=== PATIENT | female | born 1940 | race Caucasian/White ===

== ENCOUNTER 2018-09-13 04:52 | Inpatient (IN) | payer MEDICARE, OTHER ==
[~2018-09-13] VITALS: Ht 152.4 cm; Wt 89.9 kg
[~2018-09-13 04:52] MED LIST: ALEN70TA5 ORAL; AMLO-145 ORAL; ASPI-903 PO; ATEN100T ORAL; ATEN50TA PO; ATOR40TA68 PO; BISA5TAB6 PO; CELE100C85; CLON-230; CLON-379 PO; DULO60CA59 ORAL; ESCI10TA; HYDR-3601 PO; HYDR25TA6 PO; KETO30VI IV; LISI-471 PO; LISI40TA3 ORAL; LUBI24CA7 PO; OSC500D PO; POLY17PO6 PO
[2018-09-13 04:57] VITALS: Ht 152.4 cm; Wt 89.9 kg
[2018-09-13] MEDS ORDERED: ONDANSETRON 4 MG INJ IV STA ×2 (05:02→08:42)
[2018-09-13] MEDS ORDERED: morphine 2 MG INJ IV STA (05:02)
--- NOTE | 2018-09-13 06:36 | ERD ---
ER Documentation Chief Complaint Chief Complaint bib ra from home for lower back pain, s/p fall this morning HPI 77-year-old female who presents to the emergency room complaining of paraspinal diffuse lumbar back pain. The patient lives at home alone and at night she goes to the bathroom regularly. She did not use her cane which is normal for her ambulation. The patient states that she fell to the ground. She occasionally loses her balance and this felt similar. She denies hitting her head or losing consciousness. The patient had bruised her left forearm and fell onto her lumbar back. The patient denies any prodrome of headache chest pain or shortness of breath. Patient is describing moderate throbbing intermittent paraspinal lumbar back pain. No numbness or tingling. She denies any neck pain. No significant pain to the left elbow. ROS All systems reviewed and are negative except as per history of present illness. Medications Home Meds Reported Medications Lisinopril* (Lisinopril*) 40 Mg Tablet, 1 TAB ORAL DAILY 09/13/18 Hydrochlorothiazide* (Hydrochlorothiazide*) 25 Mg Tab, 25 MG PO DAILY, #30 TAB 09/13/18 Duloxetine Hcl* (Duloxetine Hcl*) 60 Mg Capsule.dr, 1 CAP ORAL DAILY 09/13/18 Clonidine Hcl* (Clonidine Hcl*) 0.1 Mg Tab, 0.1 MG PO Q8 PRN for q8, TAB FOR HTN 09/13/18 Calcium Carbonate/Vitamin D3 (Oyster Shell Calcium + D Cplt) 1 Each Tablet, 1 TAB PO DAILY, TAB 09/13/18 Atorvastatin* (Atorvastatin*) 40 Mg Tablet, 40 MG PO QHS, #30 TAB 09/13/18 Atenolol* (Atenolol*) 100 Mg Tablet, 1 TAB ORAL DAILY 09/13/18 Aspirin* (Aspirin* Chew) 81 Mg Tab.chew, 81 MG PO DAILY, TAB.CHEW 09/13/18 Amlodipine Besylate* (Amlodipine Besylate*) 5 Mg Tablet, 1 TAB ORAL DAILY 09/13/18 Alendronate Sodium* (Fosamax*) 70 Mg Tablet, 1 TAB ORAL weekly on Thursday09/13/18 Discontinued Reported Medications Celecoxib* (Celebrex*) 100 Mg Capsule 06/01/09 Clonidine Hcl (Clonidine Hcl) 0.1 Mg Tablet 06/01/09 Escitalopram Oxalate* (Lexapro*) 10 Mg Tablet 06/01/09 Allergies Allergies: Coded Allergies: No Known Allergy (Verified Allergy, Unknown, 06/26/06) PMhx/Soc History of Surgery: Yes (CARDIAC) Anesthesia Reaction: No Hx Neurological Disorder: No Hx Respiratory Disorders: No Hx Cardiac Disorders: Yes (HTN) Hx Psychiatric Problems: No Hx Miscellaneous Medical Probl: Yes (ARTHRITIS) Hx Alcohol Use: No Hx Substance Use: No Hx Tobacco Use: No Smoking Status: Never smoker FmHx Family History: No diabetes Physical Exam Vitals Vital Signs Date Temp Pulse Resp B/P (MAP) Pulse Ox O2 O2 Flow FiO2 Time Delivery Rate 09/13/18 73 17 141/58 96 Room Air 06:58 (85) 09/13/18 98.8 88 19 150/82 100 Room Air 04:57 (104) 09/13/18 98.8 87 19 154/81 100 04:57 (105) Physical Exam Airway is intact Bilateral breath sounds Strong distal pulses No obvious deficits General: Well developed, well nourished, no acute distress Head: Normocephalic, atraumatic Eyes: Pupils equally reactive, EOM intact ENT: Moist mucous membranes Neck: Supple, no lymphadenopathy, No midline tenderness, deformities, step-offs to the cervical spine, full active and passive range of motion without midline pain. Respiratory: Lungs clear bilaterally, no distress, no chest wall tenderness, no crepitus Cardiovascular: RRR, no murmurs, rubs, or gallops Abdominal: Soft, non-tender, non-distended, no peritoneal signs, pelvis is stable : Deferred MSK: No edema, no unilateral swelling, 5/5 strength, no midline tenderness deformities or step-offs to the thoracolumbar spine, there is reproducible soft tissue tenderness to the paraspinal lumbar muscles. Some subtle bruising just distal to the olecranon process of the left upper extremity without bony abnormalities. Normal internal and external rotation of the upper extremity. Normal flexion and extension, pronation and supination. Neurovascular intact distally. Neurologic: Alert and oriented, moving all extremities, normal speech, no focal weakness, no cerebellar signs Skin: No ecchymoses or bruising to the chest or abdomen Psych: Normal mood Result Diagram: 09/13/18 0510 09/13/18 05 Results 24 hrs Laboratory Tests Test 09/13/18 05:10 White Blood Count 8.8 10^3/ul Red Blood Count 4.56 10^6/ul Hemoglobin 12.8 g/dl Hematocrit 40.5 % Mean Corpuscular Volume 88.8 fl Mean Corpuscular Hemoglobin 28.1 pg Mean Corpuscular Hemoglobin Concent 31.6 g/dl Red Cell Distribution Width 12.9 % Platelet Count 249 10^3/UL Mean Platelet Volume 8.6 fl Immature Granulocytes % 1.300 % Neutrophils % 61.7 % Lymphocytes % 26.7 % Monocytes % 9.0 % Eosinophils % 0.8 % Basophils % 0.5 % Nucleated Red Blood Cells % 0.0 /100WBC Immature Granulocytes # 0.110 10^3/ul Neutrophils # 5.4 10^3/ul Lymphocytes # 2.3 10^3/ul Monocytes # 0.8 10^3/ul Eosinophils # 0.1 10^3/ul Basophils # 0.0 10^3/ul Nucleated Red Blood Cells # 0.0 10^3/ul Sodium Level 142 mmol/L Potassium Level 4.3 mmol/L Chloride Level 102 mmol/L Carbon Dioxide Level 30 mmol/L Anion Gap 10 Blood Urea Nitrogen 18 mg/dl Creatinine 0.72 mg/dl Est Glomerular Filtrat Rate mL/min mL/min Glucose Level 125 mg/dl Calcium Level 9.9 mg/dl Total Bilirubin 0.8 mg/dl Direct Bilirubin 0.00 mg/dl Indirect Bilirubin 0.8 mg/dl Aspartate Amino Transf (AST/SGOT) 24 IU/L Alanine Aminotransferase (ALT/SGPT) 21 IU/L Alkaline Phosphatase 66 IU/L Troponin I < 0.012 ng/ml Total Protein 7.6 g/dl Albumin 4.4 g/dl Globulin 3.20 g/dl Albumin/Globulin Ratio 1.37 Lipase 86 U/L Current Medications Medications Dose Sig/Lauryn Start Time Status Last (Trade) Ordered Route PRN Stop Time Admin Dose Reason Admin Morphine 2 mg ONCE STAT 09/13/18 DC 09/13/18 Sulfate IV 05:02 05:10 (morphine) 09/13/18 05:03 Ondansetron 4 mg ONCE STAT 09/13/18 DC 09/13/18 HCl (Zofran IV 05:02 05:10 Inj) 09/13/18 05:03 Morphine 4 mg ONCE STAT 09/13/18 DC 09/13/18 Sulfate IV 08:42 08:47 (morphine) 09/13/18 08:43 Ondansetron 4 mg ONCE STAT 09/13/18 DC 09/13/18 HCl (Zofran IV 08:42 08:47 Inj) 09/13/18 08:43 Ondansetron 4 mg BRIDGE ORDER 09/13/18 HCl (Zofran PRN IV 09:00 Inj) NAUSEA/VOMITI 09/14/18 08:59 NG 650 mg ER BRIDGE 09/13/18 Acetaminophen PRN PO 09:00 (Tylenol .MILD PAIN 09/14/18 08:59 Tab) 1-3 OR TEMP Procedures/MDM EKG, MONITORS, & DIAGNOSTIC IMAGING: CXR: IMPRESSION: 1. No radiographic evidence for acute cardiopulmonary disease 2. Left basilar discoid atelectasis and hemidiaphragmatic elevation 3. Mild cardiomegaly and atherosclerotic vascular disease 4. Status post median sternotomy XR L Spine: IMPRESSION: 1. Indeterminate age T12 anterior superior compression fracture. Consider MR to further evaluate. 2. Grade 1 spondylolisthesis of L4 and L5 without definite evidence for spondylolysis on plain film. Recommend additional imaging 3. Atherosclerotic vascular disease CT L Spine: IMPRESSION: 1. Partially imaged probable acute mild superior endplate compression fracture of T12 with less than 20% height loss. No retropulsion. No central canal compromise. 2. Lumbar vertebral body heights are maintained. 3. Severe discogenic disease and degenerative grade 1 anterolisthesis at L4-L5, as described above. 4. Right pars interarticularis defect at L5-S1 with no spondylolisthesis. 5. Mild lumbar spondylosis/degenerative enthesopathy in the remainder of the lumbar spine, as described above. RPTAT: [facility] CT T Spine IMPRESSION: Acute appearing, mild compression fracture of the superior endplate of T12 vertebral body with less than 20% height loss, no significant retropulsion, and no evidence of extension into the posterior elements. Moderate spondylosis in the remainder of the thoracic spine, as above. RPTAT:AAJJ LAB INTERPRETATION: I reviewed the laboratory testing and it shows no evidence of acute process MEDICAL DECISION MAKING: The patient's fall seems very mechanical and consistent with falls in the past. She does live alone but is able to care for activities of daily living, has frequent visitors throughout the day. She did not use her cane in the evening which is the likely etiology of her fall. The patient had no prodrome of headache chest pain or shortness of breath to suggest more serious etiology such as syncope stroke or ACS. Patient is only really complaining of lumbar back pain. She has a small contusion of the left upper extremity without bony abnormalities, no indication for x-ray imaging. No head trauma or loss of consciousness. Patient is very clear about this. No indication for CT imaging of the brain. She does not take anticoagulation medication. The patient does not meet high-risk criteria and based on NEXUS cervical spine criteria there is no indication for cervical spine imaging at this time. I do believe dedicated imaging of the lumbar spine would be appropriate. The overnight physician ordered x-ray imaging but I believe given the patient's age and body habitus this would be insufficient. CT imaging of the lumbar spine has been ordered. ER COURSE: * Patient was given pain control medication. * Patient is still having bouts of exacerbation of pain. The patient has a T12 compression fracture less than 50%. While outpatient management would be possible the patient lives in a walk up apartment. She is having difficulty ambulating in the emergency room despite a walker. For these reasons inpatient hospitalization for pain control, PT and possible outpatient PT placement would be reasonable. CONSULTATION: None DISPOSITION PLAN: Accepting care team and consultations: I discussed the current laboratory data, diagnostic imaging and emergency care provided. Admitting team: Dr. Serrano Admitting team indication: Insurance directed Departure Diagnosis: Primary Impression: T12 compression fracture Encounter type: initial encounter Qualified Codes: S22.080A - Wedge compression fracture of t11-T12 vertebra, initial encounter for closed fracture Condition: ASHLEY Cade MD Sep 13, 2018 06:36
[2018-09-13] MEDS ORDERED: morphine 4 MG/ML VIAL IV STA (08:42)
[2018-09-13] MEDS ORDERED: ACETAMINOPHEN 325 MG TAB PO PRN (09:00)
[2018-09-13] MEDS ORDERED: ONDANSETRON 4 MG INJ IV PRN (09:00)
--- NOTE | 2018-09-13 09:56 | HP ---
Date/Time of Note Date/Time of Note DATE: 09/13/18 TIME: 09:56 Assessment/Plan VTE Prophylaxis Pharmacological prophylaxis: LMWH Lines/Catheters IV [facility]from [facility] Saline Lock Assessment/Plan Hospital Course 77-year-old female with comorbidities including CAD status post coronary artery bypass grafting, hypertension, dyslipidemia, osteoporosis, osteoarthritis, and obesity who had an unwitnessed fall at home with imaging studies showing mild compression fracture of the superior endplate of T12 vertebral body, who will be admitted to inpatient setting for further treatment and evaluation. 1. Acute T12 vertebral body fracture. Continue pain control. Physical therapy evaluation. 2. Status post fall. Etiology unclear. Obtain brain CT scan to rule out any acute intracranial findings. Physical therapy evaluation. Fall precautions. 3. Hypertension. Resume antihypertensives (decreased dosing to ensure that hypotension is not causing the fall; patient has prior history of falls). 4. CAD, status post coronary artery bypass grafting. Resume aspirin. Resume beta-blockers and FAN inhibitors. 5. Dyslipidemia. Resume statins. 6. Osteoporosis. Resume calcium and vitamin D supplements. 7. Obesity. BMI more than 38 kg/m. Plan: The patient will be admitted to inpatient medical surgical floor. The patient will be started on a low-cholesterol diet. The patient will be started on DVT prophylaxis. The patient will remain a full code. Activities will be with assist . The rest of the patient's management will be based on the clinical course and the results of diagnostic studies. Based on the patient's clinical presentation, she most probably requires at least 1 midnight's stay for further management and evaluation of her clinical presentation. The patient was seen in collaboration with Dr. Serrano. Result Diagram: 09/13/18 0510 09/13/18 0510 Results 24hrs Laboratory Tests Test 09/13/18 05:10 White Blood Count 8.8 Red Blood Count 4.56 Hemoglobin 12.8 Hematocrit 40.5 Mean Corpuscular Volume 88.8 Mean Corpuscular Hemoglobin 28.1 L Mean Corpuscular Hemoglobin Concent 31.6 L Red Cell Distribution Width 12.9 Platelet Count 249 Mean Platelet Volume 8.6 Immature Granulocytes % 1.300 H Neutrophils % 61.7 Lymphocytes % 26.7 Monocytes % 9.0 Eosinophils % 0.8 Basophils % 0.5 Nucleated Red Blood Cells % 0.0 Immature Granulocytes # 0.110 H Neutrophils # 5.4 Lymphocytes # 2.3 Monocytes # 0.8 Eosinophils # 0.1 Basophils # 0.0 Nucleated Red Blood Cells # 0.0 Sodium Level 142 Potassium Level 4.3 Chloride Level 102 Carbon Dioxide Level 30 Anion Gap 10 Blood Urea Nitrogen 18 Creatinine 0.72 Est Glomerular Filtrat Rate mL/min Glucose Level 125 Calcium Level 9.9 Total Bilirubin 0.8 Direct Bilirubin 0.00 Indirect Bilirubin 0.8 Aspartate Amino Transf (AST/SGOT) 24 Alanine Aminotransferase (ALT/SGPT) 21 Alkaline Phosphatase 66 Troponin I < 0.012 Total Protein 7.6 Albumin 4.4 Globulin 3.20 Albumin/Globulin Ratio 1.37 Lipase 86 HPI/ROS Admit Date/Time Admit Date/Time Hx of Present Illness Reason for admission: Back pain, status post fall. This is a 77-year-old female with past medical history of CAD, S/P CABG, hypert ension, dyslipidemia, obesity, osteoporosis, and osteoarthritis. The patient lives alone in her apartment. The patient sustained a fall that was unwitnessed. As per the patient, this happened because she "lost her balance." The patient denied any loss of consciousness, palpitations, or dizziness. The patient fell on her back with impact to the back and to the left forearm. The patient denied hitting her head. The patient was complaining of throbbing back pain and left elbow pain following the fall. The patient denied any numbness or tingling. After the fall, the patient was unable to get up from the floor and she managed to crawl on the floor to reach the telephone to call her daughter. Later, paramedics were called and the patient was brought to the emergency room. The patient denied any urinary incontinence. In the emergency room, the patient underwent imaging studies of the thoracic spine CT showing acute appearing, mild compression fracture of the superior endplate of T12 vertebral body with less than 20% height loss with no significant retropulsion. She was treated with IV morphine in the emergency room. ROS Constitutional: no complaints Eyes: no complaints ENT: no complaints Respiratory: no complaints Cardiovascular: no complaints Gastrointestinal: no complaints Genitourinary: other (Nocturia) Musculoskeletal: back pain, bone/joint pain Skin: no complaints Neurologic: no complaints Endocrine: no complaints Lymphatic: no complaints Psychological: no complaints Immunologic: no complaints PMH/Family/Social Past Medical History 1. Hypertension. 2. CAD. 3. Dyslipidemia. 4. Obesity. 5. Osteoporosis. 6. Osteoarthritis. Medications Current Medications Ondansetron HCl (Zofran Inj) 4 mg BRIDGE ORDER PRN IV NAUSEA/VOMITING; Start 09/13/18 at 09:00; Stop 09/14/18 at 08:59 Acetaminophen (Tylenol Tab) 650 mg ER BRIDGE PRN PO .MILD PAIN 1-3 OR TEMP; Start 09/13/18 at 09:00; Stop 09/14/18 at 08:59 Coded Allergies: No Known Allergy (Verified Allergy, Unknown, 06/26/06) Past Surgical History 1. CABG. 2. Appendectomy. Social History Lives at home by herself. Alcohol Use: none Smoking Status: Never smoker Drug Use: none Exam/Review of Systems Vital Signs Vitals Vital Signs Date Temp Pulse Resp B/P (MAP) Pulse Ox O2 O2 Flow FiO2 Time Delivery Rate 09/13/18 67 17 141/74 95 Room Air 09:18 (96) 09/13/18 98.8 04:57 Exam Exam General: Obese, 77 year-old female lying in bed in no apparent distress. HEENT: Normocephalic, atraumatic. Eyes: Anicteric sclerae, conjunctivae clear. ENT: Nasal septum midline, oral mucosa moist. Neck: Short and obese. Respiratory: Bilaterally diminished breath sounds. No use of accessory muscles of respiration. No adventitious breath sounds. Cardiovascular: S1, S2 heard. Sternotomy scar. Regular rate and rhythm. Abdomen: Soft, nontender, and nondistended. Bowel sounds positive in all 4 quadrants. Genitourinary: Deferred. Extremities: No cyanosis, no clubbing, no edema. Peripheral pulses palpable. Tenderness in the left elbow area. Neurologic: Cranial nerves II through XII grossly intact. The patient is awake, alert, and oriented. Additional Comments Thoracic Spine CT IMPRESSION: Acute appearing, mild compression fracture of the superior endplate of T12 vertebral body with less than 20% height loss, no significant retropulsion, and no evidence of extension into the posterior elements. Moderate spondylosis in the remainder of the thoracic spine. CXR IMPRESSION: 1. No radiographic evidence for acute cardiopulmonary disease 2. Left basilar discoid atelectasis and hemidiaphragmatic elevation 3. Mild cardiomegaly and atherosclerotic vascular disease 4. Status post median sternotomy MACIDO,DENG BUSINESS CONTINUITY MANAGEMENT DIRECTOR Sep 13, 2018 09:56
[2018-09-13 10:00] VITALS: BP 155/67; PULSE 70; RESP 20
[2018-09-13] MEDS ORDERED: NACL 0.9% 3 ML SYG IV SCH (10:00)
--- NOTE | 2018-09-13 10:37 | CONDCODE ---
Medicare Criteria-> INP to OBS Patient still in hospital: Yes Medicare Inp->Obs Criteria met: Yes I personally scribed for DENG AMEZCUA NP ([facility] on 09/13/18 at 10:37. Electronically submitted by Zeinab Martinez ([facility] DENG AMEZCUA NP Sep 13, 2018 10:37
[2018-09-13] MEDS: CALCIUM/VITAMIN D (500/200) TAB PO SCH (10:48)
[2018-09-13] MEDS: LISINOPRIL 20 MG TAB PO SCH (10:48)
[2018-09-13] MEDS: AMLODIPINE 2.5 MG TAB PO SCH (10:48)
[2018-09-13] MEDS: HYDROCHLOROTHIAZIDE 25 MG TAB PO SCH (10:48)
[2018-09-13] MEDS: ASPIRIN 81 MG TAB PO SCH (10:49)
[2018-09-13] MEDS: HYDROCODONE/APAP (5/325) TAB PO PRN ×2 (10:52→16:54)
[2018-09-13] MEDS ORDERED: NAPROXEN 500 MG TAB PO PRN (11:00)
[2018-09-13] MEDS: ENOXAPARIN 40 MG/0.4 ML SYG SC SCH (11:00)
[2018-09-13] MEDS ORDERED: hydrALAzine 20 MG INJ IV PRN (11:00)
[2018-09-13] MEDS: DULOXETINE 30 MG CAP DR PO SCH (12:02)
[2018-09-13] MEDS: ATENOLOL 25 MG TAB PO SCH ×2 (12:03→20:35)
[2018-09-13 14:25] VITALS: BP 109/55; PULSE 71; RESP 18
[2018-09-13] MEDS: ONDANSETRON 4 MG INJ IV PRN (16:15)
[2018-09-13] MEDS: morphine 2 MG INJ IV PRN ×2 (16:15→21:17)
[2018-09-13] MEDS: BISACODYL (EC) 5 MG TAB PO PRN (16:54)
[2018-09-13 19:42] VITALS: BP 151/68; PULSE 84; RESP 18
[2018-09-13 19:45] VITALS: BP 114/55; PULSE 68; RESP 18
[2018-09-13] MEDS: POLYETHYLENE GLYCOL 17 GM PACKET PO SCH (20:34)
[2018-09-13] MEDS: ATORVASTATIN 40 MG TAB PO SCH (20:35)
[2018-09-14] VITALS (7 sets, daily range): BP systolic 126–177; BP diastolic 7–77; PULSE 84–92; RESP 18–20
[2018-09-14] MEDS: ONDANSETRON 4 MG INJ IV PRN ×3 (02:47→16:37)
[2018-09-14] MEDS: ACETAMINOPHEN 325 MG TAB PO PRN ×3 (02:56→22:25)
[2018-09-14] MEDS: HYDROCHLOROTHIAZIDE 25 MG TAB PO SCH (06:53)
--- NOTE | 2018-09-14 08:05 | PN ---
Date/Time of Note Date/Time of Note DATE: 09/14/18 TIME: 08:02 Assessment/Plan VTE Prophylaxis Risk score (from Nsg)>0 risk: 5 SCD applied (from Nsg): Yes Pharmacological prophylaxis: LMWH Lines/Catheters IV Catheter Type (from Nrsg): Saline Lock Assessment/Plan Hospital Course SUBJECTIVE: Constipated. OBJECTIVE: Physical Exam General: Obese, 77 year-old female lying in bed in no apparent distress. HEENT: Normocephalic, atraumatic. Eyes: Anicteric sclerae, conjunctivae clear. ENT: Nasal septum midline, oral mucosa moist. Neck: Short and obese. Respiratory: Bilaterally diminished breath sounds. No use of accessory muscles of respiration. No adventitious breath sounds. Cardiovascular: S1, S2 heard. Sternotomy scar. Regular rate and rhythm. Abdomen: Soft, nontender, and nondistended. Bowel sounds positive in all 4 quadrants. Genitourinary: Deferred. Extremities: No cyanosis, no clubbing, no edema. Peripheral pulses palpable. Tenderness in the left elbow area. Neurologic: Cranial nerves II through XII grossly intact. The patient is awake, alert, and oriented. Labs & Vitals per chart ASSESSMENT & PLAN 77-year-old female with comorbidities including CAD status post coronary artery bypass grafting, hypertension, dyslipidemia, osteoporosis, osteoarthritis, and obesity who had an unwitnessed fall at home with imaging studies showing mild compression fracture of the superior endplate of T12 vertebral body, who was admitted to inpatient setting for further treatment and evaluation. 1. Acute T12 vertebral body fracture. Continue pain control. Physical therapy evaluation. 2. Status post fall. Etiology unclear. Brain CT scan negative for any stroke. Physical therapy evaluation. Fall precautions. 3. Hypertension. Continue antihypertensives (decreased dosing to ensure that hypotension is not causing the fall; patient has prior history of falls). 4. CAD, status post coronary artery bypass grafting. Continue aspirin. Continue beta-blockers and FAN inhibitors. 5. Dyslipidemia. Continue statins. 6. Osteoporosis. Continue calcium and vitamin D supplements. 7. Obesity. BMI more than 38 kg/m. 8. Fluids, electrolytes, and nutrition. Low-cholesterol diet. 9. DVT prophylaxis. Subcutaneous Lovenox. 10. Plan. Continue pain control. Await physical therapy evaluation. Discharge disposition based on physical therapy evaluation. The patient was seen in collaboration with Dr. Serrano. Result Diagram: 09/14/18 0446 09/14/18 0446 Results 24hrs Laboratory Tests Test 09/13/18 20:00 09/14/18 04:46 Urine Color YELLOW Urine Clarity CLEAR Urine pH 7.0 Urine Specific [place] 1.013 Urine Ketones NEGATIVE Urine Nitrite NEGATIVE Urine Bilirubin NEGATIVE Urine Urobilinogen NEGATIVE Urine Leukocyte Esterase NEGATIVE Urine Microscopic RBC 3 Urine Microscopic WBC 0 Urine Bacteria FEW A Urine Hemoglobin 1+ H Urine Glucose NEGATIVE Urine Total Protein NEGATIVE White Blood Count 13.2 #H Red Blood Count 4.82 Hemoglobin 13.4 Hematocrit 43.0 Mean Corpuscular Volume 89.2 Mean Corpuscular Hemoglobin 27.8 L Mean Corpuscular Hemoglobin Concent 31.2 L Red Cell Distribution Width 12.7 Platelet Count 318 # Mean Platelet Volume 8.7 Immature Granulocytes % 0.900 H Neutrophils % 73.1 Lymphocytes % 20.3 Monocytes % 5.4 Eosinophils % 0.1 Basophils % 0.2 Nucleated Red Blood Cells % 0.0 Immature Granulocytes # 0.120 H Neutrophils # 9.7 H Lymphocytes # 2.7 Monocytes # 0.7 Eosinophils # 0.0 Basophils # 0.0 Nucleated Red Blood Cells # 0.0 Sodium Level 136 Potassium Level 3.6 Chloride Level 91 #L Carbon Dioxide Level 32 H Anion Gap 13 Blood Urea Nitrogen 13 Creatinine 0.70 Est Glomerular Filtrat Rate mL/min Glucose Level 168 Calcium Level 10.2 Phosphorus Level 4.9 Magnesium Level 1.7 Total Bilirubin 0.8 Direct Bilirubin 0.00 Indirect Bilirubin 0.8 Aspartate Amino Transf (AST/SGOT) 27 Alanine Aminotransferase (ALT/SGPT) 20 Alkaline Phosphatase 72 Total Protein 8.1 Albumin 4.9 Globulin 3.20 Albumin/Globulin Ratio 1.53 Triglycerides Level 139 Cholesterol Level 167 LDL Cholesterol, Calculated 86 HDL Cholesterol 53 Cholesterol/HDL Ratio 3.1 Exam/Review of Systems Exam Vitals Vital Signs Date Temp Pulse Resp B/P (MAP) Pulse Ox O2 O2 Flow FiO2 Time Delivery Rate 09/14/18 97.9 89 18 159/70 93 02:00 (99) 09/13/18 Room Air 10:00 Results Results 24hrs Laboratory Tests Test 09/13/18 20:00 09/14/18 04:46 Urine Color YELLOW Urine Clarity CLEAR Urine pH 7.0 Urine Specific [place] 1.013 Urine Ketones NEGATIVE Urine Nitrite NEGATIVE Urine Bilirubin NEGATIVE Urine Urobilinogen NEGATIVE Urine Leukocyte Esterase NEGATIVE Urine Microscopic RBC 3 Urine Microscopic WBC 0 Urine Bacteria FEW A Urine Hemoglobin 1+ H Urine Glucose NEGATIVE Urine Total Protein NEGATIVE White Blood Count 13.2 #H Red Blood Count 4.82 Hemoglobin 13.4 Hematocrit 43.0 Mean Corpuscular Volume 89.2 Mean Corpuscular Hemoglobin 27.8 L Mean Corpuscular Hemoglobin Concent 31.2 L Red Cell Distribution Width 12.7 Platelet Count 318 # Mean Platelet Volume 8.7 Immature Granulocytes % 0.900 H Neutrophils % 73.1 Lymphocytes % 20.3 Monocytes % 5.4 Eosinophils % 0.1 Basophils % 0.2 Nucleated Red Blood Cells % 0.0 Immature Granulocytes # 0.120 H Neutrophils # 9.7 H Lymphocytes # 2.7 Monocytes # 0.7 Eosinophils # 0.0 Basophils # 0.0 Nucleated Red Blood Cells # 0.0 Sodium Level 136 Potassium Level 3.6 Chloride Level 91 #L Carbon Dioxide Level 32 H Anion Gap 13 Blood Urea Nitrogen 13 Creatinine 0.70 Est Glomerular Filtrat Rate mL/min Glucose Level 168 Calcium Level 10.2 Phosphorus Level 4.9 Magnesium Level 1.7 Total Bilirubin 0.8 Direct Bilirubin 0.00 Indirect Bilirubin 0.8 Aspartate Amino Transf (AST/SGOT) 27 Alanine Aminotransferase (ALT/SGPT) 20 Alkaline Phosphatase 72 Total Protein 8.1 Albumin 4.9 Globulin 3.20 Albumin/Globulin Ratio 1.53 Triglycerides Level 139 Cholesterol Level 167 LDL Cholesterol, Calculated 86 HDL Cholesterol 53 Cholesterol/HDL Ratio 3.1 Medications Medication Current Medications IV Flush (NS 3 ml) 3 ml PER PROTOCOL IV ; Start 09/13/18 at 10:00 Ondansetron HCl (Zofran Inj) 4 mg Q6H PRN IV NAUSEA/VOMITING Last administered on 09/14/18at 02:47; Admin Dose 4 MG; Start 09/13/18 at 10:00 Acetaminophen (Tylenol Tab) 650 mg Q6H PRN PO .PAIN 1-3 OR TEMP Last administered on 09/14/18at 02:56; Admin Dose 650 MG; Start 09/13/18 at 10:00 Acetaminophen/ Hydrocodone Bitart ([place] (5/325)) 1 tab Q6H PRN PO .MOD PAIN 4- 6 Last administered on 09/13/18at 16:54; Admin Dose 1 TAB; Start 09/13/18 at 10:00 Morphine Sulfate (morphine) 2 mg Q4H PRN IV .SEVERE PAIN 7-10 Last administered on 09/13/18 21:17; Admin Dose 2 MG; Start 09/13/18 at 10:00 Enoxaparin Sodium (Lovenox) 40 mg DAILY SC Last administered on 09/13/18 11:00; Admin Dose 40 MG; Start 09/13/18 at 10:00 Aspirin (Aspirin) 81 mg DAILY PO Last administered on 09/13/18 10:49; Admin Dose 81 MG; Start 09/13/18 at 10:00 Atorvastatin Calcium (Lipitor) 40 mg QHS PO Last administered on 09/13/18 20:35; Admin Dose 40 MG; Start 09/13/18 at 21:00 Calcium/Vitamin D (Oyster Shell/ Vit-D (500/200)) 1 tab DAILY PO Last administered on 09/13/18 10:48; Admin Dose 1 TAB; Start 09/13/18 at 10:00 Hydrochlorothiazide (Hydrochlorothiazide) 25 mg DAILY@0600 PO Last administered on 09/14/18 06:53; Admin Dose 25 MG; Start 09/13/18 at 10:00 Amlodipine Besylate (Norvasc) 2.5 mg DAILY PO Last administered on 09/13/18 10:48; Admin Dose 2.5 MG; Start 09/13/18 at 10:00 Lisinopril (Zestril) 20 mg DAILY PO Last administered on 09/13/18 10:48; Admin Dose 20 MG; Start 09/13/18 at 10:00 Atenolol (Tenormin) 25 mg BID PO Last administered on 09/13/18 20:35; Admin Dose 25 MG; Start 09/13/18 at 11:00 Hydralazine HCl (Apresoline) 10 mg Q6H PRN IV SbP>160; Start 09/13/18 at 11:00 Duloxetine HCl (Cymbalta) 60 mg DAILY PO Last administered on 09/13/18at 12:02; Admin Dose 60 MG; Start 09/13/18 at 11:00 Naproxen (Naprosyn) 500 mg Q8H PRN PO MILD PAIN LEVEL 1-3; Start 09/13/18 at 11:00 Polyethylene Glycol (Miralax) 17 gm BID PO Last administered on 09/13/18at 20:34; Admin Dose 17 GM; Start 09/13/18 at 21:00 Bisacodyl (Dulcolax) 10 mg DAILY PRN PO CONSTIPATION Last administered on 09/13at 16:54; Admin Dose 10 MG; Start 09/13/18 at 16:30 DENG AMEZCUA NP Sep 14, 2018 08:05
[2018-09-14] MEDS: morphine 2 MG INJ IV PRN (08:54)
[2018-09-14] MEDS: CALCIUM/VITAMIN D (500/200) TAB PO SCH (08:56)
[2018-09-14] MEDS: ATENOLOL 25 MG TAB PO SCH ×2 (08:57→20:28)
[2018-09-14] MEDS: DULOXETINE 30 MG CAP DR PO SCH (08:57)
[2018-09-14] MEDS: AMLODIPINE 2.5 MG TAB PO SCH (08:58)
[2018-09-14] MEDS: LISINOPRIL 20 MG TAB PO SCH (08:58)
[2018-09-14] MEDS: ASPIRIN 81 MG TAB PO SCH (08:58)
[2018-09-14] MEDS: POLYETHYLENE GLYCOL 17 GM PACKET PO SCH ×2 (08:58→20:27)
[2018-09-14] MEDS: ENOXAPARIN 40 MG/0.4 ML SYG SC SCH (09:01)
[2018-09-14] MEDS ORDERED: MAGNESIUM CITRATE 300 ML BTL PO ONE (11:00)
[2018-09-14] MEDS: KETOROLAC 30 MG INJ IV PRN (12:04)
[2018-09-14] MEDS ORDERED: NA PHOSPHATE/BIPHOS 133 ML ENEMA PR ONE (14:00)
[2018-09-14] MEDS: FAMOTIDINE 20 MG TAB PO SCH (20:27)
[2018-09-14] MEDS: ATORVASTATIN 40 MG TAB PO SCH (20:27)
[2018-09-15 02:24] VITALS: BP 125/60; PULSE 75; RESP 18
[2018-09-15] MEDS: HYDROCHLOROTHIAZIDE 25 MG TAB PO SCH (06:37)
[2018-09-15] MEDS: morphine 2 MG INJ IV PRN (06:37)
[2018-09-15] MEDS: ONDANSETRON 4 MG INJ IV PRN (06:38)
[2018-09-15 07:58] VITALS: BP 122/72; PULSE 81; RESP 18
[2018-09-15] MEDS: ASPIRIN 81 MG TAB PO SCH (08:43)
[2018-09-15] MEDS: DULOXETINE 30 MG CAP DR PO SCH (08:43)
[2018-09-15] MEDS: FAMOTIDINE 20 MG TAB PO SCH ×2 (08:44→21:37)
[2018-09-15] MEDS: ATENOLOL 25 MG TAB PO SCH (08:44)
[2018-09-15] MEDS: AMLODIPINE 2.5 MG TAB PO SCH (08:45)
[2018-09-15] MEDS: LISINOPRIL 20 MG TAB PO SCH (08:45)
[2018-09-15] MEDS: POLYETHYLENE GLYCOL 17 GM PACKET PO SCH ×2 (08:46→21:42)
[2018-09-15] MEDS: ENOXAPARIN 40 MG/0.4 ML SYG SC SCH (08:50)
[2018-09-15] MEDS: CALCIUM/VITAMIN D (500/200) TAB PO SCH (08:54)
[2018-09-15] MEDS: SOD CHLORIDE 0.9% 1,000 ML IV SCH (09:20)
--- NOTE | 2018-09-15 10:01 | PN ---
Date/Time of Note Date/Time of Note DATE: 09/15/18 TIME: 10:00 Assessment/Plan VTE Prophylaxis Risk score (from Nsg)>0 risk: 5 SCD applied (from Nsg): Yes Pharmacological prophylaxis: LMWH Lines/Catheters IV Catheter Type (from Nrsg): Saline Lock Urinary Cath still in place: No Assessment/Plan Hospital Course SUBJECTIVE: Complains of abdominal pain. OBJECTIVE: Physical Exam General: Obese, 77 year-old female lying in bed in no apparent distress. HEENT: Normocephalic, atraumatic. Eyes: Anicteric sclerae, conjunctivae clear. ENT: Nasal septum midline, oral mucosa moist. Neck: Short and obese. Respiratory: Bilaterally diminished breath sounds. No use of accessory muscles of respiration. No adventitious breath sounds. Cardiovascular: S1, S2 heard. Sternotomy scar. Regular rate and rhythm. Abdomen: Distended. Diffuse tenderness. Genitourinary: Deferred. Extremities: No cyanosis, no clubbing, no edema. Peripheral pulses palpable. Tenderness in the left elbow area. Neurologic: Cranial nerves II through XII grossly intact. The patient is awake, alert, and oriented. Labs & Vitals per chart ASSESSMENT & PLAN 77-year-old female with comorbidities including CAD status post coronary artery bypass grafting, hypertension, dyslipidemia, osteoporosis, osteoarthritis, and obesity who had an unwitnessed fall at home with imaging studies showing mild compression fracture of the superior endplate of T12 vertebral body, who was admitted to inpatient setting for further treatment and evaluation. 1. Acute T12 vertebral body fracture. Continue pain control. Physical therapy evaluation. 2. Status post fall. Etiology unclear. Brain CT scan negative for any stroke. Physical therapy evaluation. Fall precautions. 3. Hypertension. Continue antihypertensives (decreased dosing to ensure that hypotension is not causing the fall; patient has prior history of falls). 4. Abdominal pain with KUB suggesting adynamic ileus. Keep the patient n.p.o. Obtain CT scan of the abdomen and pelvis (known history of diverticulosis and diverticulitis). Obtain general surgery consult. 5. CAD, status post coronary artery bypass grafting. Continue aspirin. Continue beta-blockers and FAN inhibitors. 6. Dyslipidemia. Continue statins. 7. Osteoporosis. Continue calcium and vitamin D supplements. 8. Obesity. BMI more than 38 kg/m. 9. Fluids, electrolytes, and nutrition. N.p.o. except for medications. 10. DVT prophylaxis. Subcutaneous Lovenox. 11. Plan. Continue pain control. Keep the patient n.p.o. Obtain surgical consult. Obtain abdominal CT scan. Plan of care was explained to the patient's daughter over the phone. The patient was seen in collaboration with Dr. Serrano. Result Diagram: 09/15/1844009/15/181 Results 24hrs Laboratory Tests Test 09/15/18 04:41 White Blood Count 9.3 # Red Blood Count 4.61 Hemoglobin 12.8 Hematocrit 40.0 Mean Corpuscular Volume 86.8 Mean Corpuscular Hemoglobin 27.8 L Mean Corpuscular Hemoglobin Concent 32.0 Red Cell Distribution Width 12.8 Platelet Count 266 Mean Platelet Volume 8.8 Immature Granulocytes % 0.400 Neutrophils % 65.1 Lymphocytes % 23.5 Monocytes % 10.0 Eosinophils % 0.8 Basophils % 0.2 Nucleated Red Blood Cells % 0.0 Immature Granulocytes # 0.040 H Neutrophils # 6.0 Lymphocytes # 2.2 Monocytes # 0.9 Eosinophils # 0.1 Basophils # 0.0 Nucleated Red Blood Cells # 0.0 Sodium Level 135 Potassium Level 3.5 Chloride Level 92 L Carbon Dioxide Level 35 H Anion Gap 8 Blood Urea Nitrogen 18 Creatinine 0.79 Est Glomerular Filtrat Rate mL/min Glucose Level 124 # Calcium Level 9.6 Phosphorus Level 3.9 Magnesium Level 2.1 Exam/Review of Systems Exam Vitals Vital Signs Date Temp Pulse Resp B/P (MAP) Pulse Ox O2 O2 Flow FiO2 Time Delivery Rate 09/15/18 98.3 81 18 122/72 99 Room Air 07:58 (89) Intake and Output 09/14/18 09/14/18 09/15/18 1515:00 23:00 07:00 IntakeIntake Total 200 ml BalanceBalance 200 ml Results Results 24hrs Laboratory Tests Test 09/15/18 04:41 White Blood Count 9.3 # Red Blood Count 4.61 Hemoglobin 12.8 Hematocrit 40.0 Mean Corpuscular Volume 86.8 Mean Corpuscular Hemoglobin 27.8 L Mean Corpuscular Hemoglobin Concent 32.0 Red Cell Distribution Width 12.8 Platelet Count 266 Mean Platelet Volume 8.8 Immature Granulocytes % 0.400 Neutrophils % 65.1 Lymphocytes % 23.5 Monocytes % 10.0 Eosinophils % 0.8 Basophils % 0.2 Nucleated Red Blood Cells % 0.0 Immature Granulocytes # 0.040 H Neutrophils # 6.0 Lymphocytes # 2.2 Monocytes # 0.9 Eosinophils # 0.1 Basophils # 0.0 Nucleated Red Blood Cells # 0.0 Sodium Level 135 Potassium Level 3.5 Chloride Level 92 L Carbon Dioxide Level 35 H Anion Gap 8 Blood Urea Nitrogen 18 Creatinine 0.79 Est Glomerular Filtrat Rate mL/min Glucose Level 124 # Calcium Level 9.6 Phosphorus Level 3.9 Magnesium Level 2.1 Medications Medication Current Medications IV Flush (NS 3 ml) 3 ml PER PROTOCOL IV ; Start 09/13/18 at 10:00 Ondansetron HCl (Zofran Inj) 4 mg Q6H PRN IV NAUSEA/VOMITING Last administered on 09/15/18 06:38; Admin Dose 4 MG; Start 09/13/18 at 10:00 Acetaminophen (Tylenol Tab) 650 mg Q6H PRN PO .PAIN 1-3 OR TEMP Last administered on 09/14/18 22:25; Admin Dose 650 MG; Start 09/13/18 at 10:00 Acetaminophen/ Hydrocodone Bitart ([place] (5/325)) 1 tab Q6H PRN PO .MOD PAIN 4- 6 Last administered on 09/13/18 16:54; Admin Dose 1 TAB; Start 09/13/18 at 10:00 Morphine Sulfate (morphine) 2 mg Q4H PRN IV .SEVERE PAIN 7-10 Last administered on 09/15/18 06:37; Admin Dose 2 MG; Start 09/13/18 at 10:00 Enoxaparin Sodium (Lovenox) 40 mg DAILY SC Last administered on 09/15/18 08:50; Admin Dose 40 MG; Start 09/13/18 at 10:00 Aspirin (Aspirin) 81 mg DAILY PO Last administered on 09/15/18 08:43; Admin Dose 81 MG; Start 09/13/18 at 10:00 Atorvastatin Calcium (Lipitor) 40 mg QHS PO Last administered on 09/14/18 20:27; Admin Dose 40 MG; Start 09/13/18 at 21:00 Calcium/Vitamin D ([place]/ Vit-D (500/200)) 1 tab DAILY PO Last administered on 09/15/18 08:54; Admin Dose 1 TAB; Start 09/13/18 at 10:00 Hydrochlorothiazide (Hydrochlorothiazide) 25 mg DAILY@0600 PO Last administered on 09/15/18 06:37; Admin Dose 25 MG; Start 09/13/18 at 10:00 Amlodipine Besylate (Norvasc) 2.5 mg DAILY PO Last administered on 09/15/18 08:45; Admin Dose 2.5 MG; Start 09/13/18 at 10:00 Lisinopril (Zestril) 20 mg DAILY PO Last administered on 09/15/18 08:45; Admin Dose 20 MG; Start 09/13/18 at 10:00 Atenolol (Tenormin) 25 mg BID PO Last administered on 09/15/18 08:44; Admin Dose 25 MG; Start 09/13/18 at 11:00 Hydralazine HCl (Apresoline) 10 mg Q6H PRN IV SbP>160 Last administered on 09/14/18 16:26; Admin Dose 10 MG; Start 09/13/18 at 11:00 Duloxetine HCl (Cymbalta) 60 mg DAILY PO Last administered on 09/15/18 08:43; Admin Dose 60 MG; Start 09/13/18 at 11:00 Polyethylene Glycol (Miralax) 17 gm BID PO Last administered on 09/15/18 0 8:46; Admin Dose 17 GM; Start 09/13/18 at 21:00 Bisacodyl (Dulcolax) 10 mg DAILY PRN PO CONSTIPATION Last administered on 09/13/18 16:54; Admin Dose 10 MG; Start 09/13/18 at 16:30 Ketorolac Tromethamine (Toradol) 30 mg Q6H PRN IV PAIN LEVEL 1-3 Last administered on 09/14/18 12:04; Admin Dose 30 MG; Start 09/14/18 at 10:00; Stop 09/16/18 at 10:00 Famotidine (Pepcid) 20 mg BID PO Last administered on 09/15/18 08:44; Admin Dose 20 MG; Start 09/14/18 at 21:00 Sodium Chloride 1,000 ml @ 60 mls/hr [id number] IV Last administered on 09/15/18 09:20; Admin Dose 60 MLS/HR; Start 09/15/18 at 09:30 DENG AMEZCUA NP Sep 15, 2018 10:01
--- NOTE | 2018-09-15 11:08 | CONS ---
Assessment/Plan Assessment/Plan Hospital Course (Demo Recall) 1. Abdominal pain with concern for adynamic ileus; KUB with noted gas throughout small bowel and colon without evidence of obstruction, however + flatus and active bowel sounds; Minimal nausea -Maintain n.p.o. for now -We will start simethicone -Encourage ambulation -Limit narcotic medications -CT abdomen pending 2. T12 vertebral body fracture status post fall: -Pain control preferably with nonnarcotics -Fall precautions -Continue physical therapy 3. Hypertension, CAD history -Medical management -Highly encouraged weight loss 4.Obesity BMI: 39 -diet and exercise optimization -encourage weight loss 5. Osteoarthritis, Osteoporosis: -Medical management Thank you. Patient seen and examined in collaboration with Dr. Isac Figueredo. Consultation Date/Type/Reason Admit Date/Time Date of Consultation: Sep 15, 2018 Type of Consult Surgical Reason for Consultation Abdominal pain, ileus Requesting Provider: DENG AMEZCUA NP Date/Time of Note DATE: 09/15/18 TIME: 10:54 Hx of Present Illness Manjit Antunez is a 77-year-old woman with multiple comorbidities who presented after an unwitnessed fall at home and was found to have mild compression fracture of the superior endplate of T12 vertebral body. Reportedly, she had lost her balance and sustained a fall. She is currently in house receiving physical therapy. No recent reports of fevers, chills, congested cough, chest pain, palpitations, nausea, vomiting, diarrhea, seizure, rash, dizziness, neurologic symptoms. While in-house, she began to have abdominal pain. Abdominal imaging noted gas throughout small bowel and colon concerning for adynamic ileus without evidence of complete small bowel obstruction. She reports having had her last bowel movement 2 days ago. She is currently passing flatus. General surgery was asked to evaluate. 12 point review of systems was reviewed and is negative except for as stated in HPI Past Medical History Hypertension CAD Dyslipidemia Obesity Osteoporosis Osteoarthritis Home Meds Reported Medications Lisinopril* (Lisinopril*) 40 Mg Tablet, 1 TAB ORAL DAILY 09/13/18 Hydrochlorothiazide* (Hydrochlorothiazide*) 25 Mg Tab, 25 MG PO DAILY, #30 TAB 09/13/18 Duloxetine Hcl* (Duloxetine Hcl*) 60 Mg Capsule.dr, 1 CAP ORAL DAILY 09/13/18 Clonidine Hcl* (Clonidine Hcl*) 0.1 Mg Tab, 0.1 MG PO Q8 PRN for q8, TAB FOR HTN 09/13/18 Calcium Carbonate/Vitamin D3 (Oyster Shell Calcium + D Cplt) 1 Each Tablet, 1 TAB PO DAILY, TAB 09/13/18 Atorvastatin* (Atorvastatin*) 40 Mg Tablet, 40 MG PO QHS, #30 TAB 09/13/18 Atenolol* (Atenolol*) 100 Mg Tablet, 1 TAB ORAL DAILY 09/13/18 Aspirin* (Aspirin* Chew) 81 Mg Tab.chew, 81 MG PO DAILY, TAB.CHEW 09/13/18 Amlodipine Besylate* (Amlodipine Besylate*) 5 Mg Tablet, 1 TAB ORAL DAILY 09/13/18 Alendronate Sodium* (Fosamax*) 70 Mg Tablet, 1 TAB ORAL weekly on Thursday09/13/18 Discontinued Reported Medications Celecoxib* (Celebrex*) 100 Mg Capsule 06/01/09 Clonidine Hcl (Clonidine Hcl) 0.1 Mg Tablet 06/01/09 Escitalopram Oxalate* (Lexapro*) 10 Mg Tablet 06/01/09 Medications Current Medications IV Flush (NS 3 ml) 3 ml PER PROTOCOL IV ; Start 09/13/18 at 10:00 Ondansetron HCl (Zofran Inj) 4 mg Q6H PRN IV NAUSEA/VOMITING Last administered on 09/15/18at 06:38; Admin Dose 4 MG; Start 09/13/18 at 10:00 Acetaminophen (Tylenol Tab) 650 mg Q6H PRN PO .PAIN 1-3 OR TEMP Last administered on 09/14/18at 22:25; Admin Dose 650 MG; Start 09/13/18 at 10:00 Acetaminophen/ Hydrocodone Bitart ([place] (5/325)) 1 tab Q6H PRN PO .MOD PAIN 4- 6 Last administered on 09/13/18at 16:54; Admin Dose 1 TAB; Start 09/13/18 at 10:00 Morphine Sulfate (morphine) 2 mg Q4H PRN IV .SEVERE PAIN 7-10 Last administered on 09/15/18at 06:37; Admin Dose 2 MG; Start 09/13/18 at 10:00 Enoxaparin Sodium (Lovenox) 40 mg DAILY SC Last administered on 09/15/18at 08:50; Admin Dose 40 MG; Start 09/13/18 at 10:00 Aspirin (Aspirin) 81 mg DAILY PO Last administered on 09/15/18 08:43; Admin Dose 81 MG; Start 09/13/18 at 10:00 Atorvastatin Calcium (Lipitor) 40 mg QHS PO Last administered on 09/14/18 20:27; Admin Dose 40 MG; Start 09/13/18 at 21:00 Calcium/Vitamin D (Oyster Shell/ Vit-D (500/200)) 1 tab DAILY PO Last administered on 09/15/18 08:54; Admin Dose 1 TAB; Start 09/13/18 at 10:00 Hydrochlorothiazide (Hydrochlorothiazide) 25 mg DAILY@0600 PO Last administered on 09/15/18 06:37; Admin Dose 25 MG; Start 09/13/18 at 10:00 Amlodipine Besylate (Norvasc) 2.5 mg DAILY PO Last administered on 09/15/18 08:45; Admin Dose 2.5 MG; Start 09/13/18 at 10:00 Lisinopril (Zestril) 20 mg DAILY PO Last administered on 09/15/18 08:45; Admin Dose 20 MG; Start 09/13/18 at 10:00 Hydralazine HCl (Apresoline) 10 mg Q6H PRN IV SbP>160 Last administered on 09/14/18 16:26; Admin Dose 10 MG; Start 09/13/18 at 11:00 Duloxetine HCl (Cymbalta) 60 mg DAILY PO Last administered on 09/15/18 08:43; Admin Dose 60 MG; Start 09/13/18 at 11:00 Polyethylene Glycol (Miralax) 17 gm BID PO Last administered on 09/15/18 08:46; Admin Dose 17 GM; Start 09/13/18 at 21:00 Bisacodyl (Dulcolax) 10 mg DAILY PRN PO CONSTIPATION Last administered on 09/13/18 16:54; Admin Dose 10 MG; Start 09/13/18 at 16:30 Ketorolac Tromethamine (Toradol) 30 mg Q6H PRN IV PAIN LEVEL 1-3 Last administ ered on 09/14/18 12:04; Admin Dose 30 MG; Start 09/14/18 at 10:00; Stop 09/16/18 at 10:00 Famotidine (Pepcid) 20 mg BID PO Last administered on 09/15/18at 08:44; Admin Dose 20 MG; Start 09/14/18 at 21:00 Sodium Chloride 1,000 ml @ 60 mls/hr [id number] IV Last administered on 09/15/18at 09:20; Admin Dose 60 MLS/HR; Start 09/15/18 at 09:30 Atenolol (Tenormin) 50 mg BID PO ; Start 09/15/18 at 21:00 Allergies: Coded Allergies: No Known Allergy (Verified Allergy, Unknown, 06/26/06) Past Surgical History CABG Appendectomy Family History Significant Family History: no pertinent family hx Social History Alcohol Use: none Smoking Status: Never smoker Drug Use: none Exam/Review of Systems Exam Vitals Vital Signs Date Temp Pulse Resp B/P (MAP) Pulse Ox O2 O2 Flow FiO2 Time Delivery Rate 09/15/18 98.3 81 18 122/72 99 Room Air 07:58 (89) Intake and Output 09/14/18 09/14/18 09/15/18 1515:00 23:00 07:00 IntakeIntake Total 200 ml BalanceBalance 200 ml Constitutional: alert, oriented, well developed Psych: nl mood/affect, anxiety (Minimal) Head: normocephalic, atraumatic Eyes: nl conjunctiva, nl lids, nl sclera ENMT: nl external ears & nose, nl nasal mucosa & septum, mucosa pink and moist Neck: supple, non-tender; No jvd Respiratory: normal air movement; No congested cough Cardiovascular: regular rate and rhythm, nl pulses; No edema Gastrointestinal: soft, bowel sounds (X4 quads quadrants), distended (Moderate), other (+ Flatus; rectal exam: Good rectal tone, no noted impacted stool); No rebound or guarding, No tender Genitourinary - Female: nl external genitalia Musculoskeletal: nl extremities to inspection, nl gait and stance Extremities: normal pulses Neurological: nl mental status, nl speech; No nl strength (Generalized weakness) Skin: nl turgor; No rash or lesions Lymph: nl lymph nodes Results Result Diagram: 09/15/181 09/15/18 0441 Results 24hrs Laboratory Tests Test 09/15/18 04:41 White Blood Count 9.3 # Red Blood Count 4.61 Hemoglobin 12.8 Hematocrit 40.0 Mean Corpuscular Volume 86.8 Mean Corpuscular Hemoglobin 27.8 L Mean Corpuscular Hemoglobin Concent 32.0 Red Cell Distribution Width 12.8 Platelet Count 266 Mean Platelet Volume 8.8 Immature Granulocytes % 0.400 Neutrophils % 65.1 Lymphocytes % 23.5 Monocytes % 10.0 Eosinophils % 0.8 Basophils % 0.2 Nucleated Red Blood Cells % 0.0 Immature Granulocytes # 0.040 H Neutrophils # 6.0 Lymphocytes # 2.2 Monocytes # 0.9 Eosinophils # 0.1 Basophils # 0.0 Nucleated Red Blood Cells # 0.0 Sodium Level 135 Potassium Level 3.5 Chloride Level 92 L Carbon Dioxide Level 35 H Anion Gap 8 Blood Urea Nitrogen 18 Creatinine 0.79 Est Glomerular Filtrat Rate mL/min Glucose Level 124 # Calcium Level 9.6 Phosphorus Level 3.9 Magnesium Level 2.1 Medications Medication Current Medications IV Flush (NS 3 ml) 3 ml PER PROTOCOL IV ; Start 09/13/18 at 10:00 Ondansetron HCl (Zofran Inj) 4 mg Q6H PRN IV NAUSEA/VOMITING Last administered on 09/15/18 06:38; Admin Dose 4 MG; Start 09/13/18 at 10:00 Acetaminophen (Tylenol Tab) 650 mg Q6H PRN PO .PAIN 1-3 OR TEMP Last administered on 09/14/18at 22:25; Admin Dose 650 MG; Start 09/13/18 at 10:00 Acetaminophen/ Hydrocodone Bitart ([place] (5/325)) 1 tab Q6H PRN PO .MOD PAIN 4- 6 Last administered on 09/13/18 16:54; Admin Dose 1 TAB; Start 09/13/18 at 10:00 Morphine Sulfate (morphine) 2 mg Q4H PRN IV .SEVERE PAIN 7-10 Last administered on 09/15/18 06:37; Admin Dose 2 MG; Start 09/13/18 at 10:00 Enoxaparin Sodium (Lovenox) 40 mg DAILY SC Last administered on 09/15/18 08:50; Admin Dose 40 MG; Start 09/13/18 at 10:00 Aspirin (Aspirin) 81 mg DAILY PO Last administered on 09/15/18 08:43; Admin Dose 81 MG; Start 09/13/18 at 10:00 Atorvastatin Calcium (Lipitor) 40 mg QHS PO Last administered on 09/14/18 20 :27; Admin Dose 40 MG; Start 09/13/18 at 21:00 Calcium/Vitamin D (Oyster Shell/ Vit-D (500/200)) 1 tab DAILY PO Last administered on 09/15/18 08:54; Admin Dose 1 TAB; Start 09/13/18 at 10:00 Hydrochlorothiazide (Hydrochlorothiazide) 25 mg DAILY@0600 PO Last administered on 09/15/18 06:37; Admin Dose 25 MG; Start 09/13/18 at 10:00 Amlodipine Besylate (Norvasc) 2.5 mg DAILY PO Last administered on 09/15/18 08:45; Admin Dose 2.5 MG; Start 09/13/18 at 10:00 Lisinopril (Zestril) 20 mg DAILY PO Last administered on 09/15/18 08:45; Admin Dose 20 MG; Start 09/13/18 at 10:00 Hydralazine HCl (Apresoline) 10 mg Q6H PRN IV SbP>160 Last administered on 09/14/18 16:26; Admin Dose 10 MG; Start 09/13/18 at 11:00 Duloxetine HCl (Cymbalta) 60 mg DAILY PO Last administered on 09/15/18 08:43; Admin Dose 60 MG; Start 09/13/18 at 11:00 Polyethylene Glycol (Miralax) 17 gm BID PO Last administered on 09/15/18 08:46; Admin Dose 17 GM; Start 09/13/18 at 21:00 Bisacodyl (Dulcolax) 10 mg DAILY PRN PO CONSTIPATION Last administered on 09/13/18 16:54; Admin Dose 10 MG; Start 09/13/18 at 16:30 Ketorolac Tromethamine (Toradol) 30 mg Q6H PRN IV PAIN LEVEL 1-3 Last administered on 09/14/18 12:04; Admin Dose 30 MG; Start 09/14/18 at 10:00; Stop 09/16/18 at 10:00 Famotidine (Pepcid) 20 mg BID PO Last administered on 09/15/18 08:44; Admin Dose 20 MG; Start 09/14/18 at 21:00 Sodium Chloride 1,000 ml @ 60 mls/hr [id number] IV Last administered on 09/15/18at 09:20; Admin Dose 60 MLS/HR; Start 09/15/18 at 09:30 Atenolol (Tenormin) 50 mg BID PO ; Start 09/15/18 at 21:00 LAUREN ZHONG NP Sep 15, 2018 11:05
[2018-09-15] MEDS ORDERED: IOHEXOL 300MG/ML 150 ML BTL ONE (12:21)
[2018-09-15] MEDS ORDERED: SOD CHLORIDE 0.9% 100 ML ONE (12:21)
[2018-09-15] MEDS: BISACODYL (EC) 5 MG TAB PO PRN (13:03)
[2018-09-15] MEDS: KETOROLAC 30 MG INJ IV PRN (13:10)
[2018-09-15 15:26] VITALS: BP 121/79; PULSE 82; RESP 18
[2018-09-15 19:53] VITALS: BP 153/70; PULSE 81; RESP 17
[2018-09-15] MEDS: ATORVASTATIN 40 MG TAB PO SCH (21:37)
[2018-09-15] MEDS: ATENOLOL 50 MG TAB PO SCH (21:38)
[2018-09-16] MEDS: KETOROLAC 30 MG INJ IV PRN (00:53)
[2018-09-16 02:03] VITALS: BP 148/71; PULSE 80; RESP 18
[2018-09-16 06:20] VITALS: BP 130/60; PULSE 76; RESP 16
[2018-09-16] MEDS: HYDROCHLOROTHIAZIDE 25 MG TAB PO SCH (06:21)
[2018-09-16] MEDS: SOD CHLORIDE 0.9% 1,000 ML IV SCH ×3 (06:22→22:16)
[2018-09-16 07:19] VITALS: BP 132/74; PULSE 78; RESP 18
[2018-09-16] MEDS: POLYETHYLENE GLYCOL 17 GM PACKET PO SCH ×2 (08:56→21:18)
[2018-09-16] MEDS: DULOXETINE 30 MG CAP DR PO SCH (08:56)
[2018-09-16] MEDS: FAMOTIDINE 20 MG TAB PO SCH ×2 (08:56→21:18)
[2018-09-16] MEDS: CALCIUM/VITAMIN D (500/200) TAB PO SCH (08:56)
[2018-09-16] MEDS: ASPIRIN 81 MG TAB PO SCH (08:56)
[2018-09-16] MEDS: ATENOLOL 50 MG TAB PO SCH ×2 (08:57→21:19)
[2018-09-16] MEDS: LISINOPRIL 20 MG TAB PO SCH (08:57)
[2018-09-16] MEDS: AMLODIPINE 2.5 MG TAB PO SCH (08:57)
[2018-09-16] MEDS: ENOXAPARIN 40 MG/0.4 ML SYG SC SCH (08:58)
--- NOTE | 2018-09-16 10:07 | PN ---
Date/Time of Note Date/Time of Note DATE: 09/16/18 TIME: 10:02 Assessment/Plan VTE Prophylaxis Risk score (from Nsg)>0 risk: 5 SCD applied (from Nsg): Yes Pharmacological prophylaxis: LMWH Lines/Catheters IV Catheter Type (from Nrsg): Peripheral IV Urinary Cath still in place: No Assessment/Plan Hospital Course SUBJECTIVE: Complains of minimal abdominal pain. No bowel movements. No nausea or vomiting. OBJECTIVE: Physical Exam General: Obese, 77 year-old female lying in bed in no apparent distress. HEENT: Normocephalic, atraumatic. Eyes: Anicteric sclerae, conjunctivae clear. ENT: Nasal septum midline, oral mucosa moist. Neck: Short and obese. Respiratory: Bilaterally diminished breath sounds. No use of accessory muscles of respiration. No adventitious breath sounds. Cardiovascular: S1, S2 heard. Sternotomy scar. Regular rate and rhythm. Abdomen: Soft. Bowel sounds positive in al four quadrants. Genitourinary: Deferred. Extremities: No cyanosis, no clubbing, no edema. Peripheral pulses palpable. Neurologic: Cranial nerves II through XII grossly intact. The patient is awake, alert, and oriented. Labs & Vitals per chart ASSESSMENT & PLAN 77-year-old female with comorbidities including CAD status post coronary artery bypass grafting, hypertension, dyslipidemia, osteoporosis, osteoarthritis, and obesity who had an unwitnessed fall at home with imaging studies showing mild compression fracture of the superior endplate of T12 vertebral body, who was admitted to inpatient setting for further treatment and evaluation. 1. Acute T12 vertebral body fracture. Continue pain control. Physical therapy follwoing. 2. Status post fall. Etiology unclear. Brain CT scan negative for any stroke. Physical therapy evaluation. Fall precautions. 3. Hypertension. Continue antihypertensives. 4. Abdominal pain with KUB suggesting adynamic ileus CT scan also suggesting the same. The patient is n.p.o from 09/15/2018. General surgery following. 5. CAD, status post coronary artery bypass grafting. Continue aspirin. Continue beta-blockers and FAN inhibitors. 6. Dyslipidemia. Continue statins. 7. Osteoporosis. Continue calcium and vitamin D supplements. 8. Obesity. BMI more than 38 kg/m. 9. Fluids, electrolytes, and nutrition. N.p.o. except for medications. 10. DVT prophylaxis. Subcutaneous Lovenox. 11. Plan. Continue pain control. Keep the patient n.p.o. Await further surgical recommendations. The patient was seen in collaboration with Dr. Serrano. Result Diagram: 09/16/180 09/16/180 Results 24hrs Laboratory Tests Test 09/16/18 04:40 White Blood Count 9.3 Red Blood Count 4.54 Hemoglobin 12.7 Hematocrit 39.7 Mean Corpuscular Volume 87.4 Mean Corpuscular Hemoglobin 28.0 L Mean Corpuscular Hemoglobin Concent 32.0 Red Cell Distribution Width 12.8 Platelet Count 259 Mean Platelet Volume 8.8 Immature Granulocytes % 0.500 H Neutrophils % 61.0 Lymphocytes % 27.0 Monocytes % 10.2 Eosinophils % 1.0 Basophils % 0.3 Nucleated Red Blood Cells % 0.0 Immature Granulocytes # 0.050 H Neutrophils # 5.7 Lymphocytes # 2.5 Monocytes # 1.0 H Eosinophils # 0.1 Basophils # 0.0 Nucleated Red Blood Cells # 0.0 Sodium Level 138 Potassium Level 3.9 Chloride Level 97 Carbon Dioxide Level 32 H Anion Gap 9 Blood Urea Nitrogen 19 Creatinine 0.75 Est Glomerular Filtrat Rate mL/min Glucose Level 109 Calcium Level 9.6 Phosphorus Level 3.9 Magnesium Level 2.1 Total Bilirubin 0.9 Direct Bilirubin 0.00 Indirect Bilirubin 0.9 Aspartate Amino Transf (AST/SGOT) 24 Alanine Aminotransferase (ALT/SGPT) 22 Alkaline Phosphatase 57 Total Protein 6.9 # Albumin 3.9 # Globulin 3.00 Albumin/Globulin Ratio 1.30 Exam/Review of Systems Exam Vitals Vital Signs Date Temp Pulse Resp B/P (MAP) Pulse Ox O2 O2 Flow FiO2 Time Delivery Rate 09/16/18 98.3 78 18 132/74 95 Room Air 07:19 (93) Intake and Output 09/15/18 09/15/18 09/16/18 1515:00 23:00 07:00 IntakeIntake Total 420 ml 820 ml BalanceBalance 420 ml 820 ml Results Results 24hrs Laboratory Tests Test 09/16/18 04:40 White Blood Count 9.3 Red Blood Count 4.54 Hemoglobin 12.7 Hematocrit 39.7 Mean Corpuscular Volume 87.4 Mean Corpuscular Hemoglobin 28.0 L Mean Corpuscular Hemoglobin Concent 32.0 Red Cell Distribution Width 12.8 Platelet Count 259 Mean Platelet Volume 8.8 Immature Granulocytes % 0.500 H Neutrophils % 61.0 Lymphocytes % 27.0 Monocytes % 10.2 Eosinophils % 1.0 Basophils % 0.3 Nucleated Red Blood Cells % 0.0 Immature Granulocytes # 0.050 H Neutrophils # 5.7 Lymphocytes # 2.5 Monocytes # 1.0 H Eosinophils # 0.1 Basophils # 0.0 Nucleated Red Blood Cells # 0.0 Sodium Level 138 Potassium Level 3.9 Chloride Level 97 Carbon Dioxide Level 32 H Anion Gap 9 Blood Urea Nitrogen 19 Creatinine 0.75 Est Glomerular Filtrat Rate mL/min Glucose Level 109 Calcium Level 9.6 Phosphorus Level 3.9 Magnesium Level 2.1 Total Bilirubin 0.9 Direct Bilirubin 0.00 Indirect Bilirubin 0.9 Aspartate Amino Transf (AST/SGOT) 24 Alanine Aminotransferase (ALT/SGPT) 22 Alkaline Phosphatase 57 Total Protein 6.9 # Albumin 3.9 # Globulin 3.00 Albumin/Globulin Ratio 1.30 Medications Medication Current Medications IV Flush (NS 3 ml) 3 ml PER PROTOCOL IV ; Start 09/13/18 at 10:00 Ondansetron HCl (Zofran Inj) 4 mg Q6H PRN IV NAUSEA/VOMITING Last administered on 09/15/18 06:38; Admin Dose 4 MG; Start 09/13/18 at 10:00 Acetaminophen (Tylenol Tab) 650 mg Q6H PRN PO .PAIN 1-3 OR TEMP Last administered on 09/14/18 22:25; Admin Dose 650 MG; Start 09/13/18 at 10:00 Acetaminophen/ Hydrocodone Bitart ([place] (5/325)) 1 tab Q6H PRN PO .MOD PAIN 4- 6 Last administered on 09/13/18 16:54; Admin Dose 1 TAB; Start 09/13/18 at 10:00 Morphine Sulfate (morphine) 2 mg Q4H PRN IV .SEVERE PAIN 7-10 Last administered on 09/15/18 06:37; Admin Dose 2 MG; Start 09/13/18 at 10:00 Enoxaparin Sodium (Lovenox) 40 mg DAILY SC Last administered on 09/16/18 08:58; Admin Dose 40 MG; Start 09/13/18 at 10:00 Aspirin (Aspirin) 81 mg DAILY PO Last administered on 09/16/18 08:56; Admin Dose 81 MG; Start 09/13/18 at 10:00 Atorvastatin Calcium (Lipitor) 40 mg QHS PO Last administered on 09/15/18 21:37; Admin Dose 40 MG; Start 09/13/18 at 21:00 Calcium/Vitamin D ([place]/ Vit-D (500/200)) 1 tab DAILY PO Last administered on 09/16/18 08:56; Admin Dose 1 TAB; Start 09/13/18 at 10:00 Hydrochlorothiazide (Hydrochlorothiazide) 25 mg DAILY@0600 PO Last administered on 09/16/18 06:21; Admin Dose 25 MG; Start 09/13/18 at 10:00 Amlodipine Besylate (Norvasc) 2.5 mg DAILY PO Last administered on 09/16/18 08:57; Admin Dose 2.5 MG; Start 09/13/18 at 10:00 Lisinopril (Zestril) 20 mg DAILY PO Last administered on 09/16/18 08:57; Admin Dose 20 MG; Start 09/13/18 at 10:00 Hydralazine HCl (Apresoline) 10 mg Q6H PRN IV SbP>160 Last administered on 16:26; Admin Dose 10 MG; Start 09/13/18 at 11:00 Duloxetine HCl (Cymbalta) 60 mg DAILY PO Last administered on 09/16/18 08:56; Admin Dose 60 MG; Start 09/13/18 at 11:00 Polyethylene Glycol (Miralax) 17 gm BID PO Last administered on 09/16/18 08:56; Admin Dose 17 GM; Start 09/13/18 at 21:00 Bisacodyl (Dulcolax) 10 mg DAILY PRN PO CONSTIPATION Last administered on 09/15/18 13:03; Admin Dose 10 MG; Start 09/13/18 at 16:30 Famotidine (Pepcid) 20 mg BID PO Last administered on 09/16/18 08:56; Admin Dose 20 MG; Start 09/14/18 at 21:00 Sodium Chloride 1,000 ml @ 60 mls/hr [id number] IV Last administered on 09/16/18 06:22; Admin Dose 60 MLS/HR; Start 09/15/18 at 09:30 Atenolol (Tenormin) 50 mg BID PO Last administered on 09/16/18at 08:57; Admin Dose 50 MG; Start 09/15/18 at 21:00 Simethicone (Mylicon) 160 mg Q6 PO Last administered on 09/16/18at 06:16; Admin Dose 160 MG; Start 09/15/18 at 12:00 DENG AMEZCUA NP Sep 16, 2018 10:07
[2018-09-16] MEDS: HYDROCODONE/APAP (5/325) TAB PO PRN (12:12)
[2018-09-16 15:37] VITALS: BP 147/76; PULSE 77; RESP 18
--- NOTE | 2018-09-16 16:59 | PN ---
Date/Time of Note Date/Time of Note DATE: 09/16/18 TIME: 16:56 Assessment/Plan Lines/Catheters IV Catheter Type (from Nrs): Peripheral IV [place] in Place (from Nrs): No Assessment/Plan Chief Complaint/Hosp Course 1. Abdominal pain with concern for adynamic ileus; KUB with noted gas throughout small bowel and colon without evidence of obstruction, however + fla tus and active bowel sounds; abdominal pain much improved, nausea resolved; no BM; CT noted -Okay to trial clears -Continue simethicone -Encourage ambulation -Limit narcotic medications -GI consult for chronic constipation 2. T12 vertebral body fracture status post fall: -Pain control preferably with nonnarcotics -Fall precautions -Continue physical therapy 3. Hypertension, CAD history -Medical management -Highly encouraged weight loss 4.Obesity BMI: 39 -diet and exercise optimization -encourage weight loss 5. Osteoarthritis, Osteoporosis: -Medical management Thank you. Patient seen and examined in collaboration with Dr. Isac Figueredo. Subjective 24 Hr Interval Summary Feels much better. Abdominal pain much improved. Continues to have flatus. No bowel movement as of yet. No fevers, chills, sob, congested cough, cp, palpitations, ramirez, dizziness, nausea, vomiting, diarrhea, dysuria. CT noted. Exam/Review of Systems Vital Signs Vitals Vital Signs Date Temp Pulse Resp B/P (MAP) Pulse Ox O2 O2 Flow FiO2 Time Delivery Rate 09/16/18 98.3 77 18 147/76 99 Room Air 15:37 (99) Intake and Output 09/15/18 09/15/18 09/16/18 1414:59 22:59 06:59 IntakeIntake Total 420 ml 820 ml BalanceBalance 420 ml 820 ml Exam Free Text/Dictation Constitutional: alert, oriented, well developed Psych: nl mood/affect, anxiety (Minimal) Head: normocephalic, atraumatic Eyes: nl conjunctiva, nl lids, nl sclera ENMT: nl external ears & nose, nl nasal mucosa & septum, mucosa pink and moist Neck: supple, non-tender; No jvd Respiratory: normal air movement; No congested cough Cardiovascular: regular rate and rhythm, nl pulses; No edema Gastrointestinal: soft, bowel sounds (X4 quads quadrants), nondistended, other (+ Flatus; rectal exam: Good rectal tone, no noted impacted stool); No rebound or guarding, No tender Genitourinary - Female: nl external genitalia Musculoskeletal: nl extremities to inspection, nl gait and stance Extremities: normal pulses Neurological: nl mental status, nl speech; No nl strength (Generalized weakness) Skin: nl turgor; No rash or lesions Lymph: nl lymph nodes Results Result Diagram: 09/16/18 0440 09/16/18 0440 LAUREN ZHONG NP Sep 16, 2018 16:59
[2018-09-16] MEDS ORDERED: KETOROLAC 30 MG INJ IV STA (18:29)
[2018-09-16 19:56] VITALS: BP 166/72; PULSE 71; RESP 20
[2018-09-16] MEDS: ATORVASTATIN 40 MG TAB PO SCH (21:18)
[2018-09-17 02:52] VITALS: BP 156/70; PULSE 77; RESP 17
[2018-09-17] MEDS: HYDROCODONE/APAP (5/325) TAB PO PRN ×2 (03:46→22:10)
[2018-09-17] MEDS: HYDROCHLOROTHIAZIDE 25 MG TAB PO SCH (06:13)
[2018-09-17 07:19] VITALS: BP 138/78; PULSE 72; RESP 18
[2018-09-17] MEDS: ONDANSETRON 4 MG INJ IV PRN (08:43)
[2018-09-17] MEDS: POLYETHYLENE GLYCOL 17 GM PACKET PO SCH ×2 (08:44→21:00)
[2018-09-17] MEDS: ASPIRIN 81 MG TAB PO SCH (08:44)
[2018-09-17] MEDS: FAMOTIDINE 20 MG TAB PO SCH ×2 (08:44→21:25)
[2018-09-17] MEDS: BISACODYL (EC) 5 MG TAB PO PRN (08:44)
[2018-09-17] MEDS: CALCIUM/VITAMIN D (500/200) TAB PO SCH (08:44)
[2018-09-17] MEDS: morphine 2 MG INJ IV PRN (08:44)
[2018-09-17] MEDS: DULOXETINE 30 MG CAP DR PO SCH (08:44)
[2018-09-17] MEDS: AMLODIPINE 2.5 MG TAB PO SCH (08:48)
[2018-09-17] MEDS: ATENOLOL 50 MG TAB PO SCH ×2 (08:48→21:25)
[2018-09-17] MEDS: LISINOPRIL 20 MG TAB PO SCH (08:48)
[2018-09-17] MEDS: ENOXAPARIN 40 MG/0.4 ML SYG SC SCH (08:51)
--- NOTE | 2018-09-17 09:14 | PN ---
Date/Time of Note Date/Time of Note DATE: 09/17/18 TIME: 09:12 Assessment/Plan VTE Prophylaxis Risk score (from Nsg)>0 risk: 4 SCD applied (from Nsg): Yes Pharmacological prophylaxis: LMWH Lines/Catheters IV Catheter Type (from Nrsg): Peripheral IV Urinary Cath still in place: No Assessment/Plan Hospital Course SUBJECTIVE: No bowel movements. Continues to have abdominal pain. OBJECTIVE: Physical Exam General: Obese, 77 year-old female lying in bed in no apparent distress. HEENT: Normocephalic, atraumatic. Eyes: Anicteric sclerae, conjunctivae clear. ENT: Nasal septum midline, oral mucosa moist. Neck: Short and obese. Respiratory: Bilaterally diminished breath sounds. No use of accessory muscles of respiration. No adventitious breath sounds. Cardiovascular: S1, S2 heard. Sternotomy scar. Regular rate and rhythm. Abdomen: Soft. Bowel sounds positive in al four quadrants. Genitourinary: Deferred. Extremities: No cyanosis, no clubbing, no edema. Peripheral pulses palpable. Neurologic: Cranial nerves II through XII grossly intact. The patient is awake, alert, and oriented. Labs & Vitals per chart ASSESSMENT & PLAN 77-year-old female with comorbidities including CAD status post coronary artery bypass grafting, hypertension, dyslipidemia, osteoporosis, osteoarthritis, and obesity who had an unwitnessed fall at home with imaging studies showing mild compression fracture of the superior endplate of T12 vertebral body, who was admitted to inpatient setting for further treatment and evaluation. 1. Acute T12 vertebral body fracture. Continue pain control. Physical therapy following. 2. Status post fall. Etiology unclear. Brain CT scan negative for any stroke. Physical therapy evaluation. Fall precautions. 3. Hypertension. Continue antihypertensives. 4. Abdominal pain with KUB suggesting adynamic ileus CT scan also suggesting the same. The patient is n.p.o from 09/15/2018. Started clears on 09/16/2018. General surgery following. Start prokinetics. Obtain gastroenterology consult. 5. CAD, status post coronary artery bypass grafting. Continue aspirin. Continue beta-blockers and FAN inhibitors. 6. Dyslipidemia. Continue statins. 7. Osteoporosis. Continue calcium and vitamin D supplements. 8. Obesity. BMI more than 38 kg/m. 9. Fluids, electrolytes, and nutrition. N.p.o. except for medications. 10. DVT prophylaxis. Subcutaneous Lovenox. 11. Plan. Continue pain control. Await further surgical recommendations. Obtain gastroenterology evaluation. The patient was seen in collaboration with Dr. Serrano. Result Diagram: 09/17/18 0432 09/17/18 0431 Results 24hrs Laboratory Tests Test 09/17/18 04:31 09/17/18 04:32 Sodium Level 136 Potassium Level 3.6 Chloride Level 99 Carbon Dioxide Level 32 H Anion Gap 5 Blood Urea Nitrogen 14 Creatinine 0.66 Est Glomerular Filtrat Rate mL/min Glucose Level 108 Calcium Level 9.0 Phosphorus Level 3.4 Magnesium Level 2.0 Total Bilirubin 0.7 Direct Bilirubin 0.00 Indirect Bilirubin 0.7 Aspartate Amino Transf (AST/SGOT) 21 Alanine Aminotransferase (ALT/SGPT) 23 Alkaline Phosphatase 50 Total Protein 6.6 Albumin 3.6 Globulin 3.00 Albumin/Globulin Ratio 1.20 White Blood Count 8.3 Red Blood Count 4.22 Hemoglobin 11.8 L Hematocrit 37.1 Mean Corpuscular Volume 87.9 Mean Corpuscular Hemoglobin 28.0 L Mean Corpuscular Hemoglobin Concent 31.8 L Red Cell Distribution Width 12.7 Platelet Count 255 Mean Platelet Volume 8.8 Immature Granulocytes % 0.700 H Neutrophils % 58.9 Lymphocytes % 26.4 Monocytes % 12.0 H Eosinophils % 1.8 Basophils % 0.2 Nucleated Red Blood Cells % 0.0 Immature Granulocytes # 0.060 H Neutrophils # 4.9 Lymphocytes # 2.2 Monocytes # 1.0 H Eosinophils # 0.2 Basophils # 0.0 Nucleated Red Blood Cells # 0.0 Exam/Review of Systems Exam Vitals Vital Signs Date Temp Pulse Resp B/P (MAP) Pulse Ox O2 O2 Flow FiO2 Time Delivery Rate 09/17/18 98.1 72 18 138/78 96 07:19 (98) 09/17/18 Nasal 02:52 Cannula Intake and Output 09/16/18 09/16/18 09/17/18 1515:00 23:00 07:00 IntakeIntake Total 1710 ml 500 ml BalanceBalance 1710 ml 500 ml Results Results 24hrs Laboratory Tests Test 09/17/18 04:31 09/17/18 04:32 Sodium Level 136 Potassium Level 3.6 Chloride Level 99 Carbon Dioxide Level 32 H Anion Gap 5 Blood Urea Nitrogen 14 Creatinine 0.66 Est Glomerular Filtrat Rate mL/min Glucose Level 108 Calcium Level 9.0 Phosphorus Level 3.4 Magnesium Level 2.0 Total Bilirubin 0.7 Direct Bilirubin 0.00 Indirect Bilirubin 0.7 Aspartate Amino Transf (AST/SGOT) 21 Alanine Aminotransferase (ALT/SGPT) 23 Alkaline Phosphatase 50 Total Protein 6.6 Albumin 3.6 Globulin 3.00 Albumin/Globulin Ratio 1.20 White Blood Count 8.3 Red Blood Count 4.22 Hemoglobin 11.8 L Hematocrit 37.1 Mean Corpuscular Volume 87.9 Mean Corpuscular Hemoglobin 28.0 L Mean Corpuscular Hemoglobin Concent 31.8 L Red Cell Distribution Width 12.7 Platelet Count 255 Mean Platelet Volume 8.8 Immature Granulocytes % 0.700 H Neutrophils % 58.9 Lymphocytes % 26.4 Monocytes % 12.0 H Eosinophils % 1.8 Basophils % 0.2 Nucleated Red Blood Cells % 0.0 Immature Granulocytes # 0.060 H Neutrophils # 4.9 Lymphocytes # 2.2 Monocytes # 1.0 H Eosinophils # 0.2 Basophils # 0.0 Nucleated Red Blood Cells # 0.0 Medications Medication Current Medications IV Flush (NS 3 ml) 3 ml PER PROTOCOL IV ; Start 09/13/18 at 10:00 Ondansetron HCl (Zofran Inj) 4 mg Q6H PRN IV NAUSEA/VOMITING Last administered on 09/17/18 08:43; Admin Dose 4 MG; Start 09/13/18 at 10:00 Acetaminophen (Tylenol Tab) 650 mg Q6H PRN PO .PAIN 1-3 OR TEMP Last administered on 09/14/18 22:25; Admin Dose 650 MG; Start 09/13/18 at 10:00 Acetaminophen/ Hydrocodone Bitart ([place] (5/325)) 1 tab Q6H PRN PO .MOD PAIN 4- 6 Last administered on 09/17/18 03:46; Admin Dose 1 TAB; Start 09/13/18 at 10:00 Morphine Sulfate (morphine) 2 mg Q4H PRN IV .SEVERE PAIN 7-10 Last administered on 09/17/18 08:44; Admin Dose 2 MG; Start 09/13/18 at 10:00 Enoxaparin Sodium (Lovenox) 40 mg DAILY SC Last administered on 09/17/18 08:51; Admin Dose 40 MG; Start 09/13/18 at 10:00 Aspirin (Aspirin) 81 mg DAILY PO Last administered on 09/17/18 08:44; Admin Dose 81 MG; Start 09/13/18 at 10:00 Atorvastatin Calcium (Lipitor) 40 mg QHS PO Last administered on 09/16/18 21:18; Admin Dose 40 MG; Start 09/13/18 at 21:00 Calcium/Vitamin D (Oyster Shell/ Vit-D (500/200)) 1 tab DAILY PO Last administered on 09/17/18 08:44; Admin Dose 1 TAB; Start 09/13/18 at 10:00 Hydrochlorothiazide (Hydrochlorothiazide) 25 mg DAILY@0600 PO Last administered on 09/17/18 06:13; Admin Dose 25 MG; Start 09/13/18 at 10:00 Amlodipine Besylate (Norvasc) 2.5 mg DAILY PO Last administered on 09/17/18 08:48; Admin Dose 2.5 MG; Start 09/13/18 at 10:00 Lisinopril (Zestril) 20 mg DAILY PO Last administered on 09/17/18 08:48; Admin Dose 20 MG; Start 09/13/18 at 10:00 Hydralazine HCl (Apresoline) 10 mg Q6H PRN IV SbP>160 Last administered on 09/14/18 16:26; Admin Dose 10 MG; Start 09/13/18 at 11:00 Duloxetine HCl (Cymbalta) 60 mg DAILY PO Last administered on 09/17/18 08:44; Admin Dose 60 MG; Start 09/13/18 at 11:00 Polyethylene Glycol (Miralax) 17 gm BID PO Last administered on 09/17/18 08:44; Admin Dose 17 GM; Start 09/13/18 at 21:00 Bisacodyl (Dulcolax) 10 mg DAILY PRN PO CONSTIPATION Last administered on 09/17/18 08:44; Admin Dose 10 MG; Start 09/13/18 at 16:30 Famotidine (Pepcid) 20 mg BID PO Last administered on 09/17/18 08:44; Admin Dose 20 MG; Start 09/14/18 at 21:00 Sodium Chloride 1,000 ml @ 60 mls/hr [id number] IV Last administered on 7/25/19at 22:16; Admin Dose 60 MLS/HR; Start 09/15/18 at 09:30 Atenolol (Tenormin) 50 mg BID PO Last administered on 09/17/18at 08:48; Admin Dose 50 MG; Start 09/15/18 at 21:00 Simethicone (Mylicon) 160 mg Q6 PO Last administered on 09/17/18at 06:12; Admin Dose 160 MG; Start 09/15/18 at 12:00 DENG AMEZCUA NP Sep 17, 2018 09:14
[2018-09-17] MEDS: KETOROLAC 30 MG INJ IV PRN ×2 (11:01→18:28)
[2018-09-17] MEDS: METOCLOPRAMIDE 10 MG INJ IV SCH ×2 (11:53→17:18)
--- NOTE | 2018-09-17 12:16 | CONS ---
Assessment/Plan Assessment/Plan Assessment/Plan (Daily) Assessment: Constipation chronic on acute Ileus CAD status post coronary artery bypass grafting Hypertension Dyslipidemia Osteoporosis Osteoarthritis Obesity Plan: Start Amitiza twice daily Magnesium citrate 300 mL Lactulose 60 mL every 2 hours x4 Continue clear liquid diet Patient seen in collaboration with Dr. Melton Consultation Date/Type/Reason Admit Date/Time Date of Consultation: Sep 17, 2018 Type of Consult GI Reason for Consultation Constipation Date/Time of Note DATE: 09/17/18 TIME: 12:08 Hx of Present Illness This is a 77-year-old female with a history of coronary artery disease status post bypass, hypertension, hyperlipidemia, osteoporosis, osteoarthritis and obesity who was admitted after suffering a fall. GI was consulted for consti pation management. Patient states she had no bowel movements for the past 6 days. She is currently on clear liquid diet. Imaging shows hypodynamic ileus. Patient states she had colonoscopy done 3 years ago. No history of EGD. Currently patient denies nausea, vomiting, hematemesis, hematochezia or diarrhea. The plan is to order Amitiza twice daily for management of chronic constipation. For acute constipation will order lactulose 60 mg q. 2 hours x 4 and magnesium citrate 300 mL. Continue clear liquid diet. Gastrointestinal: no complaints (See HPI) Past Medical History Medical History: coronary artery disease, high cholesterol, hypertension Home Meds Reported Medications Lisinopril* (Lisinopril*) 40 Mg Tablet, 1 TAB ORAL DAILY 09/13/18 Hydrochlorothiazide* (Hydrochlorothiazide*) 25 Mg Tab, 25 MG PO DAILY, #30 TAB 09/13/18 Duloxetine Hcl* (Duloxetine Hcl*) 60 Mg Capsule., 1 CAP ORAL DAILY 09/13/18 Clonidine Hcl* (Clonidine Hcl*) 0.1 Mg Tab, 0.1 MG PO Q8 PRN for q8, TAB FOR HTN 09/13/18 Calcium Carbonate/Vitamin D3 (Oyster Shell Calcium + D Cplt) 1 Each Tablet, 1 TAB PO DAILY, TAB 09/13/18 Atorvastatin* (Atorvastatin*) 40 Mg Tablet, 40 MG PO QHS, #30 TAB 09/13/18 Atenolol* (Atenolol*) 100 Mg Tablet, 1 TAB ORAL DAILY 09/13/18 Aspirin* (Aspirin* Chew) 81 Mg Tab.chew, 81 MG PO DAILY, TAB.CHEW 09/13/18 Amlodipine Besylate* (Amlodipine Besylate*) 5 Mg Tablet, 1 TAB ORAL DAILY 09/13/18 Alendronate Sodium* (Fosamax*) 70 Mg Tablet, 1 TAB ORAL weekly on Thursday09/13/18 Discontinued Reported Medications Celecoxib* (Celebrex*) 100 Mg Capsule 06/01/09 Clonidine Hcl (Clonidine Hcl) 0.1 Mg Tablet 06/01/09 Escitalopram Oxalate* (Lexapro*) 10 Mg Tablet 06/01/09 Medications Current Medications IV Flush (NS 3 ml) 3 ml PER PROTOCOL IV ; Start 09/13/18 at 10:00 Ondansetron HCl (Zofran Inj) 4 mg Q6H PRN IV NAUSEA/VOMITING Last administered on 09/17/18 08:43; Admin Dose 4 MG; Start 09/13/18 at 10:00 Acetaminophen (Tylenol Tab) 650 mg Q6H PRN PO .PAIN 1-3 OR TEMP Last administered on 09/14/18 22:25; Admin Dose 650 MG; Start 09/13/18 at 10:00 Acetaminophen/ Hydrocodone Bitart ([place] (5/325)) 1 tab Q6H PRN PO .MOD PAIN 4- 6 Last administered on 09/17/18 03:46; Admin Dose 1 TAB; Start 09/13/18 at 10:0 0 Morphine Sulfate (morphine) 2 mg Q4H PRN IV .SEVERE PAIN 7-10 Last administered on 09/17/18 08:44; Admin Dose 2 MG; Start 09/13/18 at 10:00 Enoxaparin Sodium (Lovenox) 40 mg DAILY SC Last administered on 09/17/18 08:51; Admin Dose 40 MG; Start 09/13/18 at 10:00 Aspirin (Aspirin) 81 mg DAILY PO Last administered on 09/17/18 08:44; Admin Dose 81 MG; Start 09/13/18 at 10:00 Atorvastatin Calcium (Lipitor) 40 mg QHS PO Last administered on 09/16/18 21:18; Admin Dose 40 MG; Start 09/13/18 at 21:00 Calcium/Vitamin D (Oyster Shell/ Vit-D (500/200)) 1 tab DAILY PO Last administered on 09/17/18 08:44; Admin Dose 1 TAB; Start 09/13/18 at 10:00 Hydrochlorothiazide (Hydrochlorothiazide) 25 mg DAILY@0600 PO Last administered on 09/17/18 06:13; Admin Dose 25 MG; Start 09/13/18 at 10:00 Amlodipine Besylate (Norvasc) 2.5 mg DAILY PO Last administered on 09/17/18 08:48; Admin Dose 2.5 MG; Start 09/13/18 at 10:00 Lisinopril (Zestril) 20 mg DAILY PO Last administered on 09/17/18 08:48; Admin Dose 20 MG; Start 09/13/18 at 10:00 Hydralazine HCl (Apresoline) 10 mg Q6H PRN IV SbP>160 Last administered on 09/14/18 16:26; Admin Dose 10 MG; Start 09/13/18 at 11:00 Duloxetine HCl (Cymbalta) 60 mg DAILY PO Last administered on 09/17/18 08:44; Admin Dose 60 MG; Start 09/13/18 at 11:00 Polyethylene Glycol (Miralax) 17 gm BID PO Last administered on 09/17/18 08:44; Admin Dose 17 GM; Start 09/13/18 at 21:00 Bisacodyl (Dulcolax) 10 mg DAILY PRN PO CONSTIPATION Last administered on 08/24 08:44; Admin Dose 10 MG; Start 09/13/18 at 16:30 Famotidine (Pepcid) 20 mg BID PO Last administered on 09/17/18 08:44; Admin Dose 20 MG; Start 09/14/18 at 21:00 Sodium Chloride 1,000 ml @ 60 mls/hr [id number] IV Last administered on 09/16/18 22:16; Admin Dose 60 MLS/HR; Start 09/15/18 at 09:30 Atenolol (Tenormin) 50 mg BID PO Last administered on 09/17/18 08:48; Admin Dose 50 MG; Start 09/15/18 at 21:00 Simethicone (Mylicon) 160 mg Q6 PO Last administered on 09/17/18 11:01; Admin Dose 160 MG; Start 09/15/18 at 12:00 Ketorolac Tromethamine (Toradol) 30 mg Q6H PRN IV PAIN LEVEL 1-3 Last administered on 09/17/18at 11:01; Admin Dose 30 MG; Start 09/17/18 at 09:30; Stop 09/20/18 at 09:29 Metoclopramide HCl (Reglan) 5 mg Q6 IV Last administered on 09/17/18at 11:53; Admin Dose 5 MG; Start 09/17/18 at 12:00 Allergies: Coded Allergies: No Known Allergy (Verified Allergy, Unknown, 06/26/06) Social History Alcohol Use: none Smoking Status: Never smoker Drug Use: none Exam/Review of Systems Exam Vitals Vital Signs Date Temp Pulse Resp B/P (MAP) Pulse Ox O2 O2 Flow FiO2 Time Delivery Rate 09/17/18 98.1 72 18 138/78 96 07:19 (98) 09/17/18 Nasal 02:52 Cannula Intake and Output 09/16/18 09/16/18 09/17/18 1515:00 23:00 07:00 IntakeIntake Total 1710 ml 500 ml BalanceBalance 1710 ml 500 ml Exam PHYSICAL EXAMINATION: GENERAL: Well developed, well nourished, obese, alert & oriented x 3, in no acute distress SKIN: No lesions, no stigmata chronic liver disease, no evidence of bleeding diathesis LYMPHATIC: No palpable lymphadenopathy. HEAD: Normocephalic, atraumatic, no tenderness. EYES: Pupils equal reactive to light and accommodation, full extraocular movements, sclera clear, non-icteric, no discharge. EARS/NOSE AND THROAT: Ears normal, nose normal, oropharynx normal, oral membranes well hydrated without lesions. NECK: Supple, no masses, thyroid normal, JVP within normal limits, carotids normal without bruits. CHEST: Inspection within normal limits. CARDIOVASCULAR: Heart: Regular rate and rhythm, no murmurs, gallops or rubs. Peripheral pulses present within normal limits, no cyanosis, clubbing or edemas. No pulsatile abdominal mass RESPIRATORY: Lungs clear to auscultation and percussion, no wheezing, no rubs GASTROINTESTINAL AND LIVER: Abdomen: Soft, non tenderness, mildly distended, no hernias, no masses, no organomegaly, no ascites, no guarding, no rebound tenderness, normoactive bowel sounds. Rectal: Deferred. GENITOURINARY: Female genitalia within normal limits. EXTREMITIES: No cyanosis, clubbing or edema. Results Result Diagram: 09/17/18 0432 09/17/18 0431 Results 24hrs Laboratory Tests Test 09/17/18 04:31 09/17/18 04:32 Sodium Level 136 Potassium Level 3.6 Chloride Level 99 Carbon Dioxide Level 32 H Anion Gap 5 Blood Urea Nitrogen 14 Creatinine 0.66 Est Glomerular Filtrat Rate mL/min Glucose Level 108 Calcium Level 9.0 Phosphorus Level 3.4 Magnesium Level 2.0 Total Bilirubin 0.7 Direct Bilirubin 0.00 Indirect Bilirubin 0.7 Aspartate Amino Transf (AST/SGOT) 21 Alanine Aminotransferase (ALT/SGPT) 23 Alkaline Phosphatase 50 Total Protein 6.6 Albumin 3.6 Globulin 3.00 Albumin/Globulin Ratio 1.20 White Blood Count 8.3 Red Blood Count 4.22 Hemoglobin 11.8 L Hematocrit 37.1 Mean Corpuscular Volume 87.9 Mean Corpuscular Hemoglobin 28.0 L Mean Corpuscular Hemoglobin Concent 31.8 L Red Cell Distribution Width 12.7 Platelet Count 255 Mean Platelet Volume 8.8 Immature Granulocytes % 0.700 H Neutrophils % 58.9 Lymphocytes % 26.4 Monocytes % 12.0 H Eosinophils % 1.8 Basophils % 0.2 Nucleated Red Blood Cells % 0.0 Immature Granulocytes # 0.060 H Neutrophils # 4.9 Lymphocytes # 2.2 Monocytes # 1.0 H Eosinophils # 0.2 Basophils # 0.0 Nucleated Red Blood Cells # 0.0 Medications Medication Current Medications IV Flush (NS 3 ml) 3 ml PER PROTOCOL IV ; Start 09/13/18 at 10:00 Ondansetron HCl (Zofran Inj) 4 mg Q6H PRN IV NAUSEA/VOMITING Last administered on 09/17/18at 08:43; Admin Dose 4 MG; Start 09/13/18 at 10:00 Acetaminophen (Tylenol Tab) 650 mg Q6H PRN PO .PAIN 1-3 OR TEMP Last administered on 09/14/18at 22:25; Admin Dose 650 MG; Start 09/13/18 at 10:00 Acetaminophen/ Hydrocodone Bitart ([place] (5/325)) 1 tab Q6H PRN PO .MOD PAIN 4- 6 Last administered on 09/17/18at 03:46; Admin Dose 1 TAB; Start 09/13/18 at 10:00 Morphine Sulfate (morphine) 2 mg Q4H PRN IV .SEVERE PAIN 7-10 Last administered on 09/17/18 08:44; Admin Dose 2 MG; Start 09/13/18 at 10:00 Enoxaparin Sodium (Lovenox) 40 mg DAILY SC Last administered on 09/17/18 08:51; Admin Dose 40 MG; Start 09/13/18 at 10:00 Aspirin (Aspirin) 81 mg DAILY PO Last administered on 09/17/18 08:44; Admin Dose 81 MG; Start 09/13/18 at 10:00 Atorvastatin Calcium (Lipitor) 40 mg QHS PO Last administered on 09/16/18 21:18; Admin Dose 40 MG; Start 09/13/18 at 21:00 Calcium/Vitamin D (Oyster Shell/ Vit-D (500/200)) 1 tab DAILY PO Last administered on 09/17/18 08:44; Admin Dose 1 TAB; Start 09/13/18 at 10:00 Hydrochlorothiazide (Hydrochlorothiazide) 25 mg DAILY@0600 PO Last administered on 09/17/18 06:13; Admin Dose 25 MG; Start 09/13/18 at 10:00 Amlodipine Besylate (Norvasc) 2.5 mg DAILY PO Last administered on 09/17/18 08:48; Admin Dose 2.5 MG; Start 09/13/18 at 10:00 Lisinopril (Zestril) 20 mg DAILY PO Last administered on 09/17/18 08:48; Admin Dose 20 MG; Start 09/13/18 at 10:00 Hydralazine HCl (Apresoline) 10 mg Q6H PRN IV SbP>160 Last administered on 09/14/18 16:26; Admin Dose 10 MG; Start 09/13/18 at 11:00 Duloxetine HCl (Cymbalta) 60 mg DAILY PO Last administered on 09/17/18 08:44; Admin Dose 60 MG; Start 09/13/18 at 11:00 Polyethylene Glycol (Miralax) 17 gm BID PO Last administered on 09/17/18 08:44; Admin Dose 17 GM; Start 09/13/18 at 21:00 Bisacodyl (Dulcolax) 10 mg DAILY PRN PO CONSTIPATION Last administered on 09/17/18 08:44; Admin Dose 10 MG; Start 09/13/18 at 16:30 Famotidine (Pepcid) 20 mg BID PO Last administered on 09/17/18 08:44; Admin Dose 20 MG; Start 09/14/18 at 21:00 Sodium Chloride 1,000 ml @ 60 mls/hr [id number] IV Last administered on 09/16/18 22:16; Admin Dose 60 MLS/HR; Start 09/15/18 at 09:30 Atenolol (Tenormin) 50 mg BID PO Last administered on 09/17/18 08:48; Admin Dose 50 MG; Start 09/15/18 at 21:00 Simethicone (Mylicon) 160 mg Q6 PO Last administered on 09/17/18 11:01; Admin Dose 160 MG; Start 09/15/18 at 12:00 Ketorolac Tromethamine (Toradol) 30 mg Q6H PRN IV PAIN LEVEL 1-3 Last administered on 09/17/18 11:01; Admin Dose 30 MG; Start 09/17/18 at 09:30; Stop 09/20/18 at 09:29 Metoclopramide HCl (Reglan) 5 mg Q6 IV Last administered on 09/17/18 11:53; Admin Dose 5 MG; Start 09/17/18 at 12:00 SAVANNA JONES NP Sep 17, 2018 12:16
[2018-09-17] MEDS ORDERED: MAGNESIUM CITRATE 300 ML BTL PO ONE (12:30)
[2018-09-17] MEDS: LACTULOSE 30ML CUP PO SCH ×4 (13:10→19:00)
--- NOTE | 2018-09-17 13:45 | PN ---
Date/Time of Note Date/Time of Note DATE: 09/17/18 TIME: 13:43 Assessment/Plan Lines/Catheters IV Catheter Type (from Nrs): Peripheral IV [place] in Place (from Nrs): No Assessment/Plan Chief Complaint/Hosp Course 1. Abdominal pain with concern for adynamic ileus; KUB with noted gas throughout small bowel and colon without evidence of obstruction, however + fla tus and active bowel sounds; abdominal pain much improved, nausea resolved; no BM; CT noted -diet and bowel regimen per GI -Continue simethicone -Encourage ambulation -Limit narcotic medications 2. T12 vertebral body fracture status post fall: -Pain control preferably with nonnarcotics -Fall precautions -Continue physical therapy 3. Hypertension, CAD history -Medical management -Highly encouraged weight loss 4.Obesity BMI: 39 -diet and exercise optimization -encourage weight loss 5. Osteoarthritis, Osteoporosis: -Medical management Thank you. Patient seen and examined in collaboration with Dr. Isac Figueredo. Subjective 24 Hr Interval Summary Continues to have flatus but no bm. Some abdominal pain and back pain. Vomiting. No fevers, chills, sob, congested cough, cp, palpitations, ramirez, dizziness, d/dysuria. Exam/Review of Systems Vital Signs Vitals Vital Signs Date Temp Pulse Resp B/P (MAP) Pulse Ox O2 O2 Flow FiO2 Time Delivery Rate 09/17/18 98.1 72 18 138/78 96 07:19 (98) 09/17/18 Nasal 02:52 Cannula Intake and Output 09/16/18 09/16/18 09/17/18 1515:00 23:00 07:00 IntakeIntake Total 1710 ml 500 ml BalanceBalance 1710 ml 500 ml Exam Free Text/Dictation Constitutional: alert, oriented, well developed Psych: nl mood/affect, anxiety (Minimal) Head: normocephalic, atraumatic Eyes: nl conjunctiva, nl lids, nl sclera ENMT: nl external ears & nose, nl nasal mucosa & septum, mucosa pink and moist Neck: supple, non-tender; No jvd Respiratory: normal air movement; No congested cough Cardiovascular: regular rate and rhythm, nl pulses; No edema Gastrointestinal: soft, bowel sounds (X4 quads quadrants), nondistended, other (+ Flatus; rectal exam: Good rectal tone, no noted impacted stool); No rebound or guarding, No tender Genitourinary - Female: nl external genitalia Musculoskeletal: nl extremities to inspection, nl gait and stance Extremities: normal pulses Neurological: nl mental status, nl speech; No nl strength (Generalized weakness) Skin: nl turgor; No rash or lesions Lymph: nl lymph nodes Results Result Diagram: 09/17/18 0432 09/17/18 0431 LAUREN ZHONG NP Sep 17, 2018 13:45
[2018-09-17 16:04] VITALS: BP 131/70; PULSE 78; RESP 19
[2018-09-17] MEDS: SOD CHLORIDE 0.9% 1,000 ML IV SCH (17:18)
[2018-09-17 19:40] VITALS: BP 135/69; PULSE 77; RESP 18
[2018-09-17] MEDS: LUBIPROSTONE 24 MCG CAP PO SCH (21:00)
[2018-09-17] MEDS: ATORVASTATIN 40 MG TAB PO SCH (21:24)
[2018-09-18 02:02] VITALS: BP 151/65; PULSE 70; RESP 70
[2018-09-18] MEDS: HYDROCHLOROTHIAZIDE 25 MG TAB PO SCH (04:57)
[2018-09-18] MEDS: KETOROLAC 30 MG INJ IV PRN ×2 (04:57→23:13)
[2018-09-18] MEDS: METOCLOPRAMIDE 10 MG INJ IV SCH ×3 (04:57→12:00)
[2018-09-18] MEDS: SOD CHLORIDE 0.9% 1,000 ML IV SCH (06:14)
[2018-09-18 07:33] VITALS: BP 178/80; PULSE 73; RESP 20
[2018-09-18] MEDS: POLYETHYLENE GLYCOL 17 GM PACKET PO SCH ×2 (07:35→20:04)
[2018-09-18] MEDS: ATENOLOL 50 MG TAB PO SCH ×2 (07:35→20:08)
[2018-09-18] MEDS: AMLODIPINE 2.5 MG TAB PO SCH (07:35)
[2018-09-18] MEDS: DULOXETINE 30 MG CAP DR PO SCH (07:35)
[2018-09-18] MEDS: FAMOTIDINE 20 MG TAB PO SCH ×2 (07:36→20:06)
[2018-09-18] MEDS: LISINOPRIL 20 MG TAB PO SCH (07:36)
[2018-09-18] MEDS: LUBIPROSTONE 24 MCG CAP PO SCH ×2 (07:40→20:06)
[2018-09-18] MEDS: ASPIRIN 81 MG TAB PO SCH (08:38)
[2018-09-18] MEDS: ENOXAPARIN 40 MG/0.4 ML SYG SC SCH (08:38)
[2018-09-18] MEDS: CALCIUM/VITAMIN D (500/200) TAB PO SCH (08:43)
--- NOTE | 2018-09-18 09:08 | PN ---
Date/Time of Note Date/Time of Note DATE: 09/18/18 TIME: 09:04 Assessment/Plan VTE Prophylaxis Risk score (from Nsg)>0 risk: 5 SCD applied (from Nsg): Yes Pharmacological prophylaxis: LMWH Lines/Catheters IV Catheter Type (from Nrsg): Saline Lock Urinary Cath still in place: No Assessment/Plan Hospital Course SUBJECTIVE: Had multiple BMs yesterday. Currently on full liquids. Denies any abdominal pain. Complains of back pain. OBJECTIVE: Physical Exam General: Obese, 77 year-old female lying in bed in no apparent distress. HEENT: Normocephalic, atraumatic. Eyes: Anicteric sclerae, conjunctivae clear. ENT: Nasal septum midline, oral mucosa moist. Neck: Short and obese. Respiratory: Bilaterally diminished breath sounds. No use of accessory muscles of respiration. No adventitious breath sounds. Cardiovascular: S1, S2 heard. Sternotomy scar. Regular rate and rhythm. Abdomen: Soft. Bowel sounds positive in al four quadrants. Genitourinary: Deferred. Extremities: No cyanosis, no clubbing, no edema. Peripheral pulses palpable. Neurologic: Cranial nerves II through XII grossly intact. The patient is awake, alert, and oriented. Labs & Vitals per chart ASSESSMENT & PLAN 77-year-old female with comorbidities including CAD status post coronary artery bypass grafting, hypertension, dyslipidemia, osteoporosis, osteoarthritis, and obesity who had an unwitnessed fall at home with imaging studies showing mild compression fracture of the superior endplate of T12 vertebral body, who was admitted to inpatient setting for further treatment and evaluation. 1. Acute T12 vertebral body fracture. Continue pain control. Physical therapy following. 2. Status post fall. Etiology unclear. Brain CT scan negative for any stroke. Physical therapy evaluation. Fall precautions. 3. Hypertension. Continue antihypertensives. 4. Abdominal pain with KUB suggesting adynamic ileus CT scan also suggesting the same. The patient was kept n.p.o on 09/15/2018. Started clears on 09/16/2018. Started full liquids from 09/17/2018. General surgery and gastroenterology following. Continue prokinetics. 5. CAD, status post coronary artery bypass grafting. Continue aspirin. Continue beta-blockers and FAN inhibitors. 6. Dyslipidemia. Continue statins. 7. Osteoporosis. Continue calcium and vitamin D supplements. 8. Obesity. BMI more than 38 kg/m. 9. Fluids, electrolytes, and nutrition. Full liquids. 10. DVT prophylaxis. Subcutaneous Lovenox. 11. Plan. Continue pain control. Advance diet as tolerated. Discharge planning is to ARU once the patient is clinically stable. The patient was seen in collaboration with Dr. Haley. Result Diagram: 09/18/1843909/18/180 Results 24hrs Laboratory Tests Test 09/18/18 04:40 White Blood Count 7.6 Red Blood Count 4.47 Hemoglobin 12.4 Hematocrit 39.7 Mean Corpuscular Volume 88.8 Mean Corpuscular Hemoglobin 27.7 L Mean Corpuscular Hemoglobin Concent 31.2 L Red Cell Distribution Width 12.7 Platelet Count 249 Mean Platelet Volume 8.8 Immature Granulocytes % 0.500 H Neutrophils % 60.1 Lymphocytes % 25.3 Monocytes % 12.0 H Eosinophils % 1.7 Basophils % 0.4 Nucleated Red Blood Cells % 0.0 Immature Granulocytes # 0.040 H Neutrophils # 4.6 Lymphocytes # 1.9 Monocytes # 0.9 Eosinophils # 0.1 Basophils # 0.0 Nucleated Red Blood Cells # 0.0 Sodium Level 138 Potassium Level 3.7 Chloride Level 101 Carbon Dioxide Level 29 Anion Gap 8 Blood Urea Nitrogen 8 Creatinine 0.54 Est Glomerular Filtrat Rate mL/min Glucose Level 105 Calcium Level 8.8 Phosphorus Level 3.7 Magnesium Level 2.3 Total Bilirubin 0.8 Direct Bilirubin 0.00 Indirect Bilirubin 0.8 Aspartate Amino Transf (AST/SGOT) 19 Alanine Aminotransferase (ALT/SGPT) 21 Alkaline Phosphatase 46 Total Protein 6.5 Albumin 3.7 Globulin 2.80 Albumin/Globulin Ratio 1.32 Exam/Review of Systems Exam Vitals Vital Signs Date Temp Pulse Resp B/P (MAP) Pulse Ox O2 O2 Flow FiO2 Time Delivery Rate 09/18/18 98.3 73 20 178/80 93 Room Air 07:33 (112) Intake and Output 09/17/18 09/17/18 09/18/18 1515:00 23:00 07:00 IntakeIntake Total 280 ml 600 ml 1000 ml BalanceBalance 280 ml 600 ml 1000 ml Results Results 24hrs Laboratory Tests Test 09/18/18 04:40 White Blood Count 7.6 Red Blood Count 4.47 Hemoglobin 12.4 Hematocrit 39.7 Mean Corpuscular Volume 88.8 Mean Corpuscular Hemoglobin 27.7 L Mean Corpuscular Hemoglobin Concent 31.2 L Red Cell Distribution Width 12.7 Platelet Count 249 Mean Platelet Volume 8.8 Immature Granulocytes % 0.500 H Neutrophils % 60.1 Lymphocytes % 25.3 Monocytes % 12.0 H Eosinophils % 1.7 Basophils % 0.4 Nucleated Red Blood Cells % 0.0 Immature Granulocytes # 0.040 H Neutrophils # 4.6 Lymphocytes # 1.9 Monocytes # 0.9 Eosinophils # 0.1 Basophils # 0.0 Nucleated Red Blood Cells # 0.0 Sodium Level 138 Potassium Level 3.7 Chloride Level 101 Carbon Dioxide Level 29 Anion Gap 8 Blood Urea Nitrogen 8 Creatinine 0.54 Est Glomerular Filtrat Rate mL/min Glucose Level 105 Calcium Level 8.8 Phosphorus Level 3.7 Magnesium Level 2.3 Total Bilirubin 0.8 Direct Bilirubin 0.00 Indirect Bilirubin 0.8 Aspartate Amino Transf (AST/SGOT) 19 Alanine Aminotransferase (ALT/SGPT) 21 Alkaline Phosphatase 46 Total Protein 6.5 Albumin 3.7 Globulin 2.80 Albumin/Globulin Ratio 1.32 Medications Medication Current Medications IV Flush (NS 3 ml) 3 ml PER PROTOCOL IV ; Start 09/13/18 at 10:00 Ondansetron HCl (Zofran Inj) 4 mg Q6H PRN IV NAUSEA/VOMITING Last administered on 09/17/18at 08:43; Admin Dose 4 MG; Start 09/13/18 at 10:00 Acetaminophen (Tylenol Tab) 650 mg Q6H PRN PO .PAIN 1-3 OR TEMP Last administered on 09/14/18at 22:25; Admin Dose 650 MG; Start 09/13/18 at 10:00 Acetaminophen/ Hydrocodone Bitart ([place] (5/325)) 1 tab Q6H PRN PO .MOD PAIN 4- 6 Last administered on 09/17/18at 22:10; Admin Dose 1 TAB; Start 09/13/18 at 10:00 Morphine Sulfate (morphine) 2 mg Q4H PRN IV .SEVERE PAIN 7-10 Last administered on 09/17/18at 08:44; Admin Dose 2 MG; Start 09/13/18 at 10:00 Enoxaparin Sodium (Lovenox) 40 mg DAILY SC Last administered on 09/18/18 08:38; Admin Dose 40 MG; Start 09/13/18 at 10:00 Aspirin (Aspirin) 81 mg DAILY PO Last administered on 09/18/18 08:38; Admin Dose 81 MG; Start 09/13/18 at 10:00 Atorvastatin Calcium (Lipitor) 40 mg QHS PO Last administered on 09/17/18 21:24; Admin Dose 40 MG; Start 09/13/18 at 21:00 Calcium/Vitamin D (Oyster Shell/ Vit-D (500/200)) 1 tab DAILY PO Last administered on 09/18/18 08:43; Admin Dose 1 TAB; Start 09/13/18 at 10:00 Hydrochlorothiazide (Hydrochlorothiazide) 25 mg DAILY@0600 PO Last administered on 09/18/18 04:57; Admin Dose 25 MG; Start 09/13/18 at 10:00 Amlodipine Besylate (Norvasc) 2.5 mg DAILY PO Last administered on 09/18/18 07:35; Admin Dose 2.5 MG; Start 09/13/18 at 10:00 Lisinopril (Zestril) 20 mg DAILY PO Last administered on 09/18/18 07:36; Admin Dose 20 MG; Start 09/13/18 at 10:00 Hydralazine HCl (Apresoline) 10 mg Q6H PRN IV SbP>160 Last administered on 09/14/18 16:26; Admin Dose 10 MG; Start 09/13/18 at 11:00 Duloxetine HCl (Cymbalta) 60 mg DAILY PO Last administered on 09/18/18 07:35; Admin Dose 60 MG; Start 09/13/18 at 11:00 Polyethylene Glycol (Miralax) 17 gm BID PO Last administered on 09/17/18 08:44; Admin Dose 17 GM; Start 09/13/18 at 21:00 Bisacodyl (Dulcolax) 10 mg DAILY PRN PO CONSTIPATION Last administered on 09/17/18 08:44; Admin Dose 10 MG; Start 09/13/18 at 16:30 Famotidine (Pepcid) 20 mg BID PO Last administered on 09/18/18 07:36; Admin Dose 20 MG; Start 09/14/18 at 21:00 Atenolol (Tenormin) 50 mg BID PO Last administered on 09/18/18 07:35; Admin Dose 50 MG; Start 09/15/18 at 21:00 Simethicone (Mylicon) 160 mg Q6 PO Last administered on 09/18/18at 04:56; Admin Dose 160 MG; Start 09/15/18 at 12:00 Ketorolac Tromethamine (Toradol) 30 mg Q6H PRN IV PAIN LEVEL 1-3 Last administered on 09/18/18at 04:57; Admin Dose 30 MG; Start 09/17/18 at 09:30; St op 09/20/18 at 09:29 Metoclopramide HCl (Reglan) 5 mg Q6 IV Last administered on 09/18/18at 04:57; Ad min Dose 5 MG; Start 09/17/18 at 12:00 Lubiprostone (Amitiza) 24 mcg BID PO ; Start 09/17/18 at 21:00 DENG AMEZCUA NP Sep 18, 2018 09:08
[2018-09-18 10:00] VITALS: BP 143/72
[2018-09-18] MEDS: morphine 2 MG INJ IV PRN ×2 (11:21→20:09)
[2018-09-18 14:00] VITALS: BP 142/69; PULSE 73; RESP 18
[2018-09-18] MEDS: HYDROCODONE/APAP (5/325) TAB PO PRN (14:55)
--- NOTE | 2018-09-18 15:57 | PN ---
Date/Time of Note Date/Time of Note DATE: 09/18/18 TIME: 15:53 Assessment/Plan VTE Prophylaxis Risk score (from Ns)>0 risk: 5 SCD applied (from Ns): Yes Pharmacological prophylaxis: heparin Lines/Catheters IV Catheter Type (from Nrs): Saline Lock Urinary Cath still in place: No Assessment/Plan Assessment/Plan Assessment: Constipation chronic on acute, improving Ileus CAD status post coronary artery bypass grafting Hypertension Dyslipidemia Osteoporosis Osteoarthritis Obesity Plan: Continue Amitiza twice daily Hold laxatives for diarrhea Advance to regular diet Patient seen in collaboration with Dr. Melton Subjective: Patient states she had multiple bowel movements and feels relieved. Denies abdominal pain, tolerating diet. Continue bowel regimen, hold for diarrhea. Result Diagram: 09/18/1843909/18/18439 Results 24hrs Laboratory Tests Test 09/18/18 04:40 White Blood Count 7.6 Red Blood Count 4.47 Hemoglobin 12.4 Hematocrit 39.7 Mean Corpuscular Volume 88.8 Mean Corpuscular Hemoglobin 27.7 L Mean Corpuscular Hemoglobin Concent 31.2 L Red Cell Distribution Width 12.7 Platelet Count 249 Mean Platelet Volume 8.8 Immature Granulocytes % 0.500 H Neutrophils % 60.1 Lymphocytes % 25.3 Monocytes % 12.0 H Eosinophils % 1.7 Basophils % 0.4 Nucleated Red Blood Cells % 0.0 Immature Granulocytes # 0.040 H Neutrophils # 4.6 Lymphocytes # 1.9 Monocytes # 0.9 Eosinophils # 0.1 Basophils # 0.0 Nucleated Red Blood Cells # 0.0 Sodium Level 138 Potassium Level 3.7 Chloride Level 101 Carbon Dioxide Level 29 Anion Gap 8 Blood Urea Nitrogen 8 Creatinine 0.54 Est Glomerular Filtrat Rate mL/min Glucose Level 105 Calcium Level 8.8 Phosphorus Level 3.7 Magnesium Level 2.3 Total Bilirubin 0.8 Direct Bilirubin 0.00 Indirect Bilirubin 0.8 Aspartate Amino Transf (AST/SGOT) 19 Alanine Aminotransferase (ALT/SGPT) 21 Alkaline Phosphatase 46 Total Protein 6.5 Albumin 3.7 Globulin 2.80 Albumin/Globulin Ratio 1.32 CC: ELIEZER MELTON MD ; Exam/Review of Systems Exam Vitals Vital Signs Date Temp Pulse Resp B/P (MAP) Pulse Ox O2 O2 Flow FiO2 Time Delivery Rate 09/18/18 98.3 73 18 142/69 90 Room Air 14:00 (93) Intake and Output 09/17/18 09/17/18 09/18/18 1515:00 23:00 07:00 IntakeIntake Total 280 ml 600 ml 1000 ml BalanceBalance 280 ml 600 ml 1000 ml Results Results 24hrs Laboratory Tests Test 09/18/18 04:40 White Blood Count 7.6 Red Blood Count 4.47 Hemoglobin 12.4 Hematocrit 39.7 Mean Corpuscular Volume 88.8 Mean Corpuscular Hemoglobin 27.7 L Mean Corpuscular Hemoglobin Concent 31.2 L Red Cell Distribution Width 12.7 Platelet Count 249 Mean Platelet Volume 8.8 Immature Granulocytes % 0.500 H Neutrophils % 60.1 Lymphocytes % 25.3 Monocytes % 12.0 H Eosinophils % 1.7 Basophils % 0.4 Nucleated Red Blood Cells % 0.0 Immature Granulocytes # 0.040 H Neutrophils # 4.6 Lymphocytes # 1.9 Monocytes # 0.9 Eosinophils # 0.1 Basophils # 0.0 Nucleated Red Blood Cells # 0.0 Sodium Level 138 Potassium Level 3.7 Chloride Level 101 Carbon Dioxide Level 29 Anion Gap 8 Blood Urea Nitrogen 8 Creatinine 0.54 Est Glomerular Filtrat Rate mL/min Glucose Level 105 Calcium Level 8.8 Phosphorus Level 3.7 Magnesium Level 2.3 Total Bilirubin 0.8 Direct Bilirubin 0.00 Indirect Bilirubin 0.8 Aspartate Amino Transf (AST/SGOT) 19 Alanine Aminotransferase (ALT/SGPT) 21 Alkaline Phosphatase 46 Total Protein 6.5 Albumin 3.7 Globulin 2.80 Albumin/Globulin Ratio 1.32 Medications Medication Current Medications IV Flush (NS 3 ml) 3 ml PER PROTOCOL IV ; Start 09/13/18 at 10:00 Ondansetron HCl (Zofran Inj) 4 mg Q6H PRN IV NAUSEA/VOMITING Last administered on 09/17/18at 08:43; Admin Dose 4 MG; Start 09/13/18 at 10:00 Acetaminophen (Tylenol Tab) 650 mg Q6H PRN PO .PAIN 1-3 OR TEMP Last administered on 09/14/18at 22:25; Admin Dose 650 MG; Start 09/13/18 at 10:00 Acetaminophen/ Hydrocodone Bitart ([place] (5/325)) 1 tab Q6H PRN PO .MOD PAIN 4- 6 Last administered on 09/18/18at 14:55; Admin Dose 1 TAB; Start 09/13/18 at 10:00 Morphine Sulfate (morphine) 2 mg Q4H PRN IV .SEVERE PAIN 7-10 Last administered on 09/18/18 11:21; Admin Dose 2 MG; Start 09/13/18 at 10:00 Enoxaparin Sodium (Lovenox) 40 mg DAILY SC Last administered on 09/18/18 08:38; Admin Dose 40 MG; Start 09/13/18 at 10:00 Aspirin (Aspirin) 81 mg DAILY PO Last administered on 09/18/18 08:38; Admin Dose 81 MG; Start 09/13/18 at 10:00 Atorvastatin Calcium (Lipitor) 40 mg QHS PO Last administered on 09/17/18 21:24; Admin Dose 40 MG; Start 09/13/18 at 21:00 Calcium/Vitamin D (Oyster Shell/ Vit-D (500/200)) 1 tab DAILY PO Last administered on 09/18/18 08:43; Admin Dose 1 TAB; Start 09/13/18 at 10:00 Hydrochlorothiazide (Hydrochlorothiazide) 25 mg DAILY@0600 PO Last administered on 09/18/18 04:57; Admin Dose 25 MG; Start 09/13/18 at 10:00 Lisinopril (Zestril) 20 mg DAILY PO Last administered on 09/18/18 07:36; Admin Dose 20 MG; Start 09/13/18 at 10:00 Hydralazine HCl (Apresoline) 10 mg Q6H PRN IV SbP>160 Last administered on 09/14/18 16:26; Admin Dose 10 MG; Start 09/13/18 at 11:00 Duloxetine HCl (Cymbalta) 60 mg DAILY PO Last administered on 09/18/18 07:35; Admin Dose 60 MG; Start 09/13/18 at 11:00 Polyethylene Glycol (Miralax) 17 gm BID PO Last administered on 09/17/18 08:44; Admin Dose 17 GM; Start 09/13/18 at 21:00 Bisacodyl (Dulcolax) 10 mg DAILY PRN PO CONSTIPATION Last administered on 09/17/18 08:44; Admin Dose 10 MG; Start 09/13/18 at 16:30 Famotidine (Pepcid) 20 mg BID PO Last administered on 09/18/18 07:36; Admin Dose 20 MG; Start 09/14/18 at 21:00 Atenolol (Tenormin) 50 mg BID PO Last administered on 09/18/18 07:35; Admin Dose 50 MG; Start 09/15/18 at 21:00 Simethicone (Mylicon) 160 mg Q6 PO Last administered on 09/18/18 04:56; Admin Dose 160 MG; Start 09/15/18 at 12:00 Ketorolac Tromethamine (Toradol) 30 mg Q6H PRN IV PAIN LEVEL 1-3 Last administered on 09/18/18 04:57; Admin Dose 30 MG; Start 09/17/18 at 09:30; Stop 09/20/18 at 09:29 Metoclopramide HCl (Reglan) 5 mg Q6 IV Last administered on 09/18/18 04:57; Admin Dose 5 MG; Start 09/17/18 at 12:00 Lubiprostone (Amitiza) 24 mcg BID PO ; Start 09/17/18 at 21:00 Amlodipine Besylate (Norvasc) 5 mg DAILY PO ; Start 09/19/18 at 09:00 CAROLIN BARNETT NP Sep 18, 2018 15:57
[2018-09-18 19:55] VITALS: BP 160/72; PULSE 70; RESP 20
[2018-09-18] MEDS: ATORVASTATIN 40 MG TAB PO SCH (20:06)
--- NOTE | 2018-09-18 22:26 | PN ---
Date/Time of Note Date/Time of Note DATE: 09/18/18 TIME: 22:21 Assessment/Plan Lines/Catheters IV Catheter Type (from Nrs): Saline Lock [place] in Place (from Nrs): No Assessment/Plan Chief Complaint/Hosp Course 1. Abdominal pain with concern for adynamic ileus; KUB with noted gas throughout small bowel and colon without evidence of obstruction. N/V resolved. +Flatus and BMs. -diet and bowel regimen per GI -simethicone -ambulation -limit narcotic medications 2. T12 vertebral body fracture status post fall: -Pain control preferably with nonnarcotics -Fall precautions -Continue physical therapy 3. Hypertension, CAD history -Medical management -Highly encouraged weight loss 4. Obesity BMI: 39 -diet and exercise optimization -encourage weight loss 5. Osteoarthritis, Osteoporosis: -Medical management Thank you Subjective 24 Hr Interval Summary Flatus and BM. Abdominal pain improved. Back pain. No n/v. No fevers, chills, sob, congested cough, cp, palpitations, ramirez, dizziness, dysuria. Exam/Review of Systems Vital Signs Vitals Vital Signs Date Temp Pulse Resp B/P (MAP) Pulse Ox O2 O2 Flow FiO2 Time Delivery Rate 09/18/18 97.4 70 20 160/72 93 19:55 (101) 09/18/18 Room Air 14:00 Intake and Output 09/17/18 09/17/18 09/18/18 1515:00 23:00 07:00 IntakeIntake Total 280 ml 600 ml 1000 ml BalanceBalance 280 ml 600 ml 1000 ml Exam Free Text/Dictation Constitutional: alert, oriented, well developed Psych: nl mood/affect, anxiety (Minimal) Head: normocephalic, atraumatic Eyes: nl conjunctiva, nl lids, nl sclera ENMT: nl external ears & nose, nl nasal mucosa & septum, mucosa pink and moist Neck: supple, non-tender; No jvd Respiratory: normal air movement; No congested cough Cardiovascular: regular rate and rhythm, nl pulses; No edema Gastrointestinal: soft, obese, nt, no rebound/guarding/rigidity No rebound or guarding, No tender Genitourinary - Female: nl external genitalia Musculoskeletal: nl extremities to inspection, nl gait and stance Extremities: normal pulses Neurological: nl mental status, nl speech; No nl strength (Generalized weakness) Skin: nl turgor; No rash or lesions Lymph: nl lymph nodes Results Result Diagram: 09/18/18 0440 09/18/18 0440 TRUDY KING MD Sep 18, 2018 22:26
[2018-09-19 02:40] VITALS: BP 166/74; PULSE 74; RESP 20
[2018-09-19 06:02] VITALS: BP 148/65; PULSE 63
[2018-09-19] MEDS: HYDROCHLOROTHIAZIDE 25 MG TAB PO SCH (06:05)
[2018-09-19] MEDS: KETOROLAC 30 MG INJ IV PRN (06:41)
[2018-09-19 07:45] VITALS: BP 158/71; PULSE 66; RESP 14
--- NOTE | 2018-09-19 08:39 | PDOCDIS ---
Discharge Instructions CONDITION [id number] Patient Condition: [id number] Stable HOME CARE INSTRUCTIONS: [id number] Diet Instructions: [id number] Low Fat /Cholesterol FOLLOW UP/APPOINTMENTS Follow-up Plan The patient being transferred to inpatient acute rehabilitation unit. DENG AMEZCUA NP Sep 19, 2018 08:39
--- NOTE | 2018-09-19 08:44 | DS ---
Date/Time of Note Date/Time of Note DATE: 09/19/18 TIME: 08:40 Discharge Summary Admission/Discharge Info Admit Date/Time Sep 14, 2018 at 13:37 Discharge Date/Time Discharge Diagnosis 1. Acute T12 vertebral body fracture. 2. Status post ground level fall. 3. Hypertension. 4. S/P ileus. 5. CAD, status post coronary artery bypass grafting. 6. Dyslipidemia. 7. Osteoporosis. 8. Obesity. BMI more than 38 kg/m. Patient Condition: Stable Consults 1. Isac Figueredo MD, General Surgery. 2. Gus Melton MD, Gastroenterology. Procedures CT Abdomen & Pelvis on 09/15/2018 IMPRESSION: 1. Moderate distension of the colon with air and fecal content along with mild gas distension of multiple loops of small bowel. These findings represent ileus. No bowel obstruction. 2. Colonic diverticulosis without CT evidence of acute diverticulitis. 3. Age indeterminate compression deformity of L1 with approximately 25% vertebral body height loss. Correlation with point tenderness is recommended. CT of the Lumbar Spine IMPRESSION: 1. Partially imaged probable acute mild superior endplate compression fracture of T12 with less than 20% height loss. No retropulsion. No central canal compromise. 2. Lumbar vertebral body heights are maintained. 3. Severe discogenic disease and degenerative grade 1 anterolisthesis at L4-L5, as described above. 4. Right pars interarticularis defect at L5-S1 with no spondylolisthesis. 5. Mild lumbar spondylosis/degenerative enthesopathy in the remainder of the lumbar spine, as described above. Hx of Present Illness Reason for admission: Back pain, status post fall. This is a 77-year-old female with past medical history of CAD, S/P CABG, hyp ertension, dyslipidemia, obesity, osteoporosis, and osteoarthritis. The patient lives alone in her apartment. The patient sustained a fall that was unwitnessed. As per the patient, this happened because she "lost her balance." The patient denied any loss of consciousness, palpitations, or dizziness. The patient fell on her back with impact to the back and to the left forearm. The patient denied hitting her head. The patient was complaining of throbbing back pain and left elbow pain following the fall. The patient denied any numbness or tingling. After the fall, the patient was unable to get up from the floor and she managed to crawl on the floor to reach the telephone to call her daughter. Later, paramedics were called and the patient was brought to the emergency room. The patient denied any urinary incontinence. In the emergency room, the patient underwent imaging studies of the thoracic spine CT showing acute appearing, mild compression fracture of the superior endplate of T12 vertebral body with less than 20% height loss with no significant retropulsion. She was treated with IV morphine in the emergency room. Hospital Course The patient was admitted to inpatient setting. She was started on adequate pain control. Physical therapy evaluation was ordered. A pa brace was put in place for help with pain control. The patient did not have any evidence of any focal neurologic deficits. The patient was continued with physical therapy. However, the patient needs further physical therapy before she can be safely discharged home. Therefore, a clinical decision was made to discharge this patient to inpatient acute rehabilitation unit for further rehabilitation prior to discharge. The etiology of the patient's fall at home was unclear. The patient underwent a brain CT scan that was negative for any stroke. The patient's antihypertensives were adjusted to avoid a any significant hypotension that might have caused the patient's fall. The patient's antihypertensives were adjusted a couple of times to obtain optimal blood pressure control. During the hospital course, she started complaining of abdominal pain and she had significant constipation. The patient underwent a KUB on 09/14/2018 that was showing adynamic ileus. Therefore, the patient was kept n.p.o. The patient also underwent a CT scan of the abdomen and pelvis on 09/15/2018 that was showing evidence of ileus but no evidence of any underlying bowel obstruction. Therefore, general surgery was involved the patient's care. The patient was kept n.p.o. for at least 24 hours. She was started on prokinetics and bowel regimen. She also received magnesium citrate, lactulose, and fleets enema with positive bowel movements. The patient was also started on Amitiza. The patient's abdominal pain and ileus resolved with the treatment strategy. The patient's diet was advanced as tolerated to a regular consistency diet without any significant gastrointestinal symptoms. The patient has history of CAD and she is status post coronary artery bypass grafting. She was maintained on aspirin. She was maintained on beta-blockers and FAN inhibitors. She has a history of dyslipidemia. She was maintained on statins. The patient has a history of osteoporosis. She was maintained on calcium and vitamin D supplements. The patient is also obese with a BMI of more than 38 kg/m. The patient was advised on lifestyle modification. The patient had a stable, but prolonged hospital course because of the ileus that prolonged the patient's hospital course. The patient is stable to be discharged to inpatient acute rehabilitation unit for further rehabilitation before the patient can be safely discharged home. At this time I would like to thank all the consultants for seeing the patient and providing clinical recommendations. The patient was seen in collaboration with Dr. Haley. Home Meds Active Scripts Polyethylene Glycol* (Miralax*) 17 Gm Powd.pack, 17 GM PO BID, #30 Prov:DENG AMEZCUA NP 09/19/18 Lubiprostone* (Amitiza*) 24 Mcg Capsule, 24 MCG PO BID, #30 CAP Prov:DENG AMEZCUA NP 09/19/18 Bisacodyl* (Bisacodyl*) 5 Mg Tablet., 10 MG PO DAILY PRN for CONSTIPATION for 7 Days Prov:DENG AMEZCUA NP 09/19/18 Ketorolac Tromethamine (Ketorolac Tromethamine) 30 Mg/1 Ml Vial, 30 MG IV Q6H PRN for PAIN LEVEL 1-3 for 1 Day, VIAL Prov:DENG AMEZCUA NP 09/19/18 Hydrocodone Bit-Acetaminophen (Hydrocodone Bit-APAP) 5-325MG Tablet, 1 TAB PO Q6H PRN for .MOD PAIN 4-6, #20 TAB Prov:DENG AMEZCUA NP 09/19/18 Lisinopril* (Lisinopril*) 20 Mg Tablet, 20 MG PO DAILY, #30 TAB Prov:DENG AMEZCUA NP 09/19/18 Atenolol* (Atenolol*) 50 Mg Tablet, 50 MG PO BID, #60 TAB Prov:DENG AMEZCUA NP 09/19/18 Reported Medications Hydrochlorothiazide* (Hydrochlorothiazide*) 25 Mg Tab, 25 MG PO DAILY, #30 TAB 09/13/18 Duloxetine Hcl* (Duloxetine Hcl*) 60 Mg Capsule.dr, 1 CAP ORAL DAILY 09/13/18 Calcium Carbonate/Vitamin D3 (Oyster Shell Calcium + D Cplt) 1 Each Tablet, 1 TAB PO DAILY, TAB 09/13/18 Atorvastatin* (Atorvastatin*) 40 Mg Tablet, 40 MG PO QHS, #30 TAB 09/13/18 Aspirin* (Aspirin* Chew) 81 Mg Tab.chew, 81 MG PO DAILY, TAB.CHEW 09/13/18 Amlodipine Besylate* (Amlodipine Besylate*) 5 Mg Tablet, 1 TAB ORAL DAILY 09/13/18 Alendronate Sodium* (Fosamax*) 70 Mg Tablet, 1 TAB ORAL weekly on Thursday09/13/18 Discontinued Reported Medications Lisinopril* (Lisinopril*) 40 Mg Tablet, 1 TAB ORAL DAILY 09/13/18 Clonidine Hcl* (Clonidine Hcl*) 0.1 Mg Tab, 0.1 MG PO Q8 PRN for q8, TAB FOR HTN 09/13/18 Atenolol* (Atenolol*) 100 Mg Tablet, 1 TAB ORAL DAILY 09/13/18 Celecoxib* (Celebrex*) 100 Mg Capsule 06/01/09 Clonidine Hcl (Clonidine Hcl) 0.1 Mg Tablet 06/01/09 Escitalopram Oxalate* (Lexapro*) 10 Mg Tablet 06/01/09 Follow-up Plan The patient being transferred to inpatient acute rehabilitation unit. Primary Care Provider Not On Staff Doctor Time spent on discharge: > 30 minutes DENG AMEZCUA NP Sep 19, 2018 08:44
[2018-09-19] MEDS: ATENOLOL 50 MG TAB PO SCH (08:53)
[2018-09-19] MEDS: LISINOPRIL 20 MG TAB PO SCH (08:53)
[2018-09-19] MEDS: FAMOTIDINE 20 MG TAB PO SCH (08:53)
[2018-09-19] MEDS: DULOXETINE 30 MG CAP DR PO SCH (08:53)
[2018-09-19] MEDS: CALCIUM/VITAMIN D (500/200) TAB PO SCH (08:53)
[2018-09-19] MEDS: LUBIPROSTONE 24 MCG CAP PO SCH (08:54)
[2018-09-19] MEDS: ASPIRIN 81 MG TAB PO SCH (08:54)
[2018-09-19] MEDS: POLYETHYLENE GLYCOL 17 GM PACKET PO SCH (08:54)
[2018-09-19] MEDS: ENOXAPARIN 40 MG/0.4 ML SYG SC SCH (08:58)
[2018-09-19] MEDS ORDERED: AMLODIPINE 5 MG TAB PO SCH (09:00)
--- NOTE | 2018-09-19 11:03 | PN ---
Date/Time of Note Date/Time of Note DATE: 09/19/18 TIME: 11:01 Assessment/Plan Lines/Catheters IV Catheter Type (from Nrs): Saline Lock [place] in Place (from Nrs): No Assessment/Plan Chief Complaint/Hosp Course 1. Abdominal pain with concern for adynamic ileus; KUB with noted gas throughout small bowel and colon without evidence of obstruction. N/V resolved. +Flatus and BMs. -diet and bowel regimen per GI -simethicone -ambulation -limit narcotic medications 2. T12 vertebral body fracture status post fall: -Pain control preferably with nonnarcotics -Fall precautions -Continue physical therapy 3. Hypertension, CAD history -Medical management -Highly encouraged weight loss 4. Obesity BMI: 39 -diet and exercise optimization -encourage weight loss 5. Osteoarthritis, Osteoporosis: -Medical management Thank you Subjective 24 Hr Interval Summary Flatus and BM. Abdominal pain improved. Back pain. No n/v. No fevers, chills, sob, congested cough, cp, palpitations, ramirez, dizziness, dysuria. Exam/Review of Systems Vital Signs Vitals Vital Signs Date Temp Pulse Resp B/P (MAP) Pulse Ox O2 O2 Flow FiO2 Time Delivery Rate 09/19/18 98.8 66 14 158/71 98 Room Air 07:45 (100) Intake and Output 09/18/18 09/18/18 09/19/18 1515:00 23:00 07:00 IntakeIntake Total 180 ml 1250 ml OutputOutput Total 400 ml BalanceBalance 180 ml 1250 ml -400 ml Exam Free Text/Dictation Constitutional: alert, oriented, well developed Psych: nl mood/affect, anxiety (Minimal) Head: normocephalic, atraumatic Eyes: nl conjunctiva, nl lids, nl sclera ENMT: nl external ears & nose, nl nasal mucosa & septum, mucosa pink and moist Neck: supple, non-tender; No jvd Respiratory: normal air movement; No congested cough Cardiovascular: regular rate and rhythm, nl pulses; No edema Gastrointestinal: soft, obese, nt, no rebound/guarding/rigidity No rebound or guarding, No tender Genitourinary - Female: nl external genitalia Musculoskeletal: nl extremities to inspection, nl gait and stance Extremities: normal pulses Neurological: nl mental status, nl speech; No nl strength (Generalized weakness) Skin: nl turgor; No rash or lesions Lymph: nl lymph nodes Results Result Diagram: 09/18/18 0440 09/18/18 0440 TRUDY KING MD Sep 19, 2018 11:03
[2018-09-19] MEDS: HYDROCODONE/APAP (5/325) TAB PO PRN (12:15)
--- NOTE | 2018-09-20 09:23 | RADRPT ---
Vent Rate: 69 bpm RR Interval: 872 msec ND Interval: 172 msec QRS Duration: 146 msec QT Interval: 451 msec QTC Interval: 483 msec P-R-T Avis: 64 - 44 - 8 degrees Sinus rhythm...normal P axis, V-rate 50- 99 Right bundle branch block...QRSd>120, terminal axis(90,270) Inferior infarct, old...Q >35mS, II III aVF Anterolateral infarct, age indeterminate...Q >35mS, flat/neg T, V3-V6,I,aVL Electronically Signed By: Issac Jung
== END 2018-09-19 13:57 | DRG 552 ==
LOC: E/R 04:52 → INTOOBSV 08:51 → MS1 08:51 → OBSVTOIN 09-14 13:37
PROVIDERS: ADMIT Internal Medicine; ATTEND Internal Medicine
DX: S22.089A Unspecified fracture of T11-T12 vertebra, initial encounter for closed fracture (principal); K56.7 Ileus, unspecified; E66.01 Morbid (severe) obesity due to excess calories; Z68.38 Body mass index [BMI] 38.0-38.9, adult; I10 Essential (primary) hypertension; E78.5 Hyperlipidemia, unspecified; I25.10 Atherosclerotic heart disease of native coronary artery without angina pectoris; M81.0 Age-related osteoporosis without current pathological fracture; E66.9 Obesity, unspecified; W01.0XXA Fall on same level from slipping, tripping and stumbling without subsequent striking against object, initial encounter; Y93.89 Activity, other specified; Y92.019 Unspecified place in single-family (private) house as the place of occurrence of the external cause; Y99.8 Other external cause status; Z95.1 Presence of aortocoronary bypass graft
CPT/HCPCS: 36415; 70450; 71045; 72100; 72128; 72131; 74018; 74177; 80048; 80053; 80061; 81001; 83036; 83690; 83735; 84100; 84439; 84443; 84484; 85025; 93005; 96374; 96375; 96376; 97110; 97116; 97161; 97530; G0378; J0360; J1650; J1885; J2270; J2405; J2765; J7030; L0456; L0472; Q9967

== ENCOUNTER 2018-09-19 14:21 | Inpatient (IN) | payer MEDICARE, OTHER ==
[~2018-09-19] VITALS: Ht 152.4 cm; Wt 89.9 kg
[~2018-09-19 14:21] MED LIST changes: -CELE100C85; -CLON-230; -ESCI10TA
[2018-09-19] MEDS ORDERED: KETOROLAC 30 MG INJ IV PRN (14:30)
[2018-09-19] MEDS ORDERED: HYDROCODONE/APAP (5/325) TAB PO PRN (14:30)
[2018-09-19 15:00] VITALS: BP 164/69; PULSE 75; RESP 16
[2018-09-19] MEDS ORDERED: BISACODYL (EC) 5 MG TAB PO PRN (15:00)
[2018-09-19] MEDS ORDERED: PENDING SANTYL ORDER FOR WOUND CARE XX PRN (15:00)
[2018-09-19] MEDS ORDERED: ACETAMINOPHEN 325 MG TAB PO PRN (15:00)
[2018-09-19] MEDS: KETOROLAC 30 MG INJ IV PRN (15:16)
[2018-09-19] MEDS: HYDROCODONE/APAP (5/325) TAB PO PRN ×2 (15:33→21:12)
[2018-09-19 20:00] VITALS: BP 150/67; PULSE 68; RESP 18
[2018-09-19] MEDS: ATORVASTATIN 40 MG TAB PO SCH (21:12)
[2018-09-19] MEDS: FAMOTIDINE 20 MG TAB PO SCH (21:12)
[2018-09-19] MEDS: LUBIPROSTONE 24 MCG CAP PO SCH (21:12)
[2018-09-19] MEDS: POLYETHYLENE GLYCOL 17 GM PACKET PO SCH (21:13)
[2018-09-19] MEDS: ATENOLOL 50 MG TAB PO SCH (21:13)
[2018-09-20 02:00] VITALS: BP 137/73; PULSE 70; RESP 18
[2018-09-20] MEDS: HYDROCODONE/APAP (5/325) TAB PO PRN ×3 (04:39→20:06)
[2018-09-20 07:00] VITALS: BP 192/86; PULSE 74; RESP 18
[2018-09-20] MEDS: KETOROLAC 30 MG INJ IV PRN (09:31)
[2018-09-20] MEDS: DULOXETINE 30 MG CAP DR PO SCH (09:39)
[2018-09-20] MEDS: POLYETHYLENE GLYCOL 17 GM PACKET PO SCH ×2 (09:39→20:06)
[2018-09-20] MEDS: FAMOTIDINE 20 MG TAB PO SCH ×2 (09:40→20:06)
[2018-09-20] MEDS: CALCIUM/VITAMIN D (500/200) TAB PO SCH (09:40)
[2018-09-20] MEDS: LUBIPROSTONE 24 MCG CAP PO SCH ×2 (09:40→20:06)
[2018-09-20] MEDS: ASPIRIN 81 MG TAB PO SCH (09:40)
[2018-09-20] MEDS: HYDROCHLOROTHIAZIDE 25 MG TAB PO SCH (09:40)
[2018-09-20] MEDS: LISINOPRIL 20 MG TAB PO SCH (09:41)
[2018-09-20] MEDS: AMLODIPINE 5 MG TAB PO SCH (09:42)
[2018-09-20] MEDS: ATENOLOL 50 MG TAB PO SCH ×2 (09:42→20:09)
[2018-09-20] MEDS: ENOXAPARIN 40 MG/0.4 ML SYG SC SCH (09:43)
[2018-09-20] MEDS ORDERED: BISACODYL 10 MG SUPP PR PRN (11:00)
[2018-09-20 14:00] VITALS: BP 140/65; PULSE 75; RESP 18
--- NOTE | 2018-09-20 15:38 | HP ---
Date/Time of Note Date/Time of Note DATE: 09/20/18 TIME: 15:38 Assessment/Plan VTE Prophylaxis Risk score (from Ns)>0 risk: 4 SCD applied (from [facility]): No SCD contraindicated: other Pharmacological prophylaxis: LMWH Lines/Catheters Urinary Cath still in place: No Assessment/Plan Hospital Course SUBJECTIVE: no acute episodes OBJECTIVE: Physical Exam General: Obese, no apparent distress. HEENT: Normocephalic, atraumatic. Eyes: Anicteric sclerae, conjunctivae clear. ENT: Nasal septum midline, oral mucosa moist. Neck: Short and obese. Respiratory: Bilaterally diminished breath sounds. No use of accessory muscles of respiration. No adventitious breath sounds. Cardiovascular: S1, S2 heard. Sternotomy scar. Regular rate and rhythm. Abdomen: Soft. Bowel sounds active in al four quadrants. Genitourinary: Deferred. Extremities: No cyanosis, no clubbing, no edema. Peripheral pulses palpable. Neurologic: Cranial nerves II through XII grossly intact. The patient is awake, alert, and oriented. ASSESSMENT & PLAN;77-year-old female w/CAD status post coronary artery bypass grafting, hypertension, dyslipidemia, osteoporosis, osteoarthritis, and obesity who had an unwitnessed fall,found to have mild compression fracture of the superior endplate of T12 vertebral body Mechanical fall w/Acute T12 vertebral body fracture. Pain control/PT/Rehab Hypertension -relatively stable. -Continue antihypertensives. CAD, status post coronary artery bypass grafting. -Continue aspirin/ beta-blockers/FAN inhibitors. Dyslipidemia. -Continue statins. Osteoporosis. -Continue calcium and vitamin D supplements. Obesity. -Lifestyle changes advised DVT prophylaxis. Subcutaneous Lovenox. Patient is stable enough to start rehab course at [facility] Approximately 60mins spent on this H&P The patient was seen in collaboration with Dr. Figueroa. Result Diagram: 09/20/18 0638 09/20/18 0638 Results 24hrs Laboratory Tests Test 09/19/18 16:10 09/20/18 06:38 Urine Color YELLOW Urine Clarity CLEAR Urine pH 7.0 Urine Specific [place] 1.009 Urine Ketones NEGATIVE Urine Nitrite NEGATIVE Urine Bilirubin NEGATIVE Urine Urobilinogen NEGATIVE Urine Leukocyte Esterase NEGATIVE Urine Microscopic RBC 2 Urine Microscopic WBC 0 Urine Squamous Epithelial Cells FEW Urine Bacteria FEW A Urine Hemoglobin 1+ H Urine Glucose NEGATIVE Urine Total Protein NEGATIVE White Blood Count 8.1 Red Blood Count 4.49 Hemoglobin 12.6 Hematocrit 39.1 Mean Corpuscular Volume 87.1 Mean Corpuscular Hemoglobin 28.1 L Mean Corpuscular Hemoglobin Concent 32.2 Red Cell Distribution Width 12.4 Platelet Count 279 Mean Platelet Volume 8.8 Immature Granulocytes % 0.400 Neutrophils % 57.7 Lymphocytes % 29.1 Monocytes % 10.6 Eosinophils % 1.8 Basophils % 0.4 Nucleated Red Blood Cells % 0.0 Immature Granulocytes # 0.030 Neutrophils # 4.7 Lymphocytes # 2.4 Monocytes # 0.9 Eosinophils # 0.2 Basophils # 0.0 Nucleated Red Blood Cells # 0.0 Sodium Level 137 Potassium Level 4.4 Chloride Level 95 L Carbon Dioxide Level 34 H Anion Gap 8 Blood Urea Nitrogen 14 Creatinine 0.62 Est Glomerular Filtrat Rate mL/min Glucose Level 108 Calcium Level 9.6 Total Bilirubin 0.6 Direct Bilirubin 0.00 Indirect Bilirubin 0.6 Aspartate Amino Transf (AST/SGOT) 21 Alanine Aminotransferase (ALT/SGPT) 26 Alkaline Phosphatase 49 Total Protein 6.5 Albumin 3.6 Globulin 2.90 Albumin/Globulin Ratio 1.24 HPI/ROS Admit Date/Time Admit Date/Time Sep 19, 2018 at 14:21 Hx of Present Illness This is a 77-year-old female with a history of coronary artery disease, status post CABG, hypertension, dyslipidemia, obesity, osteoporosis/osteoarthritis, who was admitted at [facility] on [facility] 14, 2018 with mechanical fall with resultant T12 vertebral body fracture. There was less than 20% of height loss with no significant retropulsion. Patient was treated with adequate pain control. She was then evaluated by physical therapy and a pa brace was placed for comfort with ambulation. Patient did not have any focal neurovascular deficit. Patient hospitalization was noted for ileus which responded to prokinetics. Patient was unable to tolerate diet and had regular b owel movements. Patient was continued on home medication for underlying comorbidities including coronary artery disease with CABG status. Patient was then accepted to acute rehabilitation unit for further inpatient rehabilitation. At my encounter with the patient, she denied chest pain, palpitation, shortness of breath, nausea, vomiting, abdominal pain, loss of consciousness, dizziness, numbness, fever, chills, diarrhea or other constitutional symptoms. Labs stable. Vital signs stable with one episode of elevated blood pressure documented early this morning 192/86 otherwise relatively stable blood pressure series. Creatinine no longer need to emergently have them on the ROS A 12 point review of system was assessed and is negative other than what is mentioned in HPI PMH/Family/Social Past Medical History See HPI Medications Current Medications Ketorolac Tromethamine (Toradol) 30 mg Q6H PRN IV PAIN LEVEL 1-3 Last administered on 09/20/18 09:31; Admin Dose 30 MG; Start 09/19/18 at 15:00; Stop 09/22/18 at 14:59 Miscellaneous Information (Pending Santyl Order For Wound Care) This patient ramirez... PRN PRN XX WOUND CARE; Start 09/19/18 at 15:00 Acetaminophen (Tylenol Tab) 650 mg Q6H PRN PO MILD PAIN(1-3)OR ELEVATED TEMP; Start 09/19/18 at 15:00 Amlodipine Besylate (Norvasc) 5 mg DAILY PO Last administered on 09/20/18 09:42; Admin Dose 5 MG; Start 09/20/18 at 09:00 Aspirin (Aspirin) 81 mg DAILY PO Last administered on 09/20/18 09:40; Admin Dose 81 MG; Start 09/20/18 at 09:00 Atenolol (Tenormin) 50 mg BID PO Last administered on 09/20/18 09:42; Admin Dose 50 MG; Start 09/19/18 at 21:00 Atorvastatin Calcium (Lipitor) 40 mg HS PO Last administered on 09/19/18at 21:12; Admin Dose 40 MG; Start 09/19/18 at 21:00 Bisacodyl (Dulcolax) 5 mg DAILY PRN PO CONSTIPATION; Start 09/19/18 at 15:00 Calcium/Vitamin D (Oyster Shell/ Vit-D (500/200)) 1 tab DAILY PO Last administered on 09/20/18 09:40; Admin Dose 1 TAB; Start 09/20/18 at 09:00 Duloxetine HCl (Cymbalta) 60 mg DAILY PO Last administered on 09/20/18 09:39; Admin Dose 60 MG; Start 09/20/18 at 09:00 Enoxaparin Sodium (Lovenox) 40 mg DAILY SC Last administered on 09/20/18 09:43; Admin Dose 40 MG; Start 09/20/18 at 09:00 Famotidine (Pepcid) 20 mg BID PO Last administered on 09/20/18at 09:40; Admin Dose 20 MG; Start 09/19/18 at 21:00 Hydrochlorothiazide (Hydrochlorothiazide) 25 mg DAILY PO Last administered on 09/20/18at 09:40; Admin Dose 25 MG; Start 09/20/18 at 09:00 Lisinopril (Zestril) 20 mg DAILY PO Last administered on 09/20/18at 09:41; Admin Dose 20 MG; Start 09/20/18 at 09:00 Lubiprostone (Amitiza) 24 mcg BID PO Last administered on 09/20/18at 09:40; Admin Dose 24 MCG; Start 09/19/18 at 21:00 Polyethylene Glycol (Miralax) 17 gm BID PO Last administered on 09/20/18at 09:39; Admin Dose 17 GM; Start 09/19/18 at 21:00 Bisacodyl (Dulcolax Supp) 10 mg DAILY PRN IN CONSTIPATION; Start 09/20/18 at 11:00 Docusate Sodium (Colace) 100 mg DAILY PO ; Start 09/21/18 at 09:00 Acetaminophen/ Hydrocodone Bitart ([place] (5/325)) 1 tab Q4 PRN PO MODERATE PAIN LEVEL 4-6; Start 09/20/18 at 15:30 Acetaminophen/ Hydrocodone Bitart ([place] (5/325)) 2 tab Q4H PRN PO SEVERE PAIN LEVEL 7-10; Start 09/20/18 at 15:30 Coded Allergies: No Known Allergy (Verified Allergy, Unknown, 06/26/06) Past Surgical History See HPI Family History Significant Family History: no pertinent family hx Social History Denied history of alcohol, smoking or illicit drug use. Smoking Status: Never smoker Exam/Review of Systems Vital Signs Vitals Vital Signs Date Temp Pulse Resp B/P (MAP) Pulse Ox O2 O2 Flow FiO2 Time Delivery Rate 09/20/18 98.4 74 18 192/86 90 Room Air 07:00 (121) Intake and Output 09/19/18 09/19/18 09/20/18 1515:00 23:00 07:00 IntakeIntake Total 320 ml OutputOutput Total 550 ml BalanceBalance -230 ml TUSHAR MANNING NP Sep 20, 2018 15:38
[2018-09-20 20:00] VITALS: BP 145/78; RESP 18
[2018-09-20] MEDS: ATORVASTATIN 40 MG TAB PO SCH (20:06)
--- NOTE | 2018-09-20 21:39 | CONS ---
DATE OF ADMISSION: 09/19/2018 DATE OF CONSULTATION: 09/20/2018 TYPE OF CONSULTATION: Rehabilitation postadmission physician evaluation. REHABILITATION IMPAIRMENT CATEGORY: Other orthopedic injury with T12 vertebral fracture. ACTIVE COMORBIDITIES: 1. Acute pain syndrome. 2. Status post ileus. 3. Hyperlipidemia. 4. Coronary artery disease with history of CABG. 5. Hypertension. 6. Impairments in self-care and mobility. HISTORY OF PRESENT ILLNESS: The patient is a 77-year-old female with comorbidities including coronar y artery disease and history of CABG, hypertension, hyperlipidemia, osteoarthritis, obesity, who is s tatus post a mechanical fall at home with resultant severe back pain and impairments in self-care and mobility. Workup did reveal a T12 vertebral body fracture. The patient was treated conservatively for her compression fracture. The patient's hospital course was complicated by ileus and the patient was followed closely by general surgery. The patient eventually had improvement in abdominal compla ints. The patient has been cleared to transfer to the rehabilitation unit for comprehensive interdis ciplinary rehab care. FUNCTIONAL HISTORY: Prior to recent events the patient was independent in self-care tasks and mobili ty. Currently, the patient requires moderate to minimal assist for self-care and mobility tasks. FAMILY AND SOCIAL HISTORY: The patient lives at home and hopes to return there upon discharge. PAST MEDICAL HISTORY: 1. Hypertension. 2. Coronary artery disease. 3. Hyperlipidemia. 4. Obesity. 5. Osteoporosis. 6. Osteoarthritis. CURRENT MEDICATIONS: 1. Norvasc 5 mg p.o. daily. 2. Aspirin 81 mg p.o. daily. 3. Tenormin 50 mg p.o. b.i.d. 4. Lipitor 40 mg p.o. at bedtime. 5. Oyster shell calcium 1 tab p.o. daily. 6. Cymbalta 60 mg p.o. daily. 7. Lovenox 40 mg subcutaneous daily. 8. Pepcid 20 mg p.o. b.i.d. 9. [place] p.r.n. 10. Toradol p.r.n. 11. Zestril 20 mg p.o. daily. 12. Amitiza 24 mcg p.o. b.i.d. ALLERGIES: THE PATIENT WITH NO KNOWN DRUG ALLERGIES. PHYSICAL EXAMINATION: VITAL SIGNS: The patient is currently afebrile with stable vital signs. HEENT: The extraocular motions are intact. Oropharynx is clear. NECK: Supple. LUNGS: Clear anteriorly. CARDIAC: S1, S2. ABDOMEN: Soft, nontender, positive bowel sounds. NEUROLOGIC: The patient is awake and alert and oriented x3. She can follow simple 1-step commands. She demonstrates antigravity strength in bilateral upper extremity and bilateral lower extremity. S he does have impaired dynamic balance. PLAN: The patient has been admitted for comprehensive interdisciplinary acute rehab and is anticipat ed to tolerate 3 hours of daily therapy in divided doses for at least 5/7 days a week. The treatment plan will include: 1. Physical therapy to focus on bed mobility, transfers, and household ambulation with the goal of h aving the patient reach a standby assist level. 2. Occupational therapy to focus on hygiene, grooming, dressing, bathing, and toileting activities w ith the goal of having the patient reach a standby assist level. 3. Rehabilitation nursing for carryover of therapeutic interventions, the goal of continent of bowel and bladder, and the goal of pain adequately managed on oral medications. REHABILITATION BARRIER: Pain. INTERVENTION FOR BARRIER: Interdisciplinary approach. ESTIMATED LENGTH OF STAY: 10 days. DISPOSITION GOAL: Home with family. I acknowledge that I performed a full physical examination on this patient within 24 hours of admissi on to the rehabilitation unit. I believe the patient is a good candidate for comprehensive interdisc iplinary rehab care and is anticipated to make reasonable goals in a reasonable period of time as out lined above. Dictated By: HARRY MO/PERLA Conf#: [id number] DID#: [id number]
[2018-09-21 02:00] VITALS: BP 133/73; PULSE 78; RESP 17
[2018-09-21] MEDS: HYDROCODONE/APAP (5/325) TAB PO PRN ×4 (04:20→21:59)
[2018-09-21 04:34] VITALS: BP 143/60; PULSE 69; RESP 18
[2018-09-21 07:30] VITALS: BP 161/92; PULSE 95; RESP 18
[2018-09-21] MEDS ORDERED: DOCUSATE SODIUM 100 MG CAP PO SCH (09:00)
[2018-09-21] MEDS: DULOXETINE 30 MG CAP DR PO SCH (09:43)
[2018-09-21] MEDS: FAMOTIDINE 20 MG TAB PO SCH ×2 (09:43→21:31)
[2018-09-21] MEDS: ASPIRIN 81 MG TAB PO SCH (09:43)
[2018-09-21] MEDS: CALCIUM/VITAMIN D (500/200) TAB PO SCH (09:43)
[2018-09-21] MEDS: LUBIPROSTONE 24 MCG CAP PO SCH ×2 (09:44→21:30)
[2018-09-21] MEDS: POLYETHYLENE GLYCOL 17 GM PACKET PO SCH (09:46)
[2018-09-21] MEDS: LISINOPRIL 20 MG TAB PO SCH (09:47)
[2018-09-21] MEDS: AMLODIPINE 5 MG TAB PO SCH (09:47)
[2018-09-21] MEDS: ATENOLOL 50 MG TAB PO SCH ×2 (09:48→21:31)
[2018-09-21] MEDS: HYDROCHLOROTHIAZIDE 25 MG TAB PO SCH (09:48)
[2018-09-21] MEDS: ENOXAPARIN 40 MG/0.4 ML SYG SC SCH (09:54)
[2018-09-21 14:00] VITALS: BP 132/62; PULSE 78; RESP 18
--- NOTE | 2018-09-21 14:47 | PN ---
Date/Time of Note Date/Time of Note DATE: 09/21/18 TIME: 14:46 Assessment/Plan VTE Prophylaxis Risk score (from Ns)>0 risk: 4 SCD applied (from Ns): Yes Pharmacological prophylaxis: LMWH Lines/Catheters Urinary Cath still in place: No Assessment/Plan Hospital Course SUBJECTIVE: Complains of constipation. OBJECTIVE: Physical Exam General: Obese, no apparent distress. HEENT: Normocephalic, atraumatic. Eyes: Anicteric sclerae, conjunctivae clear. ENT: Nasal septum midline, oral mucosa moist. Neck: Short and obese. Respiratory: Bilaterally diminished breath sounds. No use of accessory muscles of respiration. No adventitious breath sounds. Cardiovascular: S1, S2 heard. Sternotomy scar. Regular rate and rhythm. Abdomen: Soft. Bowel sounds active in al four quadrants. Genitourinary: Deferred. Extremities: No cyanosis, no clubbing, no edema. Peripheral pulses palpable. Neurologic: Cranial nerves II through XII grossly intact. The patient is awake, alert, and oriented. ASSESSMENT & PLAN;77-year-old female w/CAD status post coronary artery bypass g rafting, hypertension, dyslipidemia, osteoporosis, osteoarthritis, and obesity who had an unwitnessed fall,found to have mild compression fracture of the superior endplate of T12 vertebral body Mechanical fall w/Acute T12 vertebral body fracture. Pain control/PT/Rehab Hypertension -relatively stable. -Continue antihypertensives. CAD, status post coronary artery bypass grafting. -Continue aspirin/ beta-blockers/FAN inhibitors. Dyslipidemia. -Continue statins. Osteoporosis. -Continue calcium and vitamin D supplements. Obesity. -Lifestyle changes advised Constipation -Continue Amitiza -Add lactulose, Metamucil, senna/Colace DVT prophylaxis. Subcutaneous Lovenox. The patient was seen in collaboration with Dr. Figueroa. Result Diagram: 09/20/18 0638 09/20/18 0638 Exam/Review of Systems Exam Vitals Vital Signs Date Temp Pulse Resp B/P (MAP) Pulse Ox O2 O2 Flow FiO2 Time Delivery Rate 09/21/18 97.9 95 18 161/92 96 Room Air 07:30 (115) Intake and Output 09/20/18 09/20/18 09/21/18 1515:00 23:00 07:00 IntakeIntake Total 1600 ml OutputOutput Total 800 ml 3 ml BalanceBalance 800 ml -3 ml Medications Medication Current Medications Ketorolac Tromethamine (Toradol) 30 mg Q6H PRN IV PAIN LEVEL 1-3 Last administered on 09/20/18 09:31; Admin Dose 30 MG; Start 09/19/18 at 15:00; Stop 09/22/18 at 14:59 Miscellaneous Information (Pending Santyl Order For Wound Care) This patient ramirez... PRN PRN XX WOUND CARE; Start 09/19/18 at 15:00 Acetaminophen (Tylenol Tab) 650 mg Q6H PRN PO MILD PAIN(1-3)OR ELEVATED TEMP; Start 09/19/18 at 15:00 Amlodipine Besylate (Norvasc) 5 mg DAILY PO Last administered on 09/21/18 09:47; Admin Dose 5 MG; Start 09/20/18 at 09:00 Aspirin (Aspirin) 81 mg DAILY PO Last administered on 09/21/18 09:43; Admin Dose 81 MG; Start 09/20/18 at 09:00 Atenolol (Tenormin) 50 mg BID PO Last administered on 09/21/18 09:48; Admin Dose 50 MG; Start 09/19/18 at 21:00 Atorvastatin Calcium (Lipitor) 40 mg HS PO Last administered on 09/20/18 20:06; Admin Dose 40 MG; Start 09/19/18 at 21:00 Bisacodyl (Dulcolax) 5 mg DAILY PRN PO CONSTIPATION; Start 09/19/18 at 15:00 Calcium/Vitamin D (Oyster Shell/ Vit-D (500/200)) 1 tab DAILY PO Last administered on 09/21/18 09:43; Admin Dose 1 TAB; Start 09/20/18 at 09:00 Duloxetine HCl (Cymbalta) 60 mg DAILY PO Last administered on 09/21/18 09:43; Admin Dose 60 MG; Start 09/20/18 at 09:00 Enoxaparin Sodium (Lovenox) 40 mg DAILY SC Last administered on 09/21/18 09:54; Admin Dose 40 MG; Start 09/20/18 at 09:00 Famotidine (Pepcid) 20 mg BID PO Last administered on 09/21/18 09:43; Admin Dose 20 MG; Start 09/19/18 at 21:00 Hydrochlorothiazide (Hydrochlorothiazide) 25 mg DAILY PO Last administered on 09/21/18 09:48; Admin Dose 25 MG; Start 09/20/18 at 09:00 Lisinopril (Zestril) 20 mg DAILY PO Last administered on 09/21/18 09:47; Admin Dose 20 MG; Start 09/20/18 at 09:00 Lubiprostone (Amitiza) 24 mcg BID PO Last administered on 09/21/18 09:44; Admin Dose 24 MCG; Start 09/19/18 at 21:00 Polyethylene Glycol (Miralax) 17 gm BID PO Last administered on 09/21/18 09:46; Admin Dose 17 GM; Start 09/19/18 at 21:00 Bisacodyl (Dulcolax Supp) 10 mg DAILY PRN [place] CONSTIPATION; Start 09/20/18 at 11:00 Docusate Sodium (Colace) 100 mg DAILY PO Last administered on 09/21/18 09:43; Admin Dose 100 MG; Start 09/21/18 at 09:00 Acetaminophen/ Hydrocodone Bitart ([place] (5/325)) 1 tab Q4 PRN PO MODERATE PAIN LEVEL 4-6 Last administered on 09/21/18 10:37; Admin Dose 1 TAB; Start 09/20/18 at 15:30 Acetaminophen/ Hydrocodone Bitart ([place] (5/325)) 2 tab Q4H PRN PO SEVERE PAIN LEVEL 7-10; Start 09/20/18 at 15:30 TUSHAR MANNING NP Sep 21, 2018 14:47
[2018-09-21] MEDS ORDERED: SENNA TAB PO PRN (15:30)
[2018-09-21] MEDS ORDERED: ONDANSETRON 4 MG INJ IV PRN (15:30)
[2018-09-21] MEDS ORDERED: LACTULOSE 30ML CUP PO PRN (15:30)
--- NOTE | 2018-09-21 16:33 | PN ---
Date/Time of Note Date/Time of Note DATE: 09/21/18 TIME: 16:32 Subjective Comfortable Objective Vital Signs Date Temp Pulse Resp B/P (MAP) Pulse Ox O2 O2 Flow FiO2 Time Delivery Rate 09/21/18 97.9 95 18 161/92 96 Room Air 07:30 (115) Intake and Output 09/20/18 09/20/18 09/21/18 1515:00 23:00 07:00 IntakeIntake Total 1600 ml OutputOutput Total 800 ml 3 ml BalanceBalance 800 ml -3 ml Exam pulm-cta min ambulation Results/Medications Result Diagram: 09/20/18 0638 09/20/18637 Medications Current Medications Ketorolac Tromethamine (Toradol) 30 mg Q6H PRN IV PAIN LEVEL 1-3 Last admi nistered on 09/20/18at 09:31; Admin Dose 30 MG; Start 09/19/18 at 15:00; Stop 09/22/18 at 14:59 Miscellaneous Information (Pending [facility] Order For Wound Care) This patient ramirez... PRN PRN XX WOUND CARE; Start 09/19/18 at 15:00 Acetaminophen (Tylenol Tab) 650 mg Q6H PRN PO MILD PAIN(1-3)OR ELEVATED TEMP; Start 09/19/18 at 15:00 Amlodipine Besylate (Norvasc) 5 mg DAILY PO Last administered on 09/21/18at 09:47; Admin Dose 5 MG; Start 09/20/18 at 09:00 Aspirin (Aspirin) 81 mg DAILY PO Last administered on 09/21/18 09:43; Admin Dose 81 MG; Start 09/20/18 at 09:00 Atenolol (Tenormin) 50 mg BID PO Last administered on 09/21/18 09:48; Admin Dose 50 MG; Start 09/19/18 at 21:00 Atorvastatin Calcium (Lipitor) 40 mg HS PO Last administered on 09/20/18at 20:06; Admin Dose 40 MG; Start 09/19/18 at 21:00 Bisacodyl (Dulcolax) 5 mg DAILY PRN PO CONSTIPATION; Start 09/19/18 at 15:00 Calcium/Vitamin D (Oyster Shell/ Vit-D (500/200)) 1 tab DAILY PO Last administered on 09/21/18 09:43; Admin Dose 1 TAB; Start 09/20/18 at 09:00 Duloxetine HCl (Cymbalta) 60 mg DAILY PO Last administered on 09/21/18 09:43; Admin Dose 60 MG; Start 09/20/18 at 09:00 Enoxaparin Sodium (Lovenox) 40 mg DAILY SC Last administered on 09/21/18 09:54; Admin Dose 40 MG; Start 09/20/18 at 09:00 Famotidine (Pepcid) 20 mg BID PO Last administered on 09/21/18 09:43; Admin Dose 20 MG; Start 09/19/18 at 21:00 Hydrochlorothiazide (Hydrochlorothiazide) 25 mg DAILY PO Last administered on 09/21/18 09:48; Admin Dose 25 MG; Start 09/20/18 at 09:00 Lisinopril (Zestril) 20 mg DAILY PO Last administered on 09/21/18 09:47; Admin Dose 20 MG; Start 09/20/18 at 09:00 Lubiprostone (Amitiza) 24 mcg BID PO Last administered on 09/21/18 09:44; Admin Dose 24 MCG; Start 09/19/18 at 21:00 Bisacodyl (Dulcolax Supp) 10 mg DAILY PRN [place] CONSTIPATION; Start 09/20/18 at 11:00 Acetaminophen/ Hydrocodone Bitart ([place] (5/325)) 1 tab Q4 PRN PO MODERATE PAIN LEVEL 4-6 Last administered on 09/21/18 10:37; Admin Dose 1 TAB; Start 09/20/18 at 15:30 Acetaminophen/ Hydrocodone Bitart ([place] (5/325)) 2 tab Q4H PRN PO SEVERE PAIN LEVEL 7-10 Last administered on 09/21/18 16:23; Admin Dose 2 TAB; Start 09/20/18 at 15:30 Senna (Senokot) 2 tab BID PRN PO CONSTIPATION; Start 09/21/18 at 15:30 Psyllium Hydrophilic Mucilloid (Metamucil) 1 pkt BID PO ; Start 09/21/18 at 21:00 Lactulose (Enulose) 20 gm BID PRN PO CONSTIPATION; Start 09/21/18 at 15:30 Ondansetron HCl (Zofran Inj) 4 mg Q6H PRN IV NAUSEA AND/OR VOMITING; Start 09/21/18 at 15:30 Docusate Sodium (Colace) 250 mg BID PO ; Start 09/21/18 at 21:00 Assessment/Plan Additional Assessment/Plan Rehab- Other orthopedic injury with T12 vertebral fracture. Progress, continue rehab Acute pain syndrome. Status post ileus. Hyperlipidemia. Coronary artery disease with history of CABG. Hypertension. HARRY MILLER MD Sep 21, 2018 16:33
[2018-09-21 20:42] VITALS: BP 151/69; PULSE 74; RESP 18
[2018-09-21] MEDS: PSYLLIUM 28% PACKET PO SCH (21:30)
[2018-09-21] MEDS: DOCUSATE SODIUM 250 MG CAP PO SCH (21:30)
[2018-09-21] MEDS: ATORVASTATIN 40 MG TAB PO SCH (21:30)
[2018-09-22 03:48] VITALS: BP 148/56; PULSE 72; RESP 18
[2018-09-22] MEDS: HYDROCODONE/APAP (5/325) TAB PO PRN ×3 (05:03→18:40)
[2018-09-22 07:30] VITALS: BP 133/85; PULSE 68; RESP 20
[2018-09-22] MEDS: ENOXAPARIN 40 MG/0.4 ML SYG SC SCH (09:33)
[2018-09-22] MEDS: ATENOLOL 50 MG TAB PO SCH ×2 (09:34→20:52)
[2018-09-22] MEDS: PSYLLIUM 28% PACKET PO SCH ×2 (09:35→20:52)
[2018-09-22] MEDS: HYDROCHLOROTHIAZIDE 25 MG TAB PO SCH (09:35)
[2018-09-22] MEDS: FAMOTIDINE 20 MG TAB PO SCH ×2 (09:36→20:51)
[2018-09-22] MEDS: LISINOPRIL 20 MG TAB PO SCH (09:36)
[2018-09-22] MEDS: DOCUSATE SODIUM 250 MG CAP PO SCH ×2 (09:36→20:52)
[2018-09-22] MEDS: ASPIRIN 81 MG TAB PO SCH (09:36)
[2018-09-22] MEDS: LUBIPROSTONE 24 MCG CAP PO SCH ×2 (09:36→20:51)
[2018-09-22] MEDS: CALCIUM/VITAMIN D (500/200) TAB PO SCH (09:36)
[2018-09-22] MEDS: DULOXETINE 30 MG CAP DR PO SCH (09:36)
[2018-09-22] MEDS: AMLODIPINE 5 MG TAB PO SCH (09:37)
--- NOTE | 2018-09-22 12:26 | PN ---
Date/Time of Note Date/Time of Note DATE: 09/22/18 TIME: 12:25 Assessment/Plan VTE Prophylaxis Risk score (from Ns)>0 risk: 4 SCD applied (from Ns): Yes Pharmacological prophylaxis: LMWH Lines/Catheters Urinary Cath still in place: No Assessment/Plan Hospital Course SUBJECTIVE: no BM OBJECTIVE: Physical Exam General: Obese, no apparent distress. HEENT: Normocephalic, atraumatic. Eyes: Anicteric sclerae, conjunctivae clear. ENT: Nasal septum midline, oral mucosa moist. Neck: Short and obese. Respiratory: Bilaterally diminished breath sounds. No use of accessory muscles of respiration. No adventitious breath sounds. Cardiovascular: S1, S2 heard. Sternotomy scar. Regular rate and rhythm. Abdomen: Soft. Bowel sounds active in al four quadrants. Genitourinary: Deferred. Extremities: No cyanosis, no clubbing, no edema. Peripheral pulses palpable. Neurologic: Cranial nerves II through XII grossly intact. The patient is awake, alert, and oriented. ASSESSMENT & PLAN;77-year-old female w/CAD status post coronary artery bypass grafting, hypertension, dyslipidemia, osteoporosis, osteoarthritis, and obesity who had an unwitnessed fall,found to have mild compression fracture of the superior endplate of T12 vertebral body Mechanical fall w/Acute T12 vertebral body fracture. Pain control/PT/Rehab Hypertension -relatively stable. -Continue antihypertensives. CAD, status post coronary artery bypass grafting. -Continue aspirin/ beta-blockers/FAN inhibitors. Dyslipidemia. -Continue statins. Osteoporosis. -Continue calcium and vitamin D supplements. Obesity. -Lifestyle changes advised Constipation -Continue Amitiza -Add lactulose, Metamucil, senna/Colace -Mag citratex1 dose DVT prophylaxis. Lovenox. The patient was seen in collaboration with Dr. Figueroa. Result Diagram: 09/20/18 0638 09/20/18 0638 Exam/Review of Systems Exam Vitals Vital Signs Date Temp Pulse Resp B/P (MAP) Pulse Ox O2 O2 Flow FiO2 Time Delivery Rate 09/22/18 98.1 68 20 133/85 95 Room Air 07:30 (101) Intake and Output 09/21/18 09/21/18 09/22/18 1515:00 23:00 07:00 IntakeIntake Total 1490 ml 1450 ml BalanceBalance 1490 ml 1450 ml Medications Medication Current Medications Ketorolac Tromethamine (Toradol) 30 mg Q6H PRN IV PAIN LEVEL 1-3 Last administered on 09/20/18 09:31; Admin Dose 30 MG; Start 09/19/18 at 15:00; Stop 09/22/18 at 14:59 Miscellaneous Information (Pending Santyl Order For Wound Care) This patient ramirez... PRN PRN XX WOUND CARE; Start 09/19/18 at 15:00 Acetaminophen (Tylenol Tab) 650 mg Q6H PRN PO MILD PAIN(1-3)OR ELEVATED TEMP; Start 09/19/18 at 15:00 Amlodipine Besylate (Norvasc) 5 mg DAILY PO Last administered on 09/22/18 09:37; Admin Dose 5 MG; Start 09/20/18 at 09:00 Aspirin (Aspirin) 81 mg DAILY PO Last administered on 09/22/18 09:36; Admin Dose 81 MG; Start 09/20/18 at 09:00 Atenolol (Tenormin) 50 mg BID PO Last administered on 09/22/18 09:34; Admin D ose 50 MG; Start 09/19/18 at 21:00 Atorvastatin Calcium (Lipitor) 40 mg HS PO Last administered on 09/21/18 21:30; Admin Dose 40 MG; Start 09/19/18 at 21:00 Bisacodyl (Dulcolax) 5 mg DAILY PRN PO CONSTIPATION; Start 09/19/18 at 15:00 Calcium/Vitamin D (Oyster Shell/ Vit-D (500/200)) 1 tab DAILY PO Last administered on 09/22/18 09:36; Admin Dose 1 TAB; Start 09/20/18 at 09:00 Duloxetine HCl (Cymbalta) 60 mg DAILY PO Last administered on 09/22/18 09:36; Admin Dose 60 MG; Start 09/20/18 at 09:00 Enoxaparin Sodium (Lovenox) 40 mg DAILY SC Last administered on 09/22/18 09:33; Admin Dose 40 MG; Start 09/20/18 at 09:00 Famotidine (Pepcid) 20 mg BID PO Last administered on 09/22/18 09:36; Admin Dose 20 MG; Start 09/19/18 at 21:00 Hydrochlorothiazide (Hydrochlorothiazide) 25 mg DAILY PO Last administered on 09/22/18 09:35; Admin Dose 25 MG; Start 09/20/18 at 09:00 Lisinopril (Zestril) 20 mg DAILY PO Last administered on 09/22/18 09:36; Admin Dose 20 MG; Start 09/20/18 at 09:00 Lubiprostone (Amitiza) 24 mcg BID PO Last administered on 09/22/18 09:36; Admin Dose 24 MCG; Start 09/19/18 at 21:00 Bisacodyl (Dulcolax Supp) 10 mg DAILY PRN [place] CONSTIPATION; Start 09/20/18 at 11:00 Acetaminophen/ Hydrocodone Bitart ([place] (5/325)) 1 tab Q4 PRN PO MODERATE PAIN LEVEL 4-6 Last administered on 09/22/18 05:03; Admin Dose 1 TAB; Start 09/20/18 at 15:30 Acetaminophen/ Hydrocodone Bitart ([place] (5/325)) 2 tab Q4H PRN PO SEVERE PAIN LEVEL 7-10 Last administered on 09/22/18 09:34; Admin Dose 2 TAB; Start 09/20/18 at 15:30 Senna (Senokot) 2 tab BID PRN PO CONSTIPATION; Start 09/21/18 at 15:30 Psyllium Hydrophilic Mucilloid (Metamucil) 1 pkt BID PO Last administered on 09/22/18 09:35; Admin Dose 1 PKT; Start 09/21/18 at 21:00 Lactulose (Enulose) 20 gm BID PRN PO CONSTIPATION Last administered on 09/22/18 09:33; Admin Dose 20 GM; Start 09/21/18 at 15:30 Ondansetron HCl (Zofran Inj) 4 mg Q6H PRN IV NAUSEA AND/OR VOMITING; Start 09/21/18 at 15:30 Docusate Sodium (Colace) 250 mg BID PO Last administered on 09/22/18 09:36; Admin Dose 250 MG; Start 09/21/18 at 21:00 TUSHAR MANNING NP Sep 22, 2018 12:26
[2018-09-22 14:00] VITALS: BP 119/69; PULSE 78; RESP 20
--- NOTE | 2018-09-22 14:21 | PN ---
Date/Time of Note Date/Time of Note DATE: 09/22/18 TIME: 14:20 Subjective Overall improved Objective Vital Signs Date Temp Pulse Resp B/P (MAP) Pulse Ox O2 O2 Flow FiO2 Time Delivery Rate 09/22/18 98.1 68 20 133/85 95 Room Air 07:30 (101) Intake and Output 09/21/18 09/21/18 09/22/18 1515:00 23:00 07:00 IntakeIntake Total 1490 ml 1450 ml BalanceBalance 1490 ml 1450 ml Exam pulm-cta abd-soft cga ambulation 150 feet Results/Medications Result Diagram: 09/20/1838 09/20/18 06 Medications Current Medications Ketorolac Tromethamine (Toradol) 30 mg Q6H PRN IV PAIN LEVEL 1-3 Last administered on 09/20/18at 09:31; Admin Dose 30 MG; Start 09/19/18 at 15:00; Stop 09/22/18 at 14:59 Miscellaneous Information (Pending [facility] Order For Wound Care) This patient ramirez... PRN PRN XX WOUND CARE; Start 09/19/18 at 15:00 Acetaminophen (Tylenol Tab) 650 mg Q6H PRN PO MILD PAIN(1-3)OR ELEVATED TEMP; Start 09/19/18 at 15:00 Amlodipine Besylate (Norvasc) 5 mg DAILY PO Last administered on 09/22/18at 09:37; Admin Dose 5 MG; Start 09/20/18 at 09:00 Aspirin (Aspirin) 81 mg DAILY PO Last administered on 09/22/18 09:36; Admin Dose 81 MG; Start 09/20/18 at 09:00 Atenolol (Tenormin) 50 mg BID PO Last administered on 09/22/18 09:34; Admin Dose 50 MG; Start 09/19/18 at 21:00 Atorvastatin Calcium (Lipitor) 40 mg HS PO Last administered on 09/21/18at 21:30; Admin Dose 40 MG; Start 09/19/18 at 21:00 Bisacodyl (Dulcolax) 5 mg DAILY PRN PO CONSTIPATION; Start 09/19/18 at 15:00 Calcium/Vitamin D (Oyster Shell/ Vit-D (500/200)) 1 tab DAILY PO Last administered on 09/22/18at 09:36; Admin Dose 1 TAB; Start 09/20/18 at 09:00 Duloxetine HCl (Cymbalta) 60 mg DAILY PO Last administered on 09/22/18 09:36; Admin Dose 60 MG; Start 09/20/18 at 09:00 Enoxaparin Sodium (Lovenox) 40 mg DAILY SC Last administered on 09/22/18 09:33; Admin Dose 40 MG; Start 09/20/18 at 09:00 Famotidine (Pepcid) 20 mg BID PO Last administered on 09/22/18 09:36; Admin Dose 20 MG; Start 09/19/18 at 21:00 Hydrochlorothiazide (Hydrochlorothiazide) 25 mg DAILY PO Last administered on 09/22/18 09:35; Admin Dose 25 MG; Start 09/20/18 at 09:00 Lisinopril (Zestril) 20 mg DAILY PO Last administered on 09/22/18 09:36; Admin Dose 20 MG; Start 09/20/18 at 09:00 Lubiprostone (Amitiza) 24 mcg BID PO Last administered on 09/22/18 09:36; Admin Dose 24 MCG; Start 09/19/18 at 21:00 Bisacodyl (Dulcolax Supp) 10 mg DAILY PRN [place] CONSTIPATION; Start 09/20/18 at 11:00 Acetaminophen/ Hydrocodone Bitart ([place] (5/325)) 1 tab Q4 PRN PO MODERATE PAIN LEVEL 4-6 Last administered on 09/22/18 05:03; Admin Dose 1 TAB; Start 09/20/18 at 15:30 Acetaminophen/ Hydrocodone Bitart ([place] (5/325)) 2 tab Q4H PRN PO SEVERE PAIN LEVEL 7-10 Last administered on 09/22/18 09:34; Admin Dose 2 TAB; Start 09/20/18 at 15:30 Senna (Senokot) 2 tab BID PRN PO CONSTIPATION; Start 09/21/18 at 15:30 Psyllium Hydrophilic Mucilloid (Metamucil) 1 pkt BID PO Last administered on 09/22/18 09:35; Admin Dose 1 PKT; Start 09/21/18 at 21:00 Lactulose (Enulose) 20 gm BID PRN PO CONSTIPATION Last administered on 7/31/19at 09:33; Admin Dose 20 GM; Start 09/21/18 at 15:30 Ondansetron HCl (Zofran Inj) 4 mg Q6H PRN IV NAUSEA AND/OR VOMITING; Start 09/21/18 at 15:30 Docusate Sodium (Colace) 250 mg BID PO Last administered on 09/22/18at 09:36; Admin Dose 250 MG; Start 09/21/18 at 21:00 Magnesium Citrate (Citroma) 300 ml NOW ONCE PO ; Start 09/22/18 at 14:30; Stop 09/22/18 at 14:31 Assessment/Plan Additional Assessment/Plan Rehab- Other orthopedic injury with T12 vertebral fracture. Steady progress with rehab. Pain is a barrier, but managed on current medications. Acute pain syndrome. Status post ileus. Hyperlipidemia. Coronary artery disease with history of CABG. Hypertension. HARRY MILLER MD Sep 22, 2018 14:21
[2018-09-22] MEDS ORDERED: MAGNESIUM CITRATE 300 ML BTL PO ONE (14:30)
[2018-09-22] MEDS ORDERED: ONDANSETRON (ODT) 4 MG TAB ODT STA (16:18)
[2018-09-22] MEDS ORDERED: ONDANSETRON (ODT) 4 MG TAB ODT PRN (16:30)
[2018-09-22] MEDS: METOCLOPRAMIDE 5 MG TAB PO SCH (17:35)
[2018-09-22] MEDS ORDERED: METOCLOPRAMIDE 10 MG INJ IV SCH (18:00)
[2018-09-22 20:14] VITALS: BP 125/61; PULSE 75; RESP 18
[2018-09-22] MEDS: ATORVASTATIN 40 MG TAB PO SCH (20:51)
[2018-09-22] MEDS: SENNA TAB PO SCH (20:53)
[2018-09-23] MEDS: HYDROCODONE/APAP (5/325) TAB PO PRN ×4 (01:02→22:15)
[2018-09-23 02:00] VITALS: BP 134/70; PULSE 72; RESP 18
--- NOTE | 2018-09-23 06:25 | CONS ---
DATE OF ADMISSION: 09/19/2018 DATE OF CONSULTATION: 09/22/2018 TYPE OF CONSULTATION: Psychological. REFERRING PHYSICIAN: Harry Mann MD. CONSULTING PSYCHOLOGIST: Carlitos Verma, PhD. REASON FOR CONSULTATION: This consultation was current dose requested by Dr. Dickson Mann in order to evaluate the cognitive and emotional functioning of this patient related to her present medical co ndition. HISTORY OF PRESENT ILLNESS: The patient is a 77-year-old female. The patient has numerous medical p roblems including coronary artery disease, a history of coronary artery bypass graft, hypertension, h yperlipidemia, osteoarthritis, and obesity. The patient had a fall at home and resulted in severe ba ck pain and impairments of her ability to care for herself and her ability to walk. The patient's wo rkup did reveal a T12 vertebral body fracture. The patient presently is in a great deal of pain and when seen in her wheelchair was in tears. The patient is requesting pain medications. The patient's family reportedly wants her to be on as little pain medications as possible. The patient is motivat ed to get better and does want to get out of the hospital as soon as possible. FAMILY AND SOCIAL HISTORY: The patient says she lives in [place] with a care provider. She could not provide much other detail than that. The patient's Faroese is adequate, but she is better in Serbian. Interview was done in Faroese. MEDICATIONS: The patient is currently on Cymbalta 60 mg daily. SUBSTANCE USE: The patient denies any use of alcohol or drugs. The patient reports that she does no t smoke. MENTAL STATUS EXAMINATION: APPEARANCE: The patient was seen in her wheelchair. She was of average height and obese. The patie nt was in pain and crying during the consultation. The patient was asking for pain medications. BEHAVIOR: The patient was cooperative during the consultation. The patient did attempt to answer al l questions presented to her by the interviewer. The patient's Faroese was not good, but she was abl e to understand the questions presented to her and was able to answer most of them adequately. MOOD AND AFFECT: The patient's mood appears to be depressed. Affect does appear to be anxious. PERCEPTION: The patient reports no hallucinations or delusions. The patient was alert to person, pl david, situation and time. MEMORY AND COGNITION: The patient's memory and cognition appear to be basically intact. She was abl e to remember the issues in regard to her fall and she was mainly discussing her issues with pain. INTELLIGENCE: Intelligence appears to fall in the average range. INSIGHT: Fair. JUDGMENT: Fair. THOUGHT CONTENT: The patient is concerned about her present medical condition. The patient is tearf ul and in pain. The patient wants to recover and return home as soon as possible. DISCUSSION: The patient may be able to benefit from some cognitive/behavioral psychotherapy while christelle is on the unit. Psychotherapy would focus on her underlying frustration about her medical problems and her present issues with the pain and incapacity it is causing her. DIAGNOSTIC IMPRESSION: F33.1, major depressive disorder, recurrent, moderate. Thank you very much, Dr. Dickson Mann, for referring this individual. Please do not hesitate to bee guillaume if you have additional questions. Dictated By: CARLITOS VERMA PHD GLORIA/PERLA Conf#: [id number] DID#: [id number] CC: HARRY MANN MD;*End*
[2018-09-23 07:57] VITALS: BP 116/70; PULSE 88; RESP 18
[2018-09-23] MEDS: METOCLOPRAMIDE 5 MG TAB PO SCH ×2 (08:16→12:00)
[2018-09-23] MEDS: ASPIRIN 81 MG TAB PO SCH (08:23)
[2018-09-23] MEDS: DULOXETINE 30 MG CAP DR PO SCH (08:23)
[2018-09-23] MEDS: CALCIUM/VITAMIN D (500/200) TAB PO SCH (08:23)
[2018-09-23] MEDS: FAMOTIDINE 20 MG TAB PO SCH ×2 (08:23→22:10)
[2018-09-23] MEDS: ENOXAPARIN 40 MG/0.4 ML SYG SC SCH (08:24)
[2018-09-23] MEDS: LIDOCAINE 5% PATCH TD SCH (08:26)
[2018-09-23] MEDS: LISINOPRIL 20 MG TAB PO SCH (08:27)
[2018-09-23] MEDS: AMLODIPINE 5 MG TAB PO SCH (08:27)
[2018-09-23] MEDS: ATENOLOL 50 MG TAB PO SCH ×2 (08:27→22:11)
[2018-09-23] MEDS: HYDROCHLOROTHIAZIDE 25 MG TAB PO SCH (08:28)
[2018-09-23] MEDS: DOCUSATE SODIUM 250 MG CAP PO SCH ×2 (09:00→22:10)
[2018-09-23] MEDS: LUBIPROSTONE 24 MCG CAP PO SCH ×2 (09:00→22:10)
[2018-09-23] MEDS: PSYLLIUM 28% PACKET PO SCH ×2 (09:00→21:00)
--- NOTE | 2018-09-23 13:21 | PN ---
Date/Time of Note Date/Time of Note DATE: 09/23/18 TIME: 13:20 Objective Vital Signs Date Temp Pulse Resp B/P (MAP) Pulse Ox O2 O2 Flow FiO2 Time Delivery Rate 09/23/18 98.3 88 18 116/70 94 Room Air 07:57 (85) Intake and Output 09/22/18 09/22/18 09/23/18 1515:00 23:00 07:00 IntakeIntake Total 300 ml 620 ml 850 ml BalanceBalance 300 ml 620 ml 850 ml Exam INTERDISCIPLINARY TEAM CONFERENCE Attended by PT, OT, ST, Social Work, Rehabilitation Nursing, Field Control Inspector an d Senior Solutions ArchitectPigment Pumper Exam: Pulm- cta Abd-soft BOWEL- Cont BLADDER-Cont SKIN- improving OT- DRESSING- sba/min BATHING-sba/min TOILETING-min PT- BED MOBILITY- cga TRANSFERS-cga AMBULATION-cga/sba 200 feet A/P- Interdisciplinary team conference held today. Please see interdisciplinary sheet. Working toward d.c. on 09/29 with post discharge follow up of physical therapy, occupational therapy. Results/Medications Result Diagram: 09/20/18 0638 09/20/18 0638 Medications Current Medications Miscellaneous Information (Pending Santyl Order For Wound Care) This patient ramirez... PRN PRN XX WOUND CARE; Start 09/19/18 at 15:00 Acetaminophen (Tylenol Tab) 650 mg Q6H PRN PO MILD PAIN(1-3)OR ELEVATED TEMP; Start 09/19/18 at 15:00 Amlodipine Besylate (Norvasc) 5 mg DAILY PO Last administered on 09/23/18at 08:27; Admin Dose 5 MG; Start 09/20/18 at 09:00 Aspirin (Aspirin) 81 mg DAILY PO Last administered on 09/23/18at 08:23; Admin Dose 81 MG; Start 09/20/18 at 09:00 Atenolol (Tenormin) 50 mg BID PO Last administered on 09/23/18at 08:27; Admin Dose 50 MG; Start 09/19/18 at 21:00 Atorvastatin Calcium (Lipitor) 40 mg HS PO Last administered on 09/22/18at 20:51; Admin Dose 40 MG; Start 09/19/18 at 21:00 Bisacodyl (Dulcolax) 5 mg DAILY PRN PO CONSTIPATION; Start 09/19/18 at 15:00 Calcium/Vitamin D (Oyster Shell/ Vit-D (500/200)) 1 tab DAILY PO Last administered on 09/23/18 08:23; Admin Dose 1 TAB; Start 09/20/18 at 09:00 Duloxetine HCl (Cymbalta) 60 mg DAILY PO Last administered on 09/23/18 08:23; Admin Dose 60 MG; Start 09/20/18 at 09:00 Enoxaparin Sodium (Lovenox) 40 mg DAILY SC Last administered on 09/23/18 08:24; Admin Dose 40 MG; Start 09/20/18 at 09:00 Famotidine (Pepcid) 20 mg BID PO Last administered on 09/23/18 08:23; Admin Dose 20 MG; Start 09/19/18 at 21:00 Hydrochlorothiazide (Hydrochlorothiazide) 25 mg DAILY PO Last administered on 09/23/18 08:28; Admin Dose 25 MG; Start 09/20/18 at 09:00 Lisinopril (Zestril) 20 mg DAILY PO Last administered on 09/23/18 08:27; Admin Dose 20 MG; Start 09/20/18 at 09:00 Lubiprostone (Amitiza) 24 mcg BID PO Last administered on 09/22/18 20:51; Admin Dose 24 MCG; Start 09/19/18 at 21:00 Bisacodyl (Dulcolax Supp) 10 mg DAILY PRN [place] CONSTIPATION; Start 09/20/18 at 11:00 Acetaminophen/ Hydrocodone Bitart ([place] (5/325)) 1 tab Q4 PRN PO MODERATE PAIN LEVEL 4-6 Last administered on 09/23/18 08:20; Admin Dose 1 TAB; Start 09/20/18 at 15:30 Acetaminophen/ Hydrocodone Bitart ([place] (5/325)) 2 tab Q4H PRN PO SEVERE PAIN LEVEL 7-10 Last administered on 09/22/18 09:34; Admin Dose 2 TAB; Start 09/20/18 at 15:30 Psyllium Hydrophilic Mucilloid (Metamucil) 1 pkt BID PO Last administered on 09/22/18 09:35; Admin Dose 1 PKT; Start 09/21/18 at 21:00 Lactulose (Enulose) 20 gm BID PRN PO CONSTIPATION Last administered on 09/22/18at 09:33; Admin Dose 20 GM; Start 09/21/18 at 15:30 Docusate Sodium (Colace) 250 mg BID PO Last administered on 09/22/18at 09:36; Admin Dose 250 MG; Start 09/21/18 at 21:00 Ondansetron HCl (Zofran Odt) 8 mg Q6H PRN ODT NAUSEA; Start 09/22/18 at 16:30 Senna (Senokot) 1 tab QHS PO ; Start 09/22/18 at 21:00 Lidocaine (Lidoderm) 1 patch DAILY TD Last administered on 09/23/18at 08:26; Admin Dose 1 PATCH; Start 09/23/18 at 09:00 Senna (Senokot) 2 tab BID PO ; Start 09/23/18 at 21:00 HARRY MILLER MD Sep 23, 2018 13:21
--- NOTE | 2018-09-23 13:48 | PN ---
Date/Time of Note Date/Time of Note DATE: 09/23/18 TIME: 13:47 Assessment/Plan VTE Prophylaxis Risk score (from Ns)>0 risk: 5 SCD applied (from Ns): Yes Pharmacological prophylaxis: LMWH Lines/Catheters Urinary Cath still in place: No Assessment/Plan Hospital Course SUBJECTIVE: Had BM yesterday OBJECTIVE: Physical Exam General: Obese, no apparent distress. HEENT: Normocephalic, atraumatic. Eyes: Anicteric sclerae, conjunctivae clear. ENT: Nasal septum midline, oral mucosa moist. Neck: Short and obese. Respiratory: Bilaterally diminished breath sounds. No use of accessory muscles of respiration. No adventitious breath sounds. Cardiovascular: S1, S2 heard. Sternotomy scar. Regular rate and rhythm. Abdomen: Soft. Bowel sounds active in al four quadrants. Genitourinary: Deferred. Extremities: No cyanosis, no clubbing, no edema. Peripheral pulses palpable. Neurologic: Cranial nerves II through XII grossly intact. The patient is awake, alert, and oriented. ASSESSMENT & PLAN;77-year-old female w/CAD status post coronary artery bypass grafting, hypertension, dyslipidemia, osteoporosis, osteoarthritis, and obesity who had an unwitnessed fall,found to have mild compression fracture of the superior endplate of T12 vertebral body Mechanical fall w/Acute T12 vertebral body fracture. Pain control/PT/Rehab Hypertension -relatively stable. -Continue antihypertensives. CAD, status post coronary artery bypass grafting. -Continue aspirin/ beta-blockers/FAN inhibitors. Dyslipidemia. -Continue statins. Osteoporosis. -Continue calcium and vitamin D supplements. Obesity. -Lifestyle changes advised Constipation -had BM -Continue Amitiza/ Metamucil, senna/Colace DVT prophylaxis. Lovenox. The patient was seen in collaboration with Dr. Figueroa. Result Diagram: 09/20/1838 09/20/18 0638 Exam/Review of Systems Exam Vitals Vital Signs Date Temp Pulse Resp B/P (MAP) Pulse Ox O2 O2 Flow FiO2 Time Delivery Rate 09/23/18 98.3 88 18 116/70 94 Room Air 07:57 (85) Intake and Output 09/22/18 09/22/18 09/23/18 1515:00 23:00 07:00 IntakeIntake Total 300 ml 620 ml 850 ml BalanceBalance 300 ml 620 ml 850 ml Medications Medication Current Medications Miscellaneous Information (Pending Santyl Order For Wound Care) This patient ramirez... PRN PRN XX WOUND CARE; Start 09/19/18 at 15:00 Acetaminophen (Tylenol Tab) 650 mg Q6H PRN PO MILD PAIN(1-3)OR ELEVATED TEMP; Start 09/19/18 at 15:00 Amlodipine Besylate (Norvasc) 5 mg DAILY PO Last administered on 09/23/18 08:27; Admin Dose 5 MG; Start 09/20/18 at 09:00 Aspirin (Aspirin) 81 mg DAILY PO Last administered on 09/23/18 08:23; Admin Dose 81 MG; Start 09/20/18 at 09:00 Atenolol (Tenormin) 50 mg BID PO Last administered on 09/23/18 08:27; Admin Dose 50 MG; Start 09/19/18 at 21:00 Atorvastatin Calcium (Lipitor) 40 mg HS PO Last administered on 09/22/18 20:51; Admin Dose 40 MG; Start 09/19/18 at 21:00 Bisacodyl (Dulcolax) 5 mg DAILY PRN PO CONSTIPATION; Start 09/19/18 at 15:00 Calcium/Vitamin D (Oyster Shell/ Vit-D (500/200)) 1 tab DAILY PO Last administered on 09/23/18 08:23; Admin Dose 1 TAB; Start 09/20/18 at 09:00 Duloxetine HCl (Cymbalta) 60 mg DAILY PO Last administered on 09/23/18 08:23; Admin Dose 60 MG; Start 09/20/18 at 09:00 Enoxaparin Sodium (Lovenox) 40 mg DAILY SC Last administered on 09/23/18 08:24; Admin Dose 40 MG; Start 09/20/18 at 09:00 Famotidine (Pepcid) 20 mg BID PO Last administered on 09/23/18 08:23; Admin Dose 20 MG; Start 09/19/18 at 21:00 Hydrochlorothiazide (Hydrochlorothiazide) 25 mg DAILY PO Last administered on 09/23/18 08:28; Admin Dose 25 MG; Start 09/20/18 at 09:00 Lisinopril (Zestril) 20 mg DAILY PO Last administered on 8/1/19at 08:27; Admin Dose 20 MG; Start 09/20/18 at 09:00 Lubiprostone (Amitiza) 24 mcg BID PO Last administered on 09/22/18 20:51; Admin Dose 24 MCG; Start 09/19/18 at 21:00 Bisacodyl (Dulcolax Supp) 10 mg DAILY PRN [place] CONSTIPATION; Start 09/20/18 at 11:00 Acetaminophen/ Hydrocodone Bitart ([place] (5/325)) 1 tab Q4 PRN PO MODERATE PAIN LEVEL 4-6 Last administered on 09/23/18 08:20; Admin Dose 1 TAB; Start 09/20/18 at 15:30 Acetaminophen/ Hydrocodone Bitart ([place] (5/325)) 2 tab Q4H PRN PO SEVERE PAIN LEVEL 7-10 Last administered on 09/22/18 09:34; Admin Dose 2 TAB; Start 09/20/18 at 15:30 Psyllium Hydrophilic Mucilloid (Metamucil) 1 pkt BID PO Last administered on 09/22/18 09:35; Admin Dose 1 PKT; Start 09/21/18 at 21:00 Lactulose (Enulose) 20 gm BID PRN PO CONSTIPATION Last administered on 09/22/18 09:33; Admin Dose 20 GM; Start 09/21/18 at 15:30 Docusate Sodium (Colace) 250 mg BID PO Last administered on 09/22/18 09:36; Admin Dose 250 MG; Start 09/21/18 at 21:00 Ondansetron HCl (Zofran Odt) 8 mg Q6H PRN ODT NAUSEA; Start 09/22/18 at 16:30 Senna (Senokot) 1 tab QHS PO ; Start 09/22/18 at 21:00 Lidocaine (Lidoderm) 1 patch DAILY TD Last administered on 09/23/18 08:26; Admin Dose 1 PATCH; Start 09/23/18 at 09:00 Senna (Senokot) 2 tab BID PO ; Start 09/23/18 at 21:00 TUSHAR MANNING NP Sep 23, 2018 13:48
[2018-09-23 14:47] VITALS: BP 127/64; PULSE 78; RESP 18
[2018-09-23 19:49] VITALS: BP 125/56; PULSE 77
[2018-09-23] MEDS: SENNA TAB PO SCH ×2 (21:00→22:10)
[2018-09-23] MEDS: ATORVASTATIN 40 MG TAB PO SCH (22:10)
[2018-09-24 02:12] VITALS: BP 131/63; PULSE 77; RESP 18
[2018-09-24] MEDS: HYDROCODONE/APAP (5/325) TAB PO PRN ×3 (05:36→20:05)
[2018-09-24 07:30] VITALS: BP 140/63; PULSE 77; RESP 20
[2018-09-24] MEDS: DOCUSATE SODIUM 250 MG CAP PO SCH ×2 (09:12→20:02)
[2018-09-24] MEDS: LUBIPROSTONE 24 MCG CAP PO SCH ×2 (09:12→20:08)
[2018-09-24] MEDS: ASPIRIN 81 MG TAB PO SCH (09:12)
[2018-09-24] MEDS: ATENOLOL 50 MG TAB PO SCH ×2 (09:12→20:04)
[2018-09-24] MEDS: PSYLLIUM 28% PACKET PO SCH ×2 (09:13→20:02)
[2018-09-24] MEDS: AMLODIPINE 5 MG TAB PO SCH (09:13)
[2018-09-24] MEDS: FAMOTIDINE 20 MG TAB PO SCH ×2 (09:13→20:02)
[2018-09-24] MEDS: LISINOPRIL 20 MG TAB PO SCH (09:13)
[2018-09-24] MEDS: CALCIUM/VITAMIN D (500/200) TAB PO SCH (09:13)
[2018-09-24] MEDS: HYDROCHLOROTHIAZIDE 25 MG TAB PO SCH (09:13)
[2018-09-24] MEDS: DULOXETINE 30 MG CAP DR PO SCH (09:14)
[2018-09-24] MEDS: LIDOCAINE 5% PATCH TD SCH (09:14)
[2018-09-24] MEDS: SENNA TAB PO SCH ×3 (09:14→21:00)
[2018-09-24] MEDS: ENOXAPARIN 40 MG/0.4 ML SYG SC SCH (09:15)
[2018-09-24 14:00] VITALS: BP 153/68; PULSE 80; RESP 18
--- NOTE | 2018-09-24 14:23 | PN ---
Date/Time of Note Date/Time of Note DATE: 09/24/18 TIME: 14:22 Assessment/Plan VTE Prophylaxis Risk score (from Ns)>0 risk: 4 SCD applied (from [facility] [place]): No SCD contraindicated: other Pharmacological prophylaxis: LMWH Lines/Catheters Urinary Cath still in place: No Assessment/Plan Hospital Course SUBJECTIVE: NO ACUTE EVENTS OBJECTIVE: Physical Exam General: Obese, no apparent distress. HEENT: Normocephalic, atraumatic. Eyes: Anicteric sclerae, conjunctivae clear. ENT: Nasal septum midline, oral mucosa moist. Neck: Short and obese. Respiratory: Bilaterally diminished breath sounds. No use of accessory muscles of respiration. No adventitious breath sounds. Cardiovascular: S1, S2 heard. Sternotomy scar. Regular rate and rhythm. Abdomen: Soft. Bowel sounds active in al four quadrants. Genitourinary: Deferred. Extremities: No cyanosis, no clubbing, no edema. Peripheral pulses palpable. Neurologic: Cranial nerves II through XII grossly intact. The patient is awake, alert, and oriented. ASSESSMENT & PLAN;77-year-old female w/CAD status post coronary artery bypass grafting, hypertension, dyslipidemia, osteoporosis, osteoarthritis, and obesity who had an unwitnessed fall,found to have mild compression fracture of the superior endplate of T12 vertebral body Mechanical fall w/Acute T12 vertebral body fracture. Pain control/PT/Rehab Hypertension -relatively stable. -Continue antihypertensives. CAD, status post coronary artery bypass grafting. -Continue aspirin/ beta-blockers/FAN inhibitors. Dyslipidemia. -Continue statins. Osteoporosis. -Continue calcium and vitamin D supplements. Obesity. -Lifestyle changes advised Constipation -Stable -Continue Amitiza/ Metamucil, senna/Colace DVT prophylaxis. Lovenox. The patient was seen in collaboration with Result Diagram: 09/20/18 0638 09/20/18 0638 Exam/Review of Systems Exam Vitals Vital Signs Date Temp Pulse Resp B/P (MAP) Pulse Ox O2 O2 Flow FiO2 Time Delivery Rate 09/24/18 98.0 77 20 140/63 96 Room Air 07:30 (88) Intake and Output 09/23/18 09/23/18 09/24/18 1515:00 23:00 07:00 IntakeIntake Total 360 ml 1140 ml OutputOutput Total 500 ml BalanceBalance 360 ml 1140 ml -500 ml Medications Medication Current Medications Miscellaneous Information (Pending Santyl Order For Wound Care) This patient ramirez... PRN PRN XX WOUND CARE; Start 09/19/18 at 15:00 Acetaminophen (Tylenol Tab) 650 mg Q6H PRN PO MILD PAIN(1-3)OR ELEVATED TEMP Last administered on 09/23/18 18:36; Admin Dose 650 MG; Start 09/19/18 at 15:00 Amlodipine Besylate (Norvasc) 5 mg DAILY PO Last administered on 09/24/18 09:13; Admin Dose 5 MG; Start 09/20/18 at 09:00 Aspirin (Aspirin) 81 mg DAILY PO Last administered on 09/24/18 09:12; Admin Dose 81 MG; Start 09/20/18 at 09:00 Atenolol (Tenormin) 50 mg BID PO Last administered on 09/24/18 09:12; Admin Dose 50 MG; Start 09/19/18 at 21:00 Atorvastatin Calcium (Lipitor) 40 mg HS PO Last administered on 09/23/18 22:10; Admin Dose 40 MG; Start 09/19/18 at 21:00 Bisacodyl (Dulcolax) 5 mg DAILY PRN PO CONSTIPATION; Start 09/19/18 at 15:00 Calcium/Vitamin D (Oyster Shell/ Vit-D (500/200)) 1 tab DAILY PO Last administered on 09/24/18 09:13; Admin Dose 1 TAB; Start 09/20/18 at 09:00 Duloxetine HCl (Cymbalta) 60 mg DAILY PO Last administered on 09/24/18 09:14; Admin Dose 60 MG; Start 09/20/18 at 09:00 Enoxaparin Sodium (Lovenox) 40 mg DAILY SC Last administered on 09/24/18 09:15; Admin Dose 40 MG; Start 09/20/18 at 09:00 Famotidine (Pepcid) 20 mg BID PO Last administered on 09/24/18 09:13; Admin Dose 20 MG; Start 09/19/18 at 21:00 Hydrochlorothiazide (Hydrochlorothiazide) 25 mg DAILY PO Last administered on 09/24/18 09:13; Admin Dose 25 MG; Start 09/20/18 at 09:00 Lisinopril (Zestril) 20 mg DAILY PO Last administered on 09/24/18 09:13; Admin Dose 20 MG; Start 09/20/18 at 09:00 Lubiprostone (Amitiza) 24 mcg BID PO Last administered on 09/24/18 09:12; Admin Dose 24 MCG; Start 09/19/18 at 21:00 Bisacodyl (Dulcolax Supp) 10 mg DAILY PRN [place] CONSTIPATION; Start 09/20/18 at 11:00 Acetaminophen/ Hydrocodone Bitart ([place] (5/325)) 1 tab Q4 PRN PO MODERATE PAIN LEVEL 4-6 Last administered on 09/24/18 10:31; Admin Dose 1 TAB; Start 09/20/18 at 15:30 Acetaminophen/ Hydrocodone Bitart ([place] (5/325)) 2 tab Q4H PRN PO SEVERE PAIN LEVEL 7-10 Last administered on 09/22/18 09:34; Admin Dose 2 TAB; Start 09/20/18 at 15:30 Psyllium Hydrophilic Mucilloid (Metamucil) 1 pkt BID PO Last administered on 09/24/18 09:13; Admin Dose 1 PKT; Start 09/21/18 at 21:00 Lactulose (Enulose) 20 gm BID PRN PO CONSTIPATION Last administered on 09/22/18 09:33; Admin Dose 20 GM; Start 09/21/18 at 15:30 Docusate Sodium (Colace) 250 mg BID PO Last administered on 09/24/18 09:12; Admin Dose 250 MG; Start 09/21/18 at 21:00 Ondansetron HCl (Zofran Odt) 8 mg Q6H PRN ODT NAUSEA; Start 09/22/18 at 16:30 Senna (Senokot) 1 tab QHS PO Last administered on 09/23/18 22:10; Admin Dose 1 TAB; Start 09/22/18 at 21:00 Lidocaine (Lidoderm) 1 patch DAILY TD Last administered on 09/24/18 09:14; Admin Dose 1 PATCH; Start 09/23/18 at 09:00 Senna (Senokot) 2 tab BID PO Last administered on 09/24/18 09:14; Admin Dose 2 TAB; Start 09/23/18 at 21:00 TUSHAR MANNING NP Sep 24, 2018 14:23
--- NOTE | 2018-09-24 15:08 | PN ---
Date/Time of Note Date/Time of Note DATE: 09/24/18 TIME: 15:07 Subjective Patient comfortable, no complaints Objective Vital Signs Date Temp Pulse Resp B/P (MAP) Pulse Ox O2 O2 Flow FiO2 Time Delivery Rate 09/24/18 98.0 77 20 140/63 96 Room Air 07:30 (88) Intake and Output 09/23/18 09/23/18 09/24/18 1515:00 23:00 07:00 IntakeIntake Total 360 ml 1140 ml OutputOutput Total 500 ml BalanceBalance 360 ml 1140 ml -500 ml Exam pulm-cta abd-soft amb-sba Results/Medications Result Diagram: 09/20/1838 09/20/1838 Medications Current Medications Miscellaneous Information (Pending [facility] Order For Wound Care) This patient ramirez... PRN PRN XX WOUND CARE; Start 09/19/18 at 15:00 Acetaminophen (Tylenol Tab) 650 mg Q6H PRN PO MILD PAIN(1-3)OR ELEVATED TEMP Last administered on 09/23/18at 18:36; Admin Dose 650 MG; Start 09/19/18 at 15:00 Amlodipine Besylate (Norvasc) 5 mg DAILY PO Last administered on 09/24/18 09:13; Admin Dose 5 MG; Start 09/20/18 at 09:00 Aspirin (Aspirin) 81 mg DAILY PO Last administered on 09/24/18 09:12; Admin Dose 81 MG; Start 09/20/18 at 09:00 Atenolol (Tenormin) 50 mg BID PO Last administered on 09/24/18 09:12; Admin Dose 50 MG; Start 09/19/18 at 21:00 Atorvastatin Calcium (Lipitor) 40 mg HS PO Last administered on 09/23/18at 22:10; Admin Dose 40 MG; Start 09/19/18 at 21:00 Bisacodyl (Dulcolax) 5 mg DAILY PRN PO CONSTIPATION; Start 09/19/18 at 15:00 Calcium/Vitamin D ([place]yster Shell/ Vit-D (500/200)) 1 tab DAILY PO Last administered on 09/24/18 09:13; Admin Dose 1 TAB; Start 09/20/18 at 09:00 Duloxetine HCl (Cymbalta) 60 mg DAILY PO Last administered on 09/24/18 09:14; Admin Dose 60 MG; Start 09/20/18 at 09:00 Enoxaparin Sodium (Lovenox) 40 mg DAILY SC Last administered on 09/24/18 09:15; Admin Dose 40 MG; Start 09/20/18 at 09:00 Famotidine (Pepcid) 20 mg BID PO Last administered on 09/24/18 09:13; Admin Dose 20 MG; Start 09/19/18 at 21:00 Hydrochlorothiazide (Hydrochlorothiazide) 25 mg DAILY PO Last administered on 09/24/18 09:13; Admin Dose 25 MG; Start 09/20/18 at 09:00 Lisinopril (Zestril) 20 mg DAILY PO Last administered on 09/24/18 09:13; Admin Dose 20 MG; Start 09/20/18 at 09:00 Lubiprostone (Amitiza) 24 mcg BID PO Last administered on 09/24/18 09:12; Admin Dose 24 MCG; Start 09/19/18 at 21:00 Bisacodyl (Dulcolax Supp) 10 mg DAILY PRN [place] CONSTIPATION; Start 09/20/18 at 11:00 Acetaminophen/ Hydrocodone Bitart ([place] (5/325)) 1 tab Q4 PRN PO MODERATE PAIN LEVEL 4-6 Last administered on 09/24/18 10:31; Admin Dose 1 TAB; Start 09/20/18 at 15:30 Acetaminophen/ Hydrocodone Bitart ([place] (5/325)) 2 tab Q4H PRN PO SEVERE PAIN LEVEL 7-10 Last administered on 09/22/18 09:34; Admin Dose 2 TAB; Start 09/20/18 at 15:30 Psyllium Hydrophilic Mucilloid (Metamucil) 1 pkt BID PO Last administered on 09/24/18 09:13; Admin Dose 1 PKT; Start 09/21/18 at 21:00 Lactulose (Enulose) 20 gm BID PRN PO CONSTIPATION Last administered on 09/22/18 09:33; Admin Dose 20 GM; Start 09/21/18 at 15:30 Docusate Sodium (Colace) 250 mg BID PO Last administered on 09/24/18 09:12; Admin Dose 250 MG; Start 09/21/18 at 21:00 Ondansetron HCl (Zofran Odt) 8 mg Q6H PRN ODT NAUSEA; Start 09/22/18 at 16:30 Senna (Senokot) 1 tab QHS PO Last administered on 09/23/18at 22:10; Admin Dose 1 TAB; Start 09/22/18 at 21:00 Lidocaine (Lidoderm) 1 patch DAILY TD Last administered on 09/24/18at 09:14; Admin Dose 1 PATCH; Start 09/23/18 at 09:00 Senna (Senokot) 2 tab BID PO Last administered on 09/24/18at 09:14; Admin Dose 2 TAB; Start 09/23/18 at 21:00 Assessment/Plan Additional Assessment/Plan Rehab- Other orthopedic injury with T12 vertebral fracture. Great progress, continue treatment plan Acute pain syndrome. Status post ileus. Hyperlipidemia. Coronary artery disease with history of CABG. Hypertension. HARRY MILLER MD Sep 24, 2018 15:08
[2018-09-24 19:57] VITALS: BP 140/58; PULSE 76; RESP 18
[2018-09-24] MEDS: ATORVASTATIN 40 MG TAB PO SCH (20:02)
[2018-09-25 02:00] VITALS: BP 132/67; PULSE 72; RESP 18
[2018-09-25] MEDS: HYDROCODONE/APAP (5/325) TAB PO PRN ×4 (02:00→20:34)
[2018-09-25] MEDS ORDERED: NITROGLYCERIN (SL) 0.4 MG TAB SL PRN (03:00)
[2018-09-25 07:00] VITALS: BP 164/57; PULSE 77; RESP 18
[2018-09-25] MEDS: LUBIPROSTONE 24 MCG CAP PO SCH ×2 (09:11→20:06)
[2018-09-25] MEDS: DOCUSATE SODIUM 250 MG CAP PO SCH ×2 (09:11→20:05)
[2018-09-25] MEDS: ASPIRIN 81 MG TAB PO SCH (09:11)
[2018-09-25] MEDS: FAMOTIDINE 20 MG TAB PO SCH ×2 (09:11→20:06)
[2018-09-25] MEDS: CALCIUM/VITAMIN D (500/200) TAB PO SCH (09:11)
[2018-09-25] MEDS: DULOXETINE 30 MG CAP DR PO SCH (09:11)
[2018-09-25] MEDS: LISINOPRIL 20 MG TAB PO SCH (09:12)
[2018-09-25] MEDS: HYDROCHLOROTHIAZIDE 25 MG TAB PO SCH (09:13)
[2018-09-25] MEDS: AMLODIPINE 5 MG TAB PO SCH (09:13)
[2018-09-25] MEDS: ATENOLOL 50 MG TAB PO SCH ×2 (09:16→20:06)
[2018-09-25] MEDS: PSYLLIUM 28% PACKET PO SCH ×2 (09:19→20:06)
[2018-09-25] MEDS: ENOXAPARIN 40 MG/0.4 ML SYG SC SCH (09:22)
[2018-09-25] MEDS: LIDOCAINE 5% PATCH TD SCH (09:23)
--- NOTE | 2018-09-25 10:03 | PN ---
Date/Time of Note Date/Time of Note DATE: 09/25/18 TIME: 10:02 Subjective RN reports paitient had CP last night, none currently Objective Vital Signs Date Temp Pulse Resp B/P (MAP) Pulse Ox O2 O2 Flow FiO2 Time Delivery Rate 09/25/18 97.8 77 18 164/57 94 Room Air 07:00 (92) Intake and Output 09/24/18 09/24/18 09/25/18 1515:00 23:00 07:00 IntakeIntake Total 300 ml 870 ml 950 ml BalanceBalance 300 ml 870 ml 950 ml Exam pulm-cta bd-soft sba activities Results/Medications Results 24 hrs Laboratory Tests Test 09/25/18 01:36 Troponin I < 0.012 Medications Current Medications Miscellaneous Information [facility] This patient ramirez... PRN PRN XX WOUND CARE; Start 09/19/18 at 15:00 Acetaminophen (Tylenol Tab) 650 mg Q6H PRN PO MILD PAIN(1-3)OR ELEVATED TEMP Last administered on 09/23/18at 18:36; Admin Dose 650 MG; Start 09/19/18 at 15:00 Amlodipine Besylate (Norvasc) 5 mg DAILY PO Last administered on 09/25/18 09:13; Admin Dose 5 MG; Start 09/20/18 at 09:00 Aspirin (Aspirin) 81 mg DAILY PO Last administered on 09/25/18 09:11; Admin Dose 81 MG; Start 09/20/18 at 09:00 Atenolol (Tenormin) 50 mg BID PO Last administered on 09/25/18 09:16; Admin Dose 50 MG; Start 09/19/18 at 21:00 Atorvastatin Calcium (Lipitor) 40 mg HS PO Last administered on 09/24/18 20:02; Admin Dose 40 MG; Start 09/19/18 at 21:00 Bisacodyl (Dulcolax) 5 mg DAILY PRN PO CONSTIPATION; Start 09/19/18 at 15:00 Calcium/Vitamin D ([place]yster [place]/ Vit-D (500/200)) 1 tab DAILY PO Last administered on 09/25/18 09:11; Admin Dose 1 TAB; Start 09/20/18 at 09:00 Duloxetine HCl (Cymbalta) 60 mg DAILY PO Last administered on 09/25/18 09:11; Admin Dose 60 MG; Start 09/20/18 at 09:00 Enoxaparin Sodium (Lovenox) 40 mg DAILY SC Last administered on 09/25/18 09:22; Admin Dose 40 MG; Start 09/20/18 at 09:00 Famotidine (Pepcid) 20 mg BID PO Last administered on 09/25/18 09:11; Admin Dose 20 MG; Start 09/19/18 at 21:00 Hydrochlorothiazide (Hydrochlorothiazide) 25 mg DAILY PO Last administered on 09/25/18 09:13; Admin Dose 25 MG; Start 09/20/18 at 09:00 Lisinopril (Zestril) 20 mg DAILY PO Last administered on 09/25/18 09:12; Admin Dose 20 MG; Start 09/20/18 at 09:00 Lubiprostone (Amitiza) 24 mcg BID PO Last administered on 09/25/18 09:11; Admin Dose 24 MCG; Start 09/19/18 at 21:00 Bisacodyl (Dulcolax Supp) 10 mg DAILY PRN [place] CONSTIPATION; Start 09/20/18 at 11:00 Acetaminophen/ Hydrocodone Bitart ([place] (5/325)) 1 tab Q4 PRN PO MODERATE PAIN LEVEL 4-6 Last administered on 09/25/18 08:24; Admin Dose 1 TAB; Start 09/20/18 at 15:30 Acetaminophen/ Hydrocodone Bitart ([place] (5/325)) 2 tab Q4H PRN PO SEVERE PAIN LEVEL 7-10 Last administered on 09/22/18 09:34; Admin Dose 2 TAB; Start 09/20/18 at 15:30 Psyllium Hydrophilic Mucilloid (Metamucil) 1 pkt BID PO Last administered on 09/25/18 09:19; Admin Dose 1 PKT; Start 09/21/18 at 21:00 Lactulose (Enulose) 20 gm BID PRN PO CONSTIPATION Last administered on 09/22/18 09:33; Admin Dose 20 GM; Start 09/21/18 at 15:30 Docusate Sodium (Colace) 250 mg BID PO Last administered on 09/25/18 09:11; Admin Dose 250 MG; Start 09/21/18 at 21:00 Ondansetron HCl (Zofran Odt) 8 mg Q6H PRN ODT NAUSEA; Start 09/22/18 at 16:30 Lidocaine (Lidoderm) 1 patch DAILY TD Last administered on 09/25/18at 09:23; Admin Dose 1 PATCH; Start 09/23/18 at 09:00 Nitroglycerin (Nitroglycerin (Sl Tab) 0.4 Mg) 1 tab Q5M PRN SL ANGINA; Start 09/25/18 at 03:00 Assessment/Plan Additional Assessment/Plan Rehab- Other orthopedic injury with T12 vertebral fracture. Activities as tolerated Acute pain syndrome. Status post ileus. Hyperlipidemia. Coronary artery disease with history of CABG. Hypertension. HARRY MILLER MD Sep 25, 2018 10:03
--- NOTE | 2018-09-25 12:43 | PN ---
Date/Time of Note Date/Time of Note DATE: 09/25/18 TIME: 12:41 Assessment/Plan VTE Prophylaxis Risk score (from Ns)>0 risk: 4 SCD applied (from Ns): No SCD contraindicated: other Pharmacological prophylaxis: LMWH Lines/Catheters Urinary Cath still in place: No Assessment/Plan Hospital Course SUBJECTIVE: Reported some atypical chest pain in the morning. Currently chest pain-free. OBJECTIVE: Physical Exam General: Obese, no apparent distress. HEENT: Normocephalic, atraumatic. Eyes: Anicteric sclerae, conjunctivae clear. ENT: Nasal septum midline, oral mucosa moist. Neck: Short and obese. Respiratory: Bilaterally diminished breath sounds. No use of accessory muscles of respiration. No adventitious breath sounds. Cardiovascular: S1, S2 heard. Sternotomy scar. Regular rate and rhythm. Abdomen: Soft. Bowel sounds active in al four quadrants. Genitourinary: Deferred. Extremities: No cyanosis, no clubbing, no edema. Peripheral pulses palpable. Neurologic: Cranial nerves II through XII grossly intact. The patient is awake, alert, and oriented. ASSESSMENT & PLAN;77-year-old female w/CAD status post coronary artery bypass grafting, hypertension, dyslipidemia, osteoporosis, osteoarthritis, and obesity who had an unwitnessed fall,found to have mild compression fracture of the superior endplate of T12 vertebral body Mechanical fall w/Acute T12 vertebral body fracture. Pain control/PT/Rehab Hypertension -relatively stable. -Continue antihypertensives. CAD, status post coronary artery bypass grafting. -Continue aspirin/ beta-blockers/FAN inhibitors. Dyslipidemia. -Continue statins. Osteoporosis. -Continue calcium and vitamin D supplements. Obesity. -Lifestyle changes advised Constipation -Stable -Continue Amitiza/ Metamucil, senna/Colace Atypical chest pain, likely musculoskeletal with physical therapy -Resolved -Troponin negative, EKG negative. Continue to monitor. DVT prophylaxis. Lovenox. The patient was seen in collaboration with Results 24hrs Laboratory Tests Test 09/25/18 01:36 Troponin I < 0.012 Exam/Review of Systems Exam Vitals Vital Signs Date Temp Pulse Resp B/P (MAP) Pulse Ox O2 O2 Flow FiO2 Time Delivery Rate 09/25/18 97.8 77 18 164/57 94 Room Air 07:00 (92) Intake and Output 09/24/18 09/24/1819 1515:00 23:00 07:00 IntakeIntake Total 300 ml 870 ml 950 ml BalanceBalance 300 ml 870 ml 950 ml Results Results 24hrs Laboratory Tests Test 09/25/18 01:36 Troponin I < 0.012 Medications Medication Current Medications Miscellaneous Information ([facility] This patient ramirez... PRN PRN XX WOUND CARE; Start 09/19/18 at 15:00 Acetaminophen (Tylenol Tab) 650 mg Q6H PRN PO MILD PAIN(1-3)OR ELEVATED TEMP Last administered on 09/23/18 18:36; Admin Dose 650 MG; Start 09/19/18 at 15:00 Amlodipine Besylate (Norvasc) 5 mg DAILY PO Last administered on 09/25/18 09:13; Admin Dose 5 MG; Start 09/20/18 at 09:00 Aspirin (Aspirin) 81 mg DAILY PO Last administered on 09/25/18 09:11; Admin Dose 81 MG; Start 09/20/18 at 09:00 Atenolol (Tenormin) 50 mg BID PO Last administered on 09/25/18 09:16; Admin Dose 50 MG; Start 09/19/18 at 21:00 Atorvastatin Calcium (Lipitor) 40 mg HS PO Last administered on 09/24/18 20:02; Admin Dose 40 MG; Start 09/19/18 at 21:00 Bisacodyl (Dulcolax) 5 mg DAILY PRN PO CONSTIPATION; Start 09/19/18 at 15:00 Calcium/Vitamin D (Oyster Shell/ Vit-D (500/200)) 1 tab DAILY PO Last administered on 09/25/18 09:11; Admin Dose 1 TAB; Start 09/20/18 at 09:00 Duloxetine HCl (Cymbalta) 60 mg DAILY PO Last administered on 09/25/18 09:11; Admin Dose 60 MG; Start 09/20/18 at 09:00 Enoxaparin Sodium (Lovenox) 40 mg DAILY SC Last administered on 09/25/18 09:22; Admin Dose 40 MG; Start 09/20/18 at 09:00 Famotidine (Pepcid) 20 mg BID PO Last administered on 09/25/18 09:11; Admin Dose 20 MG; Start 09/19/18 at 21:00 Hydrochlorothiazide (Hydrochlorothiazide) 25 mg DAILY PO Last administered on 09/25/18 09:13; Admin Dose 25 MG; Start 09/20/18 at 09:00 Lisinopril (Zestril) 20 mg DAILY PO Last administered on 09/25/18 09:12; Admin Dose 20 MG; Start 09/20/18 at 09:00 Lubiprostone (Amitiza) 24 mcg BID PO Last administered on 09/25/18 09:11; Admin Dose 24 MCG; Start 09/19/18 at 21:00 Bisacodyl (Dulcolax Supp) 10 mg DAILY PRN [place] CONSTIPATION; Start 09/20/18 at 11:00 Acetaminophen/ Hydrocodone Bitart ([place] (5/325)) 1 tab Q4 PRN PO MODERATE PAIN LEVEL 4-6 Last administered on 09/25/18 08:24; Admin Dose 1 TAB; Start 09/20/18 at 15:30 Acetaminophen/ Hydrocodone Bitart ([place] (5/325)) 2 tab Q4H PRN PO SEVERE PAIN LEVEL 7-10 Last administered on 09/22/18 09:34; Admin Dose 2 TAB; Start 09/20/18 at 15:30 Psyllium Hydrophilic Mucilloid (Metamucil) 1 pkt BID PO Last administered on 09/25/18 09:19; Admin Dose 1 PKT; Start 09/21/18 at 21:00 Lactulose (Enulose) 20 gm BID PRN PO CONSTIPATION Last administered on 09/22/18 09:33; Admin Dose 20 GM; Start 09/21/18 at 15:30 Docusate Sodium (Colace) 250 mg BID PO Last administered on 09/25/18 09:11; Admin Dose 250 MG; Start 09/21/18 at 21:00 Ondansetron HCl (Zofran Odt) 8 mg Q6H PRN ODT NAUSEA; Start 09/22/18 at 16:30 Lidocaine (Lidoderm) 1 patch DAILY TD Last administered on 09/25/18 09:23; Admin Dose 1 PATCH; Start 09/23/18 at 09:00 Nitroglycerin (Nitroglycerin (Sl Tab) 0.4 Mg) 1 tab Q5M PRN SL ANGINA; Start 09/25/18 at 03:00 TUSHAR MANNING NP Sep 25, 2018 12:43
[2018-09-25 14:00] VITALS: BP 143/88; PULSE 87; RESP 18
[2018-09-25] MEDS: ATORVASTATIN 40 MG TAB PO SCH (20:04)
[2018-09-25 20:05] VITALS: BP 176/74; PULSE 85; RESP 18
[2018-09-25 21:00] VITALS: BP 140/67; PULSE 77; RESP 18
[2018-09-26 02:00] VITALS: BP 138/72; PULSE 82; RESP 18
[2018-09-26] MEDS: HYDROCODONE/APAP (5/325) TAB PO PRN ×4 (02:21→17:25)
[2018-09-26 07:00] VITALS: BP 142/63; PULSE 84; RESP 18
[2018-09-26] MEDS: PSYLLIUM 28% PACKET PO SCH (09:56)
[2018-09-26] MEDS: LUBIPROSTONE 24 MCG CAP PO SCH (09:57)
[2018-09-26] MEDS: DULOXETINE 30 MG CAP DR PO SCH (09:57)
[2018-09-26] MEDS: DOCUSATE SODIUM 250 MG CAP PO SCH (09:57)
[2018-09-26] MEDS: HYDROCHLOROTHIAZIDE 25 MG TAB PO SCH (09:58)
[2018-09-26] MEDS: FAMOTIDINE 20 MG TAB PO SCH (09:58)
[2018-09-26] MEDS: CALCIUM/VITAMIN D (500/200) TAB PO SCH (09:58)
[2018-09-26] MEDS: ATENOLOL 50 MG TAB PO SCH (09:58)
[2018-09-26] MEDS: LISINOPRIL 20 MG TAB PO SCH (09:59)
[2018-09-26] MEDS: ASPIRIN 81 MG TAB PO SCH (09:59)
[2018-09-26] MEDS: LIDOCAINE 5% PATCH TD SCH (10:00)
[2018-09-26] MEDS: ENOXAPARIN 40 MG/0.4 ML SYG SC SCH (10:00)
[2018-09-26] MEDS: AMLODIPINE 5 MG TAB PO SCH (10:03)
--- NOTE | 2018-09-26 10:43 | PN ---
Date/Time of Note Date/Time of Note DATE: 09/26/18 TIME: 10:42 Assessment/Plan VTE Prophylaxis Risk score (from Ns)>0 risk: 4 SCD applied (from [facility] [place]): No SCD contraindicated: other Pharmacological prophylaxis: LMWH Lines/Catheters Urinary Cath still in place: No Assessment/Plan Hospital Course SUBJECTIVE: No acute distress. OBJECTIVE: Physical Exam General: Obese, no apparent distress. HEENT: Normocephalic, atraumatic. Eyes: Anicteric sclerae, conjunctivae clear. ENT: Nasal septum midline, oral mucosa moist. Neck: Short and obese. Respiratory: Bilaterally diminished breath sounds. No use of accessory muscles of respiration. No adventitious breath sounds. Cardiovascular: S1, S2 heard. Sternotomy scar. Regular rate and rhythm. Abdomen: Soft. Bowel sounds active in al four quadrants. Genitourinary: Deferred. Extremities: No cyanosis, no clubbing, no edema. Peripheral pulses palpable. Neurologic: Cranial nerves II through XII grossly intact. The patient is awake, alert, and oriented. ASSESSMENT & PLAN;77-year-old female w/CAD status post coronary artery bypass grafting, hypertension, dyslipidemia, osteoporosis, osteoarthritis, and obesity who had an unwitnessed fall,found to have mild compression fracture of the superior endplate of T12 vertebral body Mechanical fall w/Acute T12 vertebral body fracture. Pain control/PT/Rehab Hypertension -relatively stable. -Continue antihypertensives. CAD, status post coronary artery bypass grafting. -Continue aspirin/ beta-blockers/FAN inhibitors. Dyslipidemia. -Continue statins. Osteoporosis. -Continue calcium and vitamin D supplements. Obesity. -Lifestyle changes advised Constipation -Stable -Continue Amitiza/ Metamucil, senna/Colace Atypical chest pain, likely musculoskeletal with physical therapy -Resolved -Troponin negative, EKG negative. Continue to monitor. DVT prophylaxis. Lovenox. The patient was seen in collaboration with Exam/Review of Systems Exam Vitals Vital Signs Date Temp Pulse Resp B/P (MAP) Pulse Ox O2 O2 Flow FiO2 Time Delivery Rate 09/26/18 98.3 84 18 142/63 90 Room Air 07:00 (89) Intake and Output 09/25/18 09/25/18 09/26/18 1515:00 23:00 07:00 IntakeIntake Total 1700 ml 300 ml OutputOutput Total 600 ml BalanceBalance 1100 ml 300 ml Medications Medication Current Medications Miscellaneous Information (Pending [facility] Order For Wound Care) This patient ramirez... PRN PRN XX WOUND CARE; Start 09/19/18 at 15:00 Acetaminophen (Tylenol Tab) 650 mg Q6H PRN PO MILD PAIN(1-3)OR ELEVATED TEMP Last administered on 09/23/18 18:36; Admin Dose 650 MG; Start 09/19/18 at 15:00 Amlodipine Besylate (Norvasc) 5 mg DAILY PO Last administered on 09/26/18 10:03; Admin Dose 5 MG; Start 09/20/18 at 09:00 Aspirin (Aspirin) 81 mg DAILY PO Last administered on 09/26/18 09:59; Admin Do se 81 MG; Start 09/20/18 at 09:00 Atenolol (Tenormin) 50 mg BID PO Last administered on 09/26/18 09:58; Admin Dose 50 MG; Start 09/19/18 at 21:00 Atorvastatin Calcium (Lipitor) 40 mg HS PO Last administered on 09/25/18 20:04; Admin Dose 40 MG; Start 09/19/18 at 21:00 Bisacodyl (Dulcolax) 5 mg DAILY PRN PO CONSTIPATION; Start 09/19/18 at 15:00 Calcium/Vitamin D (Oyster Shell/ Vit-D (500/200)) 1 tab DAILY PO Last administered on 09/26/18 09:58; Admin Dose 1 TAB; Start 09/20/18 at 09:00 Duloxetine HCl (Cymbalta) 60 mg DAILY PO Last administered on 09/26/18 09:57; Admin Dose 60 MG; Start 09/20/18 at 09:00 Enoxaparin Sodium (Lovenox) 40 mg DAILY SC Last administered on 09/26/18 10:00; Admin Dose 40 MG; Start 09/20/18 at 09:00 Famotidine (Pepcid) 20 mg BID PO Last administered on 09/26/18 09:58; Admin Dose 20 MG; Start 09/19/18 at 21:00 Hydrochlorothiazide (Hydrochlorothiazide) 25 mg DAILY PO Last administered on 09/26/18 09:58; Admin Dose 25 MG; Start 09/20/18 at 09:00 Lisinopril (Zestril) 20 mg DAILY PO Last administered on 09/26/18 09:59; Admin Dose 20 MG; Start 09/20/18 at 09:00 Lubiprostone (Amitiza) 24 mcg BID PO Last administered on 09/26/18 09:57; Admin Dose 24 MCG; Start 09/19/18 at 21:00 Bisacodyl (Dulcolax Supp) 10 mg DAILY PRN [place] CONSTIPATION; Start 09/20/18 at 11:00 Acetaminophen/ Hydrocodone Bitart ([place] (5/325)) 1 tab Q4 PRN PO MODERATE PAIN LEVEL 4-6 Last administered on 09/26/18 06:56; Admin Dose 1 TAB; Start 09/20/18 at 15:30 Acetaminophen/ Hydrocodone Bitart ([place] (5/325)) 2 tab Q4H PRN PO SEVERE PAIN LEVEL 7-10 Last administered on 09/22/18 09:34; Admin Dose 2 TAB; Start 09/20/18 at 15:30 Psyllium Hydrophilic Mucilloid (Metamucil) 1 pkt BID PO Last administered on 09/26/18 09:56; Admin Dose 1 PKT; Start 09/21/18 at 21:00 Lactulose (Enulose) 20 gm BID PRN PO CONSTIPATION Last administered on 09/22/18 09:33; Admin Dose 20 GM; Start 09/21/18 at 15:30 Docusate Sodium (Colace) 250 mg BID PO Last administered on 09/26/18 09:57; Admin Dose 250 MG; Start 09/21/18 at 21:00 Ondansetron HCl (Zofran Odt) 8 mg Q6H PRN ODT NAUSEA; Start 09/22/18 at 16:30 Lidocaine (Lidoderm) 1 patch DAILY TD Last administered on 09/26/18at 10:00; Admin Dose 1 PATCH; Start 09/23/18 at 09:00 Nitroglycerin (Nitroglycerin (Sl Tab) 0.4 Mg) 1 tab Q5M PRN SL ANGINA; Start 09/25/18 at 03:00 TUSHAR MANNING NP Sep 26, 2018 10:43
[2018-09-26 14:00] VITALS: BP 125/59; PULSE 72; RESP 18
--- NOTE | 2018-09-27 15:01 | RADRPT ---
Vent Rate: 74 bpm RR Interval: 808 msec SD Interval: 174 msec QRS Duration: 142 msec QT Interval: 444 msec QTC Interval: 494 msec P-R-T [place]: 60 - -12 - 50 degrees Sinus rhythm...normal P axis, V-rate 50- 99 Right bundle branch block...QRSd>120, terminal axis(90,270) Anterolateral infarct, age indeterminate...Q >35mS, flat/neg T, V3-V6,I,aVL Electronically Signed By: Cassius Lowery
--- NOTE | 2018-09-29 13:46 | DS ---
Date/Time of Note Date/Time of Note DATE: 09/29/18 TIME: 13:45 Discharge Summary Admission/Discharge Info Admit Date/Time Sep 19, 2018 at 14:21 Discharge Date/Time Sep 26, 2018 at 18:10 Discharge Diagnosis 1. Other orthopedic injury with T12 vertebral fracture. 2. Status post ileus, resolved 3. Hyperlipidemia. 4. Coronary artery disease with history of CABG. 5. Hypertension. 6. Improvements in self-care and mobility. Patient Condition: Good Hospital Course The patient was admitted for comprehensive interdisciplinary rehabilitation and made steady functional gains from a Mod level to a SBA level for self care tasks and mobility including ambulating over 150 feet with the use of a FWW. Patient is being discharged home with the recommendation of home health PT, OT and RN follow up. The DC meds are per the medication reconciliation sheet. The discharge equipment recommendations include: FWW, BSC, shower chair. The patient will follow up with PMD upon DC. Home Meds Active Scripts Polyethylene Glycol* (Miralax*) 17 Gm Powd.pack, 17 GM PO BID, #30 Prov:DENG AMEZCUA NP 09/19/18 Lubiprostone* (Amitiza*) 24 Mcg Capsule, 24 MCG PO BID, #30 CAP Prov:DENG AMEZCUA NP 09/19/18 Bisacodyl* (Bisacodyl*) 5 Mg Tablet.dr, 10 MG PO DAILY PRN for CONSTIPATION for 7 Days Prov:DENG AMEZCUA NP 09/19/18 Ketorolac Tromethamine (Ketorolac Tromethamine) 30 Mg/1 Ml Vial, 30 MG IV Q6H PRN for PAIN LEVEL 1-3 for 1 Day, VIAL Prov:DENG AMEZCUA NP 09/19/18 Hydrocodone Bit-Acetaminophen (Hydrocodone Bit-APAP) 5-325MG Tablet, 1 TAB PO Q6H PRN for .MOD PAIN 4-6, #20 TAB Prov:DENG AMEZCUA NP 09/19/18 Lisinopril* (Lisinopril*) 20 Mg Tablet, 20 MG PO DAILY, #30 TAB Prov:DENG AMEZCUA NP 09/19/18 Atenolol* (Atenolol*) 50 Mg Tablet, 50 MG PO BID, #60 TAB Prov:DENG AMEZCUA NP 09/19/18 Reported Medications Hydrochlorothiazide* (Hydrochlorothiazide*) 25 Mg Tab, 25 MG PO DAILY, #30 TAB 09/13/18 Duloxetine Hcl* (Duloxetine Hcl*) 60 Mg Capsule.dr, 1 CAP ORAL DAILY 09/13/18 Calcium Carbonate/Vitamin D3 (Oyster Shell Calcium + D Cplt) 1 Each Tablet, 1 TAB PO DAILY, TAB 09/13/18 Atorvastatin* (Atorvastatin*) 40 Mg Tablet, 40 MG PO QHS, #30 TAB 09/13/18 Aspirin* (Aspirin* Chew) 81 Mg Tab.chew, 81 MG PO DAILY, TAB.CHEW 09/13/18 Amlodipine Besylate* (Amlodipine Besylate*) 5 Mg Tablet, 1 TAB ORAL DAILY 09/13/18 Alendronate Sodium* (Fosamax*) 70 Mg Tablet, 1 TAB ORAL weekly on Thursday09/13/18 Primary Care Provider Not On Staff Doctor HARRY MILLER MD Sep 29, 2018 13:46
== END 2018-09-26 18:10 | disposition home health service (06) | DRG 560 ==
LOC: VRC 14:21
PROVIDERS: ADMIT Physical Medicine & Rehabilitation; ATTEND Internal Medicine Pulmonary Disease
PROC: F08Z2ZZ Grooming/Personal Hygiene Treatment (ICD-10-PCS; 2018-09-19)
PROC: F08Z1ZZ Dressing Techniques Treatment (ICD-10-PCS; 2018-09-19)
PROC: F08Z0ZZ Bathing/Showering Techniques Treatment (ICD-10-PCS; 2018-09-19)
PROC: F07Z9ZZ Gait Training/Functional Ambulation Treatment (ICD-10-PCS; principal; 2018-09-20)
PROC: F07Z5ZZ Bed Mobility Treatment (ICD-10-PCS; 2018-09-20)
PROC: F07Z8ZZ Transfer Training Treatment (ICD-10-PCS; 2018-09-20)
DX: S22.089D Unspecified fracture of T11-T12 vertebra, subsequent encounter for fracture with routine healing (principal); F33.9 Major depressive disorder, recurrent, unspecified; I25.10 Atherosclerotic heart disease of native coronary artery without angina pectoris; I10 Essential (primary) hypertension; E78.5 Hyperlipidemia, unspecified; E66.9 Obesity, unspecified; M19.90 Unspecified osteoarthritis, unspecified site; G89.11 Acute pain due to trauma; K59.00 Constipation, unspecified; M81.0 Age-related osteoporosis without current pathological fracture; R07.89 Other chest pain; Z68.38 Body mass index [BMI] 38.0-38.9, adult; W19.XXXD Unspecified fall, subsequent encounter; Z95.1 Presence of aortocoronary bypass graft
CPT/HCPCS: 80053; 81001; 84484; 85025; 87081; 87086; 93005; 97110; 97112; 97116; 97150; 97163; 97167; 97530; 97535; J1650; J1885